=== PATIENT | female | born 1940 | race Caucasian/White ===

== ENCOUNTER 2017-06-30 09:25 | Emergency (ER) | payer MEDICARE, OTHER ==
--- NOTE | 2017-06-30 10:39 | EDM.PDOC ---
ED HPI GENERAL MEDICAL PROBLEM - General Chief Complaint: General Stated Complaint: ILL FLU VERY TIRED Time Seen by Provider: 06/30/17 10:34 Source of Information: Reports: Patient, Family History Limitations: Reports: No Limitations - History of Present Illness INITIAL COMMENTS - FREE TEXT/NARRATIVE: pt has been il for several days with a hacking cough. Today she feels very achy and she is coughing alot. She is feeling more ill in the last 36 hours. Onset: Gradual, Other ( last 36 hours. ) Duration: Hour(s): Location: Reports: Chest, Other (pt is not eating. ) Associated Symptoms: Reports: Cough, Diaphoresis, Loss of Appetite, Weakness headache and pain across lower back Pain Score (Numeric/FACES): 6 - Related Data Allergies Allergy/AdvReac Type Severity Reaction Status Date / Time codeine Allergy Mild Nausea Verified 06/30/17 09:52 Home Meds: Home Meds Acyclovir [Zovirax] 200 mg PO DAILY 06/30/17 [History] Biotin 10,000 mcg PO DAILY 06/30/17 [History] Estradiol [Estradiol] 2 mg PO DAILY 06/30/17 [History] Fexofenadine [Anne-Marie] 180 mg PO ASDIRECTED PRN 06/30/17 [History] Ibrutinib [Imbruvica] 420 mg PO DAILY 06/30/17 [History] Past Medical History Cardiovascular History: Reports: High Cholesterol Musculoskeletal History: Reports: Other (See Below) Other Musculoskeletal History: osteopenia Oncologic (Cancer) History: Reports: Leukemia, Lymphoma, Other (See Below) Other Oncologic History: CLL 2013 - Infectious Disease History Infectious Disease History: Reports: Herpes - Past Surgical History HEENT Surgical History: Reports: Tonsillectomy GI Surgical History: Reports: Colonoscopy Female Surgical History: Reports: Hysterectomy, Salpingo-Oophorectomy Social & Family History - Tobacco Use Smoking Status *Q: Former Smoker Used Tobacco, but Quit: Yes Month Tobacco Last Used: 35 years ago - Caffeine Use Caffeine Use: Reports: Coffee - Recreational Drug Use Recreational Drug Use: No ED ROS GENERAL - Review of Systems Review Of Systems: See Below Constitutional: Reports: Chills, Weakness, Other ( cough) HEENT: Reports: Other (pt has had a sore throat off and on. ) Respiratory: Reports: Cough Cardiovascular: Reports: No Symptoms Endocrine: Reports: No Symptoms GI/Abdominal: Reports: Decreased Appetite, Other (pt has not vomited or had diarrhea. ) : Reports: No Symptoms, Other (pt was achy and did have some back pain. ) Musculoskeletal: Reports: Muscle Stiffness Skin: Reports: No Symptoms ED EXAM, GENERAL - Physical Exam Exam: See Below Free Text/Narrative:: pt appeared weak. She did not have a high temp-- it was 99. She was not in resp distress but was coughing frequently. Exam Limited By: No Limitations General Appearance: Alert, Other ( very pale a fatiqued appearing. ) Ears: Normal TMs Nose: Normal Inspection Throat/Mouth: Normal Inspection, Other ( no redness or exudate. ) Head: Atraumatic Neck: Normal Inspection, Other ( Pt does not have swollen nodes. ) Respiratory/Chest: Rales, Other ( Pt has a few rales at the lung bases. ) Cardiovascular: Regular Rate, Rhythm GI/Abdominal: Soft, Other (Mild epigastric tenderness) (Female) Exam: Deferred Rectal (Female) Exam: Deferred Back Exam: Normal Inspection Extremities: Normal Inspection Neurological: Alert, Oriented, Normal Cognition Course - Vital Signs Last Recorded V/S: Last Vital Signs Temp 36.2 C 06/30/17 12:51 Pulse 72 06/30/17 12:51 Resp 16 06/30/17 12:51 BP 113/74 06/30/17 12:51 Pulse Ox 98 06/30/17 12:51 - Orders/Labs/Meds Orders: Active Orders 24 hr Category Date Time Status CULTURE BLOOD [BC] Urgent Lab 06/30/17 11:58 Received CULTURE BLOOD [BC] Urgent Lab 06/30/17 12:02 Received CULTURE URINE [RM] Stat Lab 06/30/17 12:56 Received Sodium Chloride 0.9% [Normal Saline] 1,000 ml Med 06/30/17 11:15 Active IV ASDIRECTED Sodium Chloride 0.9% [Normal Saline] 1,000 ml Med 06/30/17 12:45 Active IV ASDIRECTED Blood Culture x2 Reflex Set [OM.PC] Urgent Oth 06/30/17 11:52 Ordered Medication Orders Sodium Chloride (Normal Saline) 1,000 mls @ 999 mls/hr IV ASDIRECTED DELORIS Last Admin: 06/30/17 11:34 Dose: 999 mls/hr Sodium Chloride (Normal Saline) 1,000 mls @ 300 mls/hr IV ASDIRECTED DELORIS Last Admin: 06/30/17 12:54 Dose: 300 mls/hr Labs: Laboratory Tests 06/30/17 06/30/17 06/30/17 Range/Units 10:30 10:30 10:59 WBC 12.7 H (4.5-11.0) K/uL RBC 4.11 (3.30-5.50) M/uL Hgb 13.3 (12.0-15.0) g/dL Hct 39.3 (36.0-48.0) % MCV 96 (80-98) fL MCH 32 H (27-31) pg MCHC 34 (32-36) % Plt Count 277 (150-400) K/uL Neut % (Auto) 76 H (36-66) % Lymph % (Auto) 14 L (24-44) % [place] % (Auto) 9 H (2-6) % Eos % (Auto) 1 L (2-4) % Add Manual Diff Yes Sodium 138 L (140-148) mmol/L Potassium 3.9 (3.6-5.2) mmol/L Chloride 105 (100-108) mmol/L Carbon Dioxide 26 (21-32) mmol/L Anion Gap 10.9 (5.0-14.0) mmol/L BUN 12 (7-18) mg/dL Creatinine 1.0 (0.6-1.0) mg/dL Est Cr Clr Drug Dosing 39.74 mL/min Estimated GFR (MDRD) 54 L (>60) Glucose 92 (74-106) mg/dL Lactic Acid (0.4-2.0) mmol/L Calcium 8.1 L (8.5-10.1) mg/dL Total Bilirubin 0.8 (0.2-1.0) mg/dL AST 11 L (15-37) U/L ALT 13 (12-78) U/L Alkaline Phosphatase 81 (46-116) U/L C-Reactive Protein (0.0-0.3) mg/dL Total Protein 6.4 (6.4-8.2) g/dL Albumin 3.0 L (3.4-5.0) g/dL Globulin 3.4 (2.3-3.5) g/dL Albumin/Globulin Ratio 0.9 L (1.2-2.2) Urine Color Yellow Urine Appearance Slightly cloudy Urine pH 7.0 (4.5-8.0) Ur Specific [place] 1.005 L (1.008-1.030) Urine Protein Negative (NEGATIVE) mg/dL Urine Glucose (UA) Normal (NEGATIVE) mg/dL Urine Ketones Negative (NEGATIVE) mg/dL Urine Occult Blood Large (NEGATIVE) Urine Nitrite Negative (NEGATIVE) Urine Bilirubin Negative (NEGATIVE) Urine Urobilinogen Normal (NORMAL) mg/dL Ur Leukocyte Esterase Negative (NEGATIVE) Urine RBC 30-40 H (0-5) Urine WBC 0-5 (0-5) Ur Epithelial Cells Moderate Amorphous Sediment Not seen Urine Bacteria Few Urine Mucus Not seen 06/30/17 06/30/17 Range/Units 11:11 12:02 WBC (4.5-11.0) K/uL RBC (3.30-5.50) M/uL Hgb (12.0-15.0) g/dL Hct (36.0-48.0) % MCV (80-98) fL MCH (27-31) pg MCHC (32-36) % Plt Count (150-400) K/uL Neut % (Auto) (36-66) % Lymph % (Auto) (24-44) % [place] % (Auto) (2-6) % Eos % (Auto) (2-4) % Add Manual Diff Sodium (140-148) mmol/L Potassium (3.6-5.2) mmol/L Chloride (100-108) mmol/L Carbon Dioxide (21-32) mmol/L Anion Gap (5.0-14.0) mmol/L BUN (7-18) mg/dL Creatinine (0.6-1.0) mg/dL Est Cr Clr Drug Dosing mL/min Estimated GFR (MDRD) (>60) Glucose (74-106) mg/dL Lactic Acid 1.1 (0.4-2.0) mmol/L Calcium (8.5-10.1) mg/dL Total Bilirubin (0.2-1.0) mg/dL AST (15-37) U/L ALT (12-78) U/L Alkaline Phosphatase (46-116) U/L C-Reactive Protein 6.13 H (0.0-0.3) mg/dL Total Protein (6.4-8.2) g/dL Albumin (3.4-5.0) g/dL Globulin (2.3-3.5) g/dL Albumin/Globulin Ratio (1.2-2.2) Urine Color Urine Appearance Urine pH (4.5-8.0) Ur Specific [place] (1.008-1.030) Urine Protein (NEGATIVE) mg/dL Urine Glucose (UA) (NEGATIVE) mg/dL Urine Ketones (NEGATIVE) mg/dL Urine Occult Blood (NEGATIVE) Urine Nitrite (NEGATIVE) Urine Bilirubin (NEGATIVE) Urine Urobilinogen (NORMAL) mg/dL Ur Leukocyte Esterase (NEGATIVE) Urine RBC (0-5) Urine WBC (0-5) Ur Epithelial Cells Amorphous Sediment Urine Bacteria Urine Mucus Meds: Medications Generic Name Dose Route Start Last Admin Trade Name Freq PRN Reason Stop Dose Admin Sodium Chloride 1,000 mls @ 999 mls/hr 06/30/17 11:15 06/30/17 11:34 Normal Saline IV 999 mls/hr ASDIRECTED DELORIS Administration Sodium Chloride 1,000 mls @ 300 mls/hr 06/30/17 12:45 06/30/17 12:54 Normal Saline IV 300 mls/hr ASDIRECTED DELORIS Administration Discontinued Medications Generic Name Dose Route Start Last Admin Trade Name Freq PRN Reason Stop Dose Admin Ceftriaxone Sodium 1 gm/ 50 mls @ 100 mls/hr 06/30/17 11:52 06/30/17 12:09 Sodium Chloride IV 06/30/17 12:21 100 mls/hr ONETIME ONE Administration - Re-Assessments/Exams Free Text/Narrative Re-Assessment/Exam: 06/30/17 13:20 pt has a wbc of 12,000. Her electrolytes look good. Her urine has 40-50 wbcs. A culture was set up, Her crp is greater than 6. Her urine was cultured and blood cultures were obtained. 06/30/17 13:21 Pt was given 1 and 1/2 liters of fluid. She did eat some and had no problems with that. She was given rocephen 1 gm iv. Departure - Departure Time of Disposition: 13:23 Disposition: Home, Self-Care 01 Condition: Fair Clinical Impression: Bronchitis, Dehydration - Discharge Information Referrals: Grisel Elias NP [Primary Care Provider] - Forms: ED Department Discharge Care Plan Goals: push fluids, zithromax 250 2 tabs now and 1 tab daily for 6 days. rtc if pt feel worse, She will be notified of her blood cultures and urine culture. robitussin ac 2 tsp q6h prn for cough. - My Orders Last 24 Hours: My Active Orders 06/30/17 11:15 Sodium Chloride 0.9% [Normal Saline] 1,000 ml IV ASDIRECTED 06/30/17 11:52 Blood Culture x2 Reflex Set [OM.PC] Urgent 06/30/17 11:58 CULTURE BLOOD [BC] Urgent 06/30/17 12:02 CULTURE BLOOD [BC] Urgent 06/30/17 12:45 Sodium Chloride 0.9% [Normal Saline] 1,000 ml IV ASDIRECTED 06/30/17 12:56 CULTURE URINE [RM] Stat - Assessment/Plan Last 24 Hours: My Active Orders 06/30/17 11:15 Sodium Chloride 0.9% [Normal Saline] 1,000 ml IV ASDIRECTED 06/30/17 11:52 Blood Culture x2 Reflex Set [OM.PC] Urgent 06/30/17 11:58 CULTURE BLOOD [BC] Urgent 06/30/17 12:02 CULTURE BLOOD [BC] Urgent 06/30/17 12:45 Sodium Chloride 0.9% [Normal Saline] 1,000 ml IV ASDIRECTED 06/30/17 12:56 CULTURE URINE [RM] Stat
--- NOTE | 2017-06-30 10:55 | CR ---
Heart size within normal limits. No focal consolidation. Pulmonary vasculature within normal limits.
[2017-06-30] MEDS ORDERED: Sodium Chloride 0.9% 1,000 ML IV SCH ×2 (11:15→12:45)
[2017-06-30] MEDS ORDERED: cefTRIAXone 1 GM in Sodium Chloride 0.9% 50 ML IV ONE (11:52)
== END 2017-06-30 13:46 | disposition home or self-care (01) ==
LOC: JP.ED 09:25
DX: J40 Bronchitis, not specified as acute or chronic (principal); E86.0 Dehydration; Z88.5 Allergy status to narcotic agent; Z79.899 Other long term (current) drug therapy; Z87.891 Personal history of nicotine dependence
CPT/HCPCS: 36415; 71020; 80053; 81001; 83605; 85025; 86140; 87040; 87086; 96361; 96365; 99284; J0696; J7040; J7050; 99283

== ENCOUNTER 2020-02-24 17:57 | Emergency (ER) | payer MEDICARE, OTHER ==
--- NOTE | 2020-02-24 19:22 | EDM.PDOC ---
ED HPI GENERAL MEDICAL PROBLEM - General Chief Complaint: Fever Stated Complaint: FEVER/CHILLS Time Seen by Provider: 02/24/20 18:38 Source of Information: Reports: Patient History Limitations: Reports: No Limitations - History of Present Illness INITIAL COMMENTS - FREE TEXT/NARRATIVE: 79 y/o female with a history of CLL (on oral chemotherapy) complains of a fever , anorexia and fatigue today. She felt well last night. She notes mild nausea , but no vomiting or diarrhea. No urinary symptoms. No cough or shortness of breath. She has a small red spot on her right ankle. - Related Data Allergies Allergy/AdvReac Type Severity Reaction Status Date / Time codeine Allergy Mild Nausea Verified 02/24/20 18:45 Home Meds: Home Meds Acyclovir [Zovirax] 200 mg PO DAILY 06/30/17 [History] Biotin 10,000 mcg PO DAILY 06/30/17 [History] Estradiol 1 mg PO DAILY 06/30/17 [History] Fexofenadine [Anne-Marie] 180 mg PO ASDIRECTED PRN 06/30/17 [History] Venetoclax [Venclexta] 400 mg PO DAILY 02/24/20 [History] Past Medical History Cardiovascular History: Reports: High Cholesterol Respiratory History: Reports: Pneumonia, Recurrent Musculoskeletal History: Reports: Other (See Below) Other Musculoskeletal History: osteopenia Hematologic History: Reports: Other (See Below) Other Hematologic History: CLL Oncologic (Cancer) History: Reports: Leukemia, Lymphoma, Other (See Below) Other Oncologic History: CLL 2013 - Infectious Disease History Infectious Disease History: Reports: Herpes - Past Surgical History HEENT Surgical History: Reports: Tonsillectomy GI Surgical History: Reports: Colonoscopy Female Surgical History: Reports: Hysterectomy, Salpingo-Oophorectomy Musculoskeletal Surgical History: Reports: None Social & Family History - Tobacco Use Smoking Status *Q: Never Smoker - Caffeine Use Caffeine Use: Reports: Coffee - Recreational Drug Use Recreational Drug Use: No ED ROS GENERAL - Review of Systems Review Of Systems: See Below Constitutional: Reports: Fever. Denies: Chills, Night Sweats, Diaphoresis HEENT: Reports: Ear Pain. Denies: Throat Pain Respiratory: Denies: Shortness of Breath, Cough Endocrine: Denies: Polydypsia, Polyuria GI/Abdominal: Reports: Nausea. Denies: Abdominal Pain, Diarrhea : Denies: Dysuria, Frequency Musculoskeletal: Reports: No Symptoms Skin: Reports: Rash Neurological: Reports: No Symptoms Psychiatric: Reports: No Symptoms ED EXAM, SEPSIS - Physical Exam Exam: See Below Exam Limited By: No Limitations General Appearance: Alert, WD/WN, No Apparent Distress Ears: Normal External Exam, Normal TMs Throat/Mouth: Normal Inspection, Normal Lips, Normal Teeth Head: Normocephalic Neck: Normal Inspection, Non-Tender. No: Lymphadenopathy (R), Lymphadenopathy ( L) Respiratory/Chest: No Respiratory Distress, Lungs Clear, Normal Breath Sounds Cardiovascular: Regular Rate, Rhythm, No Murmur GI/Abdominal Exam: Normal Bowel Sounds, Soft, Non-Tender Back: Normal Inspection, Full Range of Motion Neurological: Alert, Oriented, Normal Cognition, No Motor/Sensory Deficits Skin: Other (She has a red papule above the left ankle. No tenderness or discharge. ) Course - Vital Signs Text/Narrative:: This patient who is on Venclexta (for CLL) presents with an acute fever. Her exam, other than the fever, is unremarkable. She has one red papule on the left ankle. Her lymes test is pending. CBC, CMP are unremarkable. Her urine is negative. The chest xr looks non-acute. She will continue Tylenol for fever and follow up with her doctor if not improving. She can return to the ER as needed. Last Recorded V/S: Last Vital Signs Temp 38.7 C H 02/24/20 18:48 Pulse 95 02/24/20 18:48 Resp 16 02/24/20 18:48 BP 125/60 02/24/20 18:48 Pulse Ox 99 02/24/20 18:48 - Orders/Labs/Meds Orders: Active Orders 24 hr Category Date Time Status Chest 2V [CR] Stat Exams 02/24/20 19:14 Taken LYME, TOTAL AB TEST/REFLEX Stat Lab 02/24/20 19:30 Received Labs: Laboratory Tests 02/24/20 02/24/20 02/24/20 Range/Units 19:29 19:29 19:29 WBC 2.9 L (4.5-11.0) K/uL RBC 3.90 (3.30-5.50) M/uL Hgb 12.5 (12.0-15.0) g/dL Hct 38.8 (36.0-48.0) % MCV 100 H (80-98) fL MCH 32 H (27-31) pg MCHC 32 (32-36) % Plt Count 209 (150-400) K/uL Neut % (Auto) 75 H (36-66) % Lymph % (Auto) 7 L (24-44) % [place] % (Auto) 18 H (2-6) % Eos % (Auto) 0 L (2-4) % Baso % (Auto) 0 (0-1) % Sodium 140 (140-148) mmol/L Potassium 4.1 (3.6-5.2) mmol/L Chloride 103 (100-108) mmol/L Carbon Dioxide 27 (21-32) mmol/L Anion Gap 9.6 (5.0-14.0) mmol/L BUN 17 (7-18) mg/dL Creatinine 1.1 H (0.6-1.0) mg/dL Est Cr Clr Drug Dosing 34.73 mL/min Estimated GFR (MDRD) 48 L (>60) Glucose 110 H (74-106) mg/dL Calcium 8.5 (8.5-10.1) mg/dL Total Bilirubin 1.5 H D (0.2-1.0) mg/dL AST 17 (15-37) U/L ALT 22 (12-78) U/L Alkaline Phosphatase 84 (46-116) U/L C-Reactive Protein 0.52 H (0.0-0.3) mg/dL Total Protein 6.2 L (6.4-8.2) g/dL Albumin 3.7 (3.4-5.0) g/dL Globulin 2.5 (2.3-3.5) g/dL Albumin/Globulin Ratio 1.5 (1.2-2.2) Urine Color (YELLOW) Urine Appearance (CLEAR) Urine pH (5.0-8.0) Ur Specific [place] (1.008-1.030) Urine Protein (NEGATIVE) mg/dL Urine Glucose (UA) (NEGATIVE) mg/dL Urine Ketones (NEGATIVE) mg/dL Urine Occult Blood (NEGATIVE) Urine Nitrite (NEGATIVE) Urine Bilirubin (NEGATIVE) Urine Urobilinogen (0.2-1.0) EU/dL Ur Leukocyte Esterase (NEGATIVE) Urine RBC (0-5) Urine WBC (0-5) Ur Epithelial Cells Amorphous Sediment Urine Bacteria Urine Mucus 02/24/20 Range/Units 19:51 WBC (4.5-11.0) K/uL RBC (3.30-5.50) M/uL Hgb (12.0-15.0) g/dL Hct (36.0-48.0) % MCV (80-98) fL MCH (27-31) pg MCHC (32-36) % Plt Count (150-400) K/uL Neut % (Auto) (36-66) % Lymph % (Auto) (24-44) % [place] % (Auto) (2-6) % Eos % (Auto) (2-4) % Baso % (Auto) (0-1) % Sodium (140-148) mmol/L Potassium (3.6-5.2) mmol/L Chloride (100-108) mmol/L Carbon Dioxide (21-32) mmol/L Anion Gap (5.0-14.0) mmol/L BUN (7-18) mg/dL Creatinine (0.6-1.0) mg/dL Est Cr Clr Drug Dosing mL/min Estimated GFR (MDRD) (>60) Glucose (74-106) mg/dL Calcium (8.5-10.1) mg/dL Total Bilirubin (0.2-1.0) mg/dL AST (15-37) U/L ALT (12-78) U/L Alkaline Phosphatase (46-116) U/L C-Reactive Protein (0.0-0.3) mg/dL Total Protein (6.4-8.2) g/dL Albumin (3.4-5.0) g/dL Globulin (2.3-3.5) g/dL Albumin/Globulin Ratio (1.2-2.2) Urine Color Yellow (YELLOW) Urine Appearance Clear (CLEAR) Urine pH 7.0 (5.0-8.0) Ur Specific [place] 1.025 (1.008-1.030) Urine Protein Negative (NEGATIVE) mg/dL Urine Glucose (UA) Negative (NEGATIVE) mg/dL Urine Ketones Negative (NEGATIVE) mg/dL Urine Occult Blood Moderate H (NEGATIVE) Urine Nitrite Negative (NEGATIVE) Urine Bilirubin Negative (NEGATIVE) Urine Urobilinogen 0.2 (0.2-1.0) EU/dL Ur Leukocyte Esterase Negative (NEGATIVE) Urine RBC 5-10 H (0-5) Urine WBC 0-5 (0-5) Ur Epithelial Cells Rare Amorphous Sediment Rare Urine Bacteria Not seen Urine Mucus Not seen Meds: Medications Discontinued Medications Generic Name Dose Route Start Last Admin Trade Name Shannan PRN Reason Stop Dose Admin Acetaminophen 650 mg 02/24/20 19:23 02/24/20 19:50 Tylenol PO 02/24/20 19:24 650 mg NOW ONE Administration Departure - Departure Time of Disposition: 20:35 [facility]position[facility] Condition: Good Clinical Impression: Febrile illness, acute - Discharge Information Referrals: Shahbaz Burgos NP [Primary Care Provider] - Forms: ED Department Discharge Additional Instructions: Take Tylenol for fever. Follow up with your primary care provider or return here if you're not getting better. Sepsis Event Note (ED) - Evaluation Sepsis Screening Result: No Definite Risk - Focused Exam Vital Signs: Vital Signs Temp Pulse Resp BP Pulse Ox 02/24/20 18:48 38.7 C H 95 16 125/60 99 02/24/20 18:31 38.7 C H 95 16 125/60 99 - My Orders Last 24 Hours: My Active Orders 02/24/20 19:14 Chest 2V [CR] Stat 02/24/20 19:30 LYME, TOTAL AB TEST/REFLEX Stat - Assessment/Plan Last 24 Hours: My Active Orders 02/24/20 19:14 Chest 2V [CR] Stat 02/24/20 19:30 LYME, TOTAL AB TEST/REFLEX Stat
[2020-02-24] MEDS ORDERED: Acetaminophen 325 MG Tab PO ONE (19:23)
--- NOTE | 2020-02-25 10:14 | CR ---
CHEST: 2 view CLINICAL HISTORY:Cough COMPARISON:2017 FINDINGS: The heart size, pulmonary vascularity and hilar structures are normal. No infiltrate effusion or pneumothorax is seen. IMPRESSION: No acute cardiopulmonary process.
[2020-02-27 11:12] LABS: LYME IGG/IGM AB <0.91 ISR (0.00-0.90)
== END 2020-02-24 20:50 | disposition designated cancer center or children's hospital (05) ==
LOC: JP.ED 17:57
DX: R50.9 Fever, unspecified (principal); Z88.5 Allergy status to narcotic agent; Z79.899 Other long term (current) drug therapy
CPT/HCPCS: 36415; 71046; 80053; 81001; 85025; 86140; 86618; 99285; A9270

== ENCOUNTER 2020-02-26 22:12 | Inpatient (IN) | payer MEDICARE, OTHER ==
[2020-02-26] MEDS: Sodium Chloride 0.9% 1,000 ML IV SCH (23:19)
--- NOTE | 2020-02-26 23:53 | PCM.HP.2 ---
H&P History of Present Illness - General Date of Service: 02/26/20 Admit Problem/Dx: Admission Diagnosis/Problem Admission Diagnosis/Problem Fever of unknown origin Source of Information: Patient, EMS Notes Reviewed, Provider, RN History Limitations: Reports: No Limitations - History of Present Illness Initial Comments - Free Text/Narative: chief complaint: Fever This is a 79 year old female presents to the ER via EMS for fever since 2019. She reports had a ER visit on 02-24-2020, was discharge with Febrile Illness, she has labs pending for Lyme Disease. She continues to be weakness, fevers, nausea and vomiting. She is currently having chemotherapy for CLL. 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 But after her run on Tuesday02-24-2020, felt so tired she had to take a nap which is unusual for her, she has not been able to run since Tuesday. Onset of Symptoms: Reports: Gradual Symptom Onset Date: 02/24/20 Duration of Symptoms: Reports: Getting Worse Location: Reports: Generalized Quality: Reports: Other (muscle pain and weakness. ) Severity: Moderate Improves with: Reports: Rest Worsens with: Reports: Movement Context: Reports: Other (chemotherapy CLL) Associated Symptoms: Reports: Fever/Chills, Loss of Appetite, Malaise, Nausea/ Vomiting, Weakness - Related Data Allergies/Adverse Reactions: Allergies Allergy/AdvReac Type Severity Reaction Status Date / Time No Known Allergies Allergy Verified 02/26/20 22:20 Home Medications: Home Meds Acyclovir [Zovirax] 200 mg PO DAILY 06/30/17 [History] Biotin 10,000 mcg PO DAILY 06/30/17 [History] Estradiol 1 mg PO DAILY 06/30/17 [History] Fexofenadine [Anne-Marie] 180 mg PO ASDIRECTED PRN 06/30/17 [History] Venetoclax [Venclexta] 400 mg PO DAILY 02/24/20 [History] Past Medical History Cardiovascular History: Reports: High Cholesterol Respiratory History: Reports: Pneumonia, Recurrent DISPERSION MIXER History: Reports: Musculoskeletal History: Reports: Other (See Below) Other Musculoskeletal History: osteopenia Hematologic History: Reports: Other (See Below) Other Hematologic History: CLL Immunologic History: Reports: Immunosuppression Oncologic (Cancer) History: Reports: Leukemia, Lymphoma, Other (See Below) Other Oncologic History: CLL 2013 - Infectious Disease History Infectious Disease History: Reports: Chicken Pox - Past Surgical History HEENT Surgical History: Reports: Tonsillectomy GI Surgical History: Reports: Colonoscopy Female Surgical History: Reports: Hysterectomy, Salpingo-Oophorectomy Musculoskeletal Surgical History: Reports: None Social & Family History - Tobacco Use Smoking Status *Q: Never Smoker - Caffeine Use Caffeine Use: Reports: Coffee - Living Situation & Occupation Living situation: Reports: Occupation: Retired (lives with in [place], [place]. Has 3 adult children and many Grandchildren.) H&P Review of Systems - Review of Systems: Review Of Systems: See Below General: Reports: Fever, Chills, Malaise, Weakness, Fatigue, Decreased Appetite HEENT: Reports: No Symptoms Pulmonary: Reports: No Symptoms Cardiovascular: Reports: No Symptoms Gastrointestinal: Reports: Nausea, Vomiting Genitourinary: Reports: No Symptoms Musculoskeletal: Reports: Muscle Pain, Muscle Stiffness, Other (generalized weakness) Skin: Reports: Other (left medial ankle with possible tick or insect bite. ) Psychiatric: Reports: No Symptoms Neurological: Reports: Weakness Hematologic/Lymphatic: Reports: No Symptoms Immunologic: Reports: No Symptoms Exam - Exam Exam: See Below - Vital Signs Vital Signs: Last Vital Signs Temp 38.3 C H 02/26/20 23:20 Pulse 118 H 02/26/20 23:20 Resp 15 02/26/20 23:20 BP 102/51 L 02/26/20 23:20 Pulse Ox 96 02/26/20 23:20 Weight: 51.256 kg - Exam Quality Assessment: DVT Prophylaxis General: Alert, Oriented, Cooperative, Other (very fowler, appears younger than stated age) HEENT: PERRLA, Nares Patent, Posterior Pharynx Clear, Other (natural teeth) Neck: Supple, Trachea Midline, 2 Lungs: Clear to Auscultation, Normal Respiratory Effort Cardiovascular: Regular Rate, Regular Rhythm, Normal S1, Normal S2 GI/Abdominal Exam: Normal Bowel Sounds, Soft, Non-Tender, No Distention (Female) Exam: Deferred Rectal (Female) Exam: Deferred Back Exam: Normal Inspection, Full Range of Motion Extremities: Normal Inspection, Normal Range of Motion, Non-Tender, No Pedal Edema, Normal Capillary Refill Peripheral Pulses: 2+: Radial (L), Radial (R) Skin: Warm, Dry, Intact, Other (tiny red circular dot left medial ankle.) Neurological: Reflexes Equal Bilateral, Strength Equal Bilateral Neuro Extensive - Mental Status: Alert, Oriented x3, Normal Mood/Affect, Normal Cognition Psychiatric: Alert, Normal Affect, Normal Mood - Patient Data Lab Results Last 24 hrs: Laboratory Results - last 24 hr 02/26/20 Range/Units 23:25 WBC 3.1 L (4.5-11.0) K/uL RBC 4.16 (3.30-5.50) M/uL Hgb 13.3 (12.0-15.0) g/dL Hct 40.1 (36.0-48.0) % MCV 96 (80-98) fL MCH 32 H (27-31) pg MCHC 33 (32-36) % Plt Count 98 L (150-400) K/uL Neut % (Auto) 83 H (36-66) % Lymph % (Auto) 8 L (24-44) % [place] % (Auto) 10 H (2-6) % Eos % (Auto) 0 L (2-4) % Baso % (Auto) 0 (0-1) % Result Diagrams: 02/26/20 23:25 Sepsis Event Note - Evaluation Sepsis Screening Result: Possible Severe Sepsis Risk - Focused Exam Vital Signs: Vital Signs Temp Pulse Resp BP Pulse Ox 02/26/20 23:20 38.3 C H 118 H 15 102/51 L 96 02/26/20 22:27 37.9 C 110 H 23 H 92/41 L 97 02/26/20 22:26 37.9 C 23 H 92/41 L 97 Date Exam was Performed: 02/26/20 Time Exam was Performed: 23:48 - Problem List (1) Febrile illness, acute SNOMED Code(s): 961013558 ICD Code: R50.9 - FEVER, UNSPECIFIED Status: Acute Priority: High Current Visit: Yes (2) CLL (chronic lymphocytic leukemia) SNOMED Code(s): 36377096 ICD Code: C91.10 - CHRONIC LYMPHOCYTIC LEUK OF B-CELL TYPE NOT ACHIEVE REMIS Status: Acute Priority: High Current Visit: Yes Problem List Initiated/Reviewed/Updated: Yes Orders Last 24hrs: Active Orders 24 hr Category Date Time Status Patient Status Manage Transfer [TRANSFER] Routine ADT 02/26/20 23:38 Ordered AMYLASE [CHEM] Urgent Lab 02/26/20 23:25 Received COMPREHENSIVE METABOLIC PN,CMP [CHEM] Urgent Lab 02/26/20 23:25 Received LIPASE [CHEM] Urgent Lab 02/26/20 23:25 Received MAGNESIUM [CHEM] Urgent Lab 02/26/20 23:25 Received UA W/MICROSCOPIC [URIN] Urgent Lab 02/26/20 23:11 Ordered Sodium Chloride 0.9% [Normal Saline] 1,000 ml Med 02/26/20 23:15 Active IV ASDIRECTED Resuscitation Status Routine Resus Stat 02/26/20 23:39 Ordered Medication Orders Sodium Chloride (Normal Saline) 1,000 mls @ 125 mls/hr IV ASDIRECTED DELORIS Last Admin: 02/26/20 23:19 Dose: 125 mls/hr Assessment/Plan Comment:: ASSESSMENT / PLAN: FEBRILE ILLNESS FEBRILE ILLNESS- Mrs. Marquez was seen on 02-24-2020 ER for similar concerns of fever,chills, nausea, vomiting and generalized weakness. This evening had profound weakness where she was unable to get out of bed. EMS was called to transport to ER. She reports has been sick since Monday February 24, 2020. She had testing for Lymes disease which is pending. -Admit to [address] [place] [address] for further monitoring -IV Fluids for rehydration NS 125 mL per hour. -IV Antibiotic- Rocephin 1 gram IV every 24 hours -Melatonin 6 mg po at bedtime -Tylenol, Motrin or Oxycodone for pain control -Advise to notify nurses of any fever or worsen pain -And a.m. labs: CBC, BMP CLL- Chronic Lymphocytic Leukemia, chemotherapy medication has been changed. She was first diagnosed in 2013. -continue outpatient medications Maintenance issues -Orders home meds: chronic medication -Nutrition: regular diet -George catheter not indicated -DVT- SCD -PPI- IV Protonix 40 mg daily CODE STATUS: FULL Admission status: Admit to [address] [place] [address] Admission justification. This patient will be admitted for inpatient services and is medically appropriate meeting medical necessity for inpatient admission as outlined in my documentation. I reasonably expect the patient will require inpatient services that span. Time over 2 midnights. I reasonably expect this patient to be discharged or transferred within 96 hours after admission to the critical access hospital. Disposition: home with Primary care provider: Shahbaz Burgos NP Hospitalist: Dr. Sandoval - Mortality Measure Prognosis:: Good
--- NOTE | 2020-02-27 00:15 | EDM.PDOC ---
ED HPI GENERAL MEDICAL PROBLEM - General Chief Complaint: General Stated Complaint: MEDICAL VIA [facility] Time Seen by Provider: 02/26/20 22:30 Source of Information: Reports: Patient, EMS Notes Reviewed, Provider, RN History Limitations: Reports: No Limitations - History of Present Illness INITIAL COMMENTS - FREE TEXT/NARRATIVE: Mrs. Marquez was seen on 02-24-2020 ER for similar concerns of fever,chills, nausea, vomiting and generalized weakness. This evening had profound weakness where she was unable to get out of bed. EMS was called to transport to ER. She reports has been sick since Monday February 24, 2020. She had testing for Lymes disease which is pending. Onset: Gradual Onset Date: 02/24/20 Duration: Getting Worse Location: Reports: Generalized Quality: Reports: Other (muscle pain and weakness. ) Severity: Moderate Improves with: Reports: Rest Worsens with: Reports: Movement Associated Symptoms: Reports: Fever/Chills, Loss of Appetite, Malaise, Nausea/ Vomiting, Weakness - Related Data Allergies Allergy/AdvReac Type Severity Reaction Status Date / Time No Known Allergies Allergy Verified 02/26/20 22:20 Home Meds: Home Meds Acyclovir [Zovirax] 200 mg PO DAILY 06/30/17 [History] Biotin 10,000 mcg PO DAILY 06/30/17 [History] Estradiol 1 mg PO DAILY 06/30/17 [History] Fexofenadine [Anne-Marie] 180 mg PO ASDIRECTED PRN 06/30/17 [History] Venetoclax [Venclexta] 400 mg PO DAILY 02/24/20 [History] Past Medical History Cardiovascular History: Reports: High Cholesterol Respiratory History: Reports: Pneumonia, Recurrent APPLICATIONS TESTER History: Reports: Musculoskeletal History: Reports: Other (See Below) Other Musculoskeletal History: osteopenia Hematologic History: Reports: Other (See Below) Other Hematologic History: CLL Immunologic History: Reports: Immunosuppression Oncologic (Cancer) History: Reports: Leukemia, Lymphoma, Other (See Below) Other Oncologic History: CLL 2013 - Infectious Disease History Infectious Disease History: Reports: Chicken Pox - Past Surgical History HEENT Surgical History: Reports: Tonsillectomy GI Surgical History: Reports: Colonoscopy Female Surgical History: Reports: Hysterectomy, Salpingo-Oophorectomy Musculoskeletal Surgical History: Reports: None Social & Family History - Tobacco Use Smoking Status *Q: Never Smoker - Caffeine Use Caffeine Use: Reports: Coffee - Living Situation & Occupation Living situation: Reports: Occupation: Retired (lives with in [place], [place]. Has 3 adult children and many Grandchildren.) ED ROS GENERAL - Review of Systems Review Of Systems: See Below Constitutional: Reports: Fever, Chills, Malaise, Weakness, Fatigue, Decreased Appetite HEENT: Reports: No Symptoms Respiratory: Reports: No Symptoms Cardiovascular: Reports: No Symptoms Endocrine: Reports: Fatigue GI/Abdominal: Reports: Nausea, Vomiting : Reports: No Symptoms Musculoskeletal: Reports: Joint Pain, Muscle Pain, Muscle Stiffness, Other ( generalized weakness) Skin: Reports: Other (possible insect/tick bite to left medial ankle.) Neurological: Reports: Weakness Psychiatric: Reports: Hallucinations Hematologic/Lymphatic: Reports: Other (CLL) Immunologic: Reports: No Symptoms ED EXAM, GENERAL - Physical Exam Exam: See Below Exam Limited By: No Limitations General Appearance: Alert, WD/WN, No Apparent Distress, Mild Distress, Thin, Other (appears younger than stated age, very fowler) Eye Exam: Bilateral Eye: EOMI, Normal Inspection, PERRL Ears: Normal External Exam, Normal Canal, Hearing Grossly Normal, Normal TMs Ear Exam: Bilateral Ear: Auricle Normal, Canal Normal, TM normal Nose: Normal Inspection, Normal Mucosa, No Blood Throat/Mouth: Normal Inspection, Normal Lips, Normal Teeth, Normal Gums, Normal Oropharynx, Normal Voice, No Airway Compromise Head: Atraumatic, Normocephalic Neck: Normal Inspection, Supple, Non-Tender, Full Range of Motion Respiratory/Chest: No Respiratory Distress, Lungs Clear, Normal Breath Sounds, No Accessory Muscle Use, Chest Non-Tender Cardiovascular: Normal Peripheral Pulses, Regular Rate, Rhythm, No Edema, No Gallop, No JVD, No Murmur, No Rub Peripheral Pulses: 2+: Radial (L), Radial (R) GI/Abdominal: Normal Bowel Sounds, Soft, Non-Tender, No Distention (Female) Exam: Deferred Rectal (Female) Exam: Deferred Back Exam: Normal Inspection, Full Range of Motion Extremities: Normal Inspection, Normal Range of Motion, Non-Tender, No Pedal Edema, Normal Capillary Refill Neurological: Alert, Oriented, CN II-XII Intact, Normal Cognition, Normal Gait, Normal Reflexes, No Motor/Sensory Deficits Psychiatric: Normal Affect, Normal Mood Skin Exam: Warm, Dry, Intact, Normal Color, No Rash Lymphatic: No Adenopathy Course - Vital Signs Last Recorded V/S: Last Vital Signs Temp 38.3 C H 02/26/20 23:20 Pulse 118 H 02/26/20 23:20 Resp 15 02/26/20 23:20 BP 102/51 L 02/26/20 23:20 Pulse Ox 96 02/26/20 23:20 - Orders/Labs/Meds Orders: Active Orders 24 hr Category Date Time Status Patient Status Manage Transfer [TRANSFER] Routine ADT 02/26/20 23:38 Active UA W/MICROSCOPIC [URIN] Urgent Lab 02/26/20 23:11 Ordered Sodium Chloride 0.9% [Normal Saline] 1,000 ml Med 02/26/20 23:15 Active IV ASDIRECTED Resuscitation Status Routine Resus Stat 02/26/20 23:39 Ordered Medication Orders Sodium Chloride (Normal Saline) 1,000 mls @ 125 mls/hr IV ASDIRECTED DELORIS Last Admin: 02/26/20 23:19 Dose: 125 mls/hr Labs: Laboratory Tests 02/26/20 02/26/20 02/26/20 Range/Units 23:25 23:25 23:25 WBC 3.1 L (4.5-11.0) K/uL RBC 4.16 (3.30-5.50) M/uL Hgb 13.3 (12.0-15.0) g/dL Hct 40.1 (36.0-48.0) % MCV 96 (80-98) fL MCH 32 H (27-31) pg MCHC 33 (32-36) % Plt Count 98 L (150-400) K/uL Neut % (Auto) 83 H (36-66) % Lymph % (Auto) 8 L (24-44) % [place] % (Auto) 10 H (2-6) % Eos % (Auto) 0 L (2-4) % Baso % (Auto) 0 (0-1) % Sodium 134 L (140-148) mmol/L Potassium 3.9 (3.6-5.2) mmol/L Chloride 100 (100-108) mmol/L Carbon Dioxide 22 (21-32) mmol/L Anion Gap 15.9 H (5.0-14.0) mmol/L BUN 15 (7-18) mg/dL Creatinine 1.1 H (0.6-1.0) mg/dL Est Cr Clr Drug Dosing 34.11 mL/min Estimated GFR (MDRD) 48 L (>60) Glucose 131 H (74-106) mg/dL Calcium 8.3 L (8.5-10.1) mg/dL Magnesium 2.0 (1.8-2.4) mg/dL Total Bilirubin 0.9 (0.2-1.0) mg/dL AST 44 H D (15-37) U/L ALT 40 D (12-78) U/L Alkaline Phosphatase 100 (46-116) U/L Total Protein 6.3 L (6.4-8.2) g/dL Albumin 3.3 L (3.4-5.0) g/dL Globulin 3.0 (2.3-3.5) g/dL Albumin/Globulin Ratio 1.1 L (1.2-2.2) Amylase 55 (25-115) U/L Lipase 169 (73-393) U/L Meds: Medications Generic Name Dose Route Start Last Admin Trade Name Freq PRN Reason Stop Dose Admin Sodium Chloride 1,000 mls @ 125 mls/hr 02/26/20 23:15 02/26/20 23:19 Normal Saline IV 125 mls/hr ASDIRECTED [facility] Administration - Re-Assessments/Exams Free Text/Narrative Re-Assessment/Exam: 02/27/20 00:14 IV fluids, Labs, will admit to hospital for IV fluids and antibiotics. Mrs. Marquez agrees with plan of care. Departure - Departure Time of Disposition: 00:16 Disposition: Admitted As Inpatient 67 Condition: Good Clinical Impression: CLL (chronic lymphocytic leukemia), Febrile illness, acute - Discharge Information *PRESCRIPTION DRUG MONITORING PROGRAM REVIEWED*: Not Applicable *COPY OF PRESCRIPTION DRUG MONITORING REPORT IN PATIENT LEO: Not Applicable Instructions: Fever, Adult Referrals: Shahbaz Burgos NP [Primary Care Provider] - Sepsis Event Note (ED) - Evaluation Sepsis Screening Result: Possible Severe Sepsis Risk - Focused Exam Vital Signs: Vital Signs Temp Pulse Resp BP Pulse Ox 02/26/20 23:20 38.3 C H 118 H 15 102/51 L 96 02/26/20 22:27 37.9 C 110 H 23 H 92/41 L 97 02/26/20 22:26 37.9 C 23 H 92/41 L 97 - Problem List & Annotations (1) Febrile illness, acute SNOMED Code(s): 229158498 Code(s): R50.9 - FEVER, UNSPECIFIED Status: Acute Priority: High Current Visit: Yes (2) CLL (chronic lymphocytic leukemia) SNOMED Code(s): 00976125 Code(s): C91.10 - CHRONIC LYMPHOCYTIC LEUK OF B-CELL TYPE NOT ACHIEVE REMIS Status: Acute Priority: High Current Visit: Yes - My Orders Last 24 Hours: My Active Orders 02/26/20 23:11 UA W/MICROSCOPIC [URIN] Urgent 02/26/20 23:15 Sodium Chloride 0.9% [Normal Saline] 1,000 ml IV ASDIRECTED 02/26/20 23:38 Patient Status Manage Transfer [TRANSFER] Routine 02/26/20 23:39 Resuscitation Status Routine - Assessment/Plan Last 24 Hours: My Active Orders 02/26/20 23:11 UA W/MICROSCOPIC [URIN] Urgent 02/26/20 23:15 Sodium Chloride 0.9% [Normal Saline] 1,000 ml IV ASDIRECTED 02/26/20 23:38 Patient Status Manage Transfer [TRANSFER] Routine 02/26/20 23:39 Resuscitation Status Routine
[2020-02-27] MEDS ORDERED: Docusate Sodium 100 MG Cap PO PRN (00:45)
[2020-02-27] MEDS ORDERED: Morphine 2 MG/ML Syringe IVPUSH PRN (00:45)
[2020-02-27] MEDS ORDERED: LORazepam 2 MG/ML SDV IV PRN (00:45)
[2020-02-27] MEDS ORDERED: oxyCODONE 5 MG Tab PO PRN (00:45)
[2020-02-27] MEDS ORDERED: Bisacodyl 5 MG Tab PO PRN (00:45)
[2020-02-27] MEDS ORDERED: Ondansetron 4 MG/2 ML SDV IV PRN (00:45)
[2020-02-27] MEDS ORDERED: Ketorolac 30 MG/ML SDV IVPUSH PRN ×2 (00:45→10:26)
[2020-02-27] MEDS ORDERED: Ibuprofen 600 MG Tab PO PRN (00:45)
[2020-02-27] MEDS ORDERED: Ondansetron 4 MG Tab.DIS PO PRN (00:45)
[2020-02-27] MEDS ORDERED: cefTRIAXone 1 GM in Sodium Chloride 0.9% 50 ML IV SCH ×2 (01:00→21:00)
[2020-02-27] MEDS ORDERED: Melatonin 3 MG Tab PO PRN (01:13)
[2020-02-27] MEDS: Sodium Chloride 0.9% 1,000 ML IV SCH ×2 (08:51→16:30)
[2020-02-27] MEDS ORDERED: VENETOCLAX 400 MG PO SCH (09:00)
[2020-02-27] MEDS ORDERED: Pantoprazole 40 MG Vial IV SCH (09:00)
[2020-02-27] MEDS: BIOTIN 10000 MCG PO SCH (11:24)
[2020-02-27] MEDS: Estradiol 0.5 MG Tab PO SCH (11:25)
[2020-02-27] MEDS: Pantoprazole 40 MG Tab.CR PO SCH (11:26)
[2020-02-27] MEDS: Acyclovir 200 MG Cap PO SCH (11:26)
--- NOTE | 2020-02-27 11:29 | PCM.PN ---
- General Info Date of Service: 02/27/20 Subjective Update: No acute events since admission but she continues to have a temperature elevation.She feels a little better with less headache and myalgias. She is still weak but feels a little better. Appetite is coming back slightly. Laboratory studies this morning were repeated and are stable from last night. 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 Functional Status: Reports: Pain Controlled - Review of Systems General: Reports: Fever, Weakness - Patient Data Vitals - Most Recent: Last Vital Signs Temp 38.6 C H 02/27/20 08:18 Pulse 84 02/27/20 08:18 Resp 16 02/27/20 08:18 BP 113/45 L 02/27/20 08:18 Pulse Ox 95 02/27/20 08:18 Weight - Most Recent: 49.532 kg I&O - Last 24 Hours: Intake & Output 02/26/20 02/27/20 02/27/20 22:59 06:59 14:59 Intake Total 656 Output Total 100 350 Balance -100 306 Lab Results Last 24 Hours: Laboratory Results - last 24 hr 02/26/20 02/26/20 02/26/20 Range/Units 23:25 23:25 23:25 WBC 3.1 L (4.5-11.0) K/uL RBC 4.16 (3.30-5.50) M/uL Hgb 13.3 (12.0-15.0) g/dL Hct 40.1 (36.0-48.0) % MCV 96 (80-98) fL MCH 32 H (27-31) pg MCHC 33 (32-36) % Plt Count 98 L (150-400) K/uL Neut % (Auto) 83 H (36-66) % Lymph % (Auto) 8 L (24-44) % [place] % (Auto) 10 H (2-6) % Eos % (Auto) 0 L (2-4) % Baso % (Auto) 0 (0-1) % Sodium 134 L (140-148) mmol/L Potassium 3.9 (3.6-5.2) mmol/L Chloride 100 (100-108) mmol/L Carbon Dioxide 22 (21-32) mmol/L Anion Gap 15.9 H (5.0-14.0) mmol/L BUN 15 (7-18) mg/dL Creatinine 1.1 H (0.6-1.0) mg/dL Est Cr Clr Drug Dosing 34.11 mL/min Estimated GFR (MDRD) 48 L (>60) Glucose 131 H (74-106) mg/dL Calcium 8.3 L (8.5-10.1) mg/dL Magnesium 2.0 (1.8-2.4) mg/dL Total Bilirubin 0.9 (0.2-1.0) mg/dL AST 44 H D (15-37) U/L ALT 40 D (12-78) U/L Alkaline Phosphatase 100 (46-116) U/L Total Protein 6.3 L (6.4-8.2) g/dL Albumin 3.3 L (3.4-5.0) g/dL Globulin 3.0 (2.3-3.5) g/dL Albumin/Globulin Ratio 1.1 L (1.2-2.2) Amylase 55 (25-115) U/L Lipase 169 (73-393) U/L Urine Color (YELLOW) Urine Appearance (CLEAR) Urine pH (5.0-8.0) Ur Specific [place] (1.008-1.030) Urine Protein (NEGATIVE) mg/dL Urine Glucose (UA) (NEGATIVE) mg/dL Urine Ketones (NEGATIVE) mg/dL Urine Occult Blood (NEGATIVE) Urine Nitrite (NEGATIVE) Urine Bilirubin (NEGATIVE) Urine Urobilinogen (0.2-1.0) EU/dL Ur Leukocyte Esterase (NEGATIVE) Urine RBC (0-5) Urine WBC (0-5) Ur Epithelial Cells Urine Bacteria Urine Mucus 02/27/20 02/27/20 02/27/20 Range/Units 01:09 05:11 05:11 WBC 2.3 L (4.5-11.0) K/uL RBC 3.73 (3.30-5.50) M/uL Hgb 12.1 (12.0-15.0) g/dL Hct 36.2 (36.0-48.0) % MCV 97 (80-98) fL MCH 32 H (27-31) pg MCHC 33 (32-36) % Plt Count 88 L (150-400) K/uL Neut % (Auto) 78 H (36-66) % Lymph % (Auto) 12 L (24-44) % [place] % (Auto) 10 H (2-6) % Eos % (Auto) 0 L (2-4) % Baso % (Auto) 0 (0-1) % Sodium 136 L (140-148) mmol/L Potassium 3.6 (3.6-5.2) mmol/L Chloride 103 (100-108) mmol/L Carbon Dioxide 26 (21-32) mmol/L Anion Gap 10.6 (5.0-14.0) mmol/L BUN 13 (7-18) mg/dL Creatinine 1.0 (0.6-1.0) mg/dL Est Cr Clr Drug Dosing 36.25 mL/min Estimated GFR (MDRD) 54 L (>60) Glucose 115 H (74-106) mg/dL Calcium 7.7 L (8.5-10.1) mg/dL Magnesium (1.8-2.4) mg/dL Total Bilirubin (0.2-1.0) mg/dL AST (15-37) U/L ALT (12-78) U/L Alkaline Phosphatase (46-116) U/L Total Protein (6.4-8.2) g/dL Albumin (3.4-5.0) g/dL Globulin (2.3-3.5) g/dL Albumin/Globulin Ratio (1.2-2.2) Amylase (25-115) U/L Lipase (73-393) U/L Urine Color Yellow (YELLOW) Urine Appearance Cloudy A (CLEAR) Urine pH 6.0 (5.0-8.0) Ur Specific [place] >= 1.030 (1.008-1.030) Urine Protein >=300 H (NEGATIVE) mg/dL Urine Glucose (UA) Negative (NEGATIVE) mg/dL Urine Ketones 80 H (NEGATIVE) mg/dL Urine Occult Blood Large H (NEGATIVE) Urine Nitrite Negative (NEGATIVE) Urine Bilirubin Moderate H (NEGATIVE) Urine Urobilinogen 0.2 (0.2-1.0) EU/dL Ur Leukocyte Esterase Negative (NEGATIVE) Urine RBC 10-20 H (0-5) Urine WBC 0-5 (0-5) Ur Epithelial Cells Moderate Urine Bacteria Moderate Urine Mucus Few Med Orders - Current: Current Medications Acetaminophen (Tylenol) 650 mg PO Q4H PRN PRN Reason: Pain (Mild 1-3)/fever Acyclovir (Zovirax) 200 mg PO DAILY [facility] Last Admin: 02/27/20 11:26 Dose: 200 mg Documented by: Bisacodyl (Dulcolax) 5 mg PO DAILY PRN PRN Reason: Constipation Docusate Sodium (Colace) 100 mg PO BID PRN PRN Reason: Constipation Estradiol (Estradiol) 1 mg PO DAILY [facility] Last Admin: 02/27/20 11:25 Dose: 1 mg Documented by: Sodium Chloride (Normal Saline) 1,000 mls @ 125 mls/hr IV ASDIRECTED [facility] Last Admin: 02/27/20 08:51 Dose: 125 mls/hr Documented by: Ceftriaxone Sodium 1 gm/ (Sodium Chloride) 50 mls @ 100 mls/hr IV Q24H [facility] Ibuprofen (Motrin) 600 mg PO Q6H PRN PRN Reason: Pain/Fever Ketorolac Tromethamine (Toradol) 15 mg IVPUSH Q6H PRN PRN Reason: Pain (moderate 4-6) Lorazepam (Ativan) 1 mg IV Q6H PRN PRN Reason: Nausea/Vomiting Melatonin (Melatonin) 6 mg PO BEDTIME PRN PRN Reason: Sleep Morphine Sulfate (Morphine) 2 mg IVPUSH Q2H PRN PRN Reason: Pain (severe 7-10) Biotin (Biotin) 10, (000 McgPom) 0 mcg PO DAILY [facility] Last Admin: 02/27/20 11:24 Dose: Not Given Documented by: Venetoclax ( Venclexta) 400 Mg Pom 0 mg PO DAILY [facility] Ondansetron HCl (Zofran Odt) 4 mg PO Q6H PRN PRN Reason: Nausea able to take PO Ondansetron HCl (Zofran) 4 mg IV Q4H PRN PRN Reason: Nausea/Vomiting Oxycodone HCl (Oxycodone) 5 mg PO Q4H PRN PRN Reason: Pain (moderate 4-6) Pantoprazole Sodium (Protonix) 40 mg PO DAILY@0730 [facility] Last Admin: 02/27/20 11:26 Dose: 40 mg Documented by: Discontinued Medications Ceftriaxone Sodium 1 gm/ (Sodium Chloride) 50 mls @ 100 mls/hr IV Q24H [facility] Last Admin: 02/27/20 01:28 Dose: 100 mls/hr Documented by: Ketorolac Tromethamine (Toradol) 30 mg IVPUSH Q6H PRN PRN Reason: Pain (moderate 4-6) Melatonin (Melatonin) 6 mg PO BEDTIME DELORIS - Exam Quality Assessment: No: Supplemental Oxygen General: Alert, Oriented, Cooperative, No Acute Distress Lungs: Normal Respiratory Effort Cardiovascular: Regular Rate, Regular Rhythm GI/Abdominal Exam: Soft, No Distention Extremities: No Pedal Edema Psy/Mental Status: Alert, Normal Affect Sepsis Event Note - Evaluation Sepsis Screening Result: Sepsis Risk - Focused Exam Vital Signs: Vital Signs Temp Pulse Resp BP Pulse Ox 02/27/20 08:18 38.6 C H 84 16 113/45 L 95 02/27/20 04:10 36.6 C 86 18 91/46 L 97 02/27/20 00:35 37.7 C 95 18 100/47 L 95 Date Exam was Performed: 02/27/20 Time Exam was Performed: 15:04 - Problem List Review Problem List Initiated/Reviewed/Updated: Yes - My Orders Last 24 Hours: My Active Orders 02/27/20 10:26 Ketorolac [Toradol] 15 mg IVPUSH Q6H PRN 02/28/20 05:00 BASIC METABOLIC PANEL,BMP [CHEM] Timed CBC W/O DIFF,HEMOGRAM [HEME] Timed (1) - Plan Plan:: ASSESSMENT / PLAN: Acute anaplasmosis, suspected-there is certainly a potential for tick exposure and laboratory studies as well as history would be compatible with this. Getting better with antibiotics and fluids. There is no other obvious source for infection at this time. -Continue IV fluids -Continue ceftriaxone today, anticipate transition to doxycycline tomorrow -Melatonin 6 mg po at bedtime -Symptomatic management of myalgias and fever -Repeat labs in the morning -Follow-up tick serologies CLL- Chronic Lymphocytic Leukemia has been stable. She is on oral chemotherapy. She will be talking to her oncologist today. -continue outpatient medications Maintenance issues -Nutrition: regular diet -George catheter not indicated -DVT- SCD -GI-PPI Disposition: I would anticipate discharge home after the hospital stay Skinny Sandoval MD
[2020-02-27] MEDS: Acetaminophen 325 MG Tab PO PRN ×3 (13:15→23:13)
[2020-02-27] MEDS: VENETOCLAX 100 MG PO SCH (14:50)
[2020-02-27] MEDS ORDERED: Melatonin 3 MG Tab PO SCH (21:00)
[2020-02-28] MEDS: Sodium Chloride 0.9% 1,000 ML IV SCH (01:10)
[2020-02-28] MEDS: Acetaminophen 325 MG Tab PO PRN ×3 (03:41→11:57)
[2020-02-28] MEDS: Pantoprazole 40 MG Tab.CR PO SCH (08:11)
[2020-02-28] MEDS: BIOTIN 10000 MCG PO SCH (10:57)
[2020-02-28] MEDS: Potassium Chloride 20 MEQ Tab.ER PO SCH ×2 (11:30→21:54)
[2020-02-28] MEDS: Doxycycline 100 MG in Sodium Chloride 0.9% 100 ML IV SCH ×2 (11:30→21:57)
[2020-02-28] MEDS: Estradiol 0.5 MG Tab PO SCH (11:44)
[2020-02-28] MEDS: VENETOCLAX 100 MG PO SCH (11:45)
[2020-02-28] MEDS: Acyclovir 200 MG Cap PO SCH (11:45)
--- NOTE | 2020-02-28 12:18 | PCM.PN ---
- General Info Date of Service: 02/28/20 Subjective Update: No acute events overnight. Blood pressures are on the low side of normal but stable. She did have fevers again overnight. Symptomatically she is feeling better with improvements in her strength and appetite. No significant headache or myalgias reported today. She continues to have leukopenia and thrombocytopenia. In general she is feeling better but is frustrated with the persistence of the fevers. She did talk to her oncologist yesterday and they re commended continuing her chemotherapy for CLL. Functional Status: Reports: Pain Controlled, Tolerating Diet - Review of Systems General: Reports: Fever, Weakness - Patient Data Vitals - Most Recent: Last Vital Signs Temp 37.1 C 02/28/20 11:46 Pulse 82 02/28/20 11:46 Resp 16 02/28/20 11:46 BP 107/47 L 02/28/20 11:46 Pulse Ox 94 L 02/28/20 11:46 Weight - Most Recent: 49.532 kg I&O - Last 24 Hours: Intake & Output 02/27/20 02/28/20 02/28/20 22:59 06:59 14:59 Intake Total 2315 1497 Output Total 625 450 575 Balance 1690 1047 -575 Lab Results Last 24 Hours: Laboratory Results - last 24 hr 02/28/20 02/28/20 Range/Units 05:45 05:45 WBC 1.7 L (4.5-11.0) K/uL RBC 3.27 L (3.30-5.50) M/uL Hgb 10.3 L (12.0-15.0) g/dL Hct 31.7 L (36.0-48.0) % MCV 97 (80-98) fL MCH 32 H (27-31) pg MCHC 33 (32-36) % Plt Count 53 L (150-400) K/uL Sodium 137 L (140-148) mmol/L Potassium 3.1 L (3.6-5.2) mmol/L Chloride 105 (100-108) mmol/L Carbon Dioxide 24 (21-32) mmol/L Anion Gap 11.1 (5.0-14.0) mmol/L BUN 10 (7-18) mg/dL Creatinine 1.1 H (0.6-1.0) mg/dL Est Cr Clr Drug Dosing 32.96 mL/min Estimated GFR (MDRD) 48 L (>60) Glucose 124 H (74-106) mg/dL Calcium 7.4 L (8.5-10.1) mg/dL Med Orders - Current: Current Medications Acetaminophen (Tylenol) 650 mg PO Q4H PRN PRN Reason: Pain (Mild 1-3)/fever Last Admin: 02/28/20 11:57 Dose: 650 mg Documented by: Acyclovir (Zovirax) 200 mg PO DAILY [facility] Last Admin: 02/28/20 11:45 Dose: 200 mg Documented by: Bisacodyl (Dulcolax) 5 mg PO DAILY PRN PRN Reason: Constipation Docusate Sodium (Colace) 100 mg PO BID PRN PRN Reason: Constipation Estradiol (Estradiol) 1 mg PO DAILY [facility] Last Admin: 02/28/20 11:44 Dose: 1 mg Documented by: Sodium Chloride (Normal Saline) 1,000 mls @ 125 mls/hr IV ASDIRECTED [facility] Last Admin: 02/28/20 01:10 Dose: 125 mls/hr Documented by: Doxycycline Hyclate 100 mg/ (Sodium Chloride) 100 mls @ 100 mls/hr IV Q12H [facility] Last Admin: 02/28/20 11:30 Dose: 100 mls/hr Documented by: Ibuprofen (Motrin) 600 mg PO Q6H PRN PRN Reason: Pain/Fever Ketorolac Tromethamine (Toradol) 15 mg IVPUSH Q6H PRN PRN Reason: Pain (moderate 4-6) Stop: 03/03/20 10:27 Lorazepam (Ativan) 1 mg IV Q6H PRN PRN Reason: Nausea/Vomiting Melatonin (Melatonin) 6 mg PO BEDTIME PRN PRN Reason: Sleep Morphine Sulfate (Morphine) 2 mg IVPUSH Q2H PRN PRN Reason: Pain (severe 7-10) Biotin (Biotin) 10, (000 McgPom) 0 mcg PO DAILY [facility] Last Admin: 02/28/20 10:57 Dose: Not Given Documented by: Venetoclax ( Venclexta) 100 Mg Pom 0 mg PO DAILY [facility] Last Admin: 02/28/20 11:45 Dose: 400 mg Documented by: Ondansetron HCl (Zofran Odt) 4 mg PO Q6H PRN PRN Reason: Nausea able to take PO Ondansetron HCl (Zofran) 4 mg IV Q4H PRN PRN Reason: Nausea/Vomiting Last Admin: 02/27/20 13:15 Dose: 4 mg Documented by: Oxycodone HCl (Oxycodone) 5 mg PO Q4H PRN PRN Reason: Pain (moderate 4-6) Pantoprazole Sodium (Protonix) 40 mg PO DAILY@0730 [facility] Last Admin: 02/28/20 08:11 Dose: 40 mg Documented by: Potassium Chloride (Klor-Con M20) 40 meq PO BID [facility] Last Admin: 02/28/20 11:30 Dose: 40 meq Documented by: Discontinued Medications Ceftriaxone Sodium 1 gm/ (Sodium Chloride) 50 mls @ 100 mls/hr IV Q24H [facility] Last Admin: 02/27/20 01:28 Dose: 100 mls/hr Documented by: Ceftriaxone Sodium 1 gm/ (Sodium Chloride) 50 mls @ 100 mls/hr IV Q24H [facility] Last Admin: 02/27/20 20:54 Dose: 100 mls/hr Documented by: Ketorolac Tromethamine (Toradol) 30 mg IVPUSH Q6H PRN PRN Reason: Pain (moderate 4-6) Melatonin (Melatonin) 6 mg PO BEDTIME DELORIS - Exam Quality Assessment: No: Supplemental Oxygen General: Alert, Oriented, Cooperative, No Acute Distress Lungs: Normal Respiratory Effort Cardiovascular: Regular Rate, Regular Rhythm GI/Abdominal Exam: Soft, No Distention Extremities: No Pedal Edema Psy/Mental Status: Alert, Normal Affect Sepsis Event Note - Evaluation Sepsis Screening Result: No Definite Risk - Focused Exam Vital Signs: Vital Signs Temp Temp Pulse Resp BP Pulse Ox 02/28/20 11:46 37.1 C 82 16 107/47 L 94 L 02/28/20 08:05 37.6 C 76 16 110/40 L 96 02/28/20 04:11 37.6 C 02/28/20 03:41 38.7 C H 02/28/20 03:37 38.8 C H 91 18 93/37 L 98 Date Exam was Performed: 02/28/20 Time Exam was Performed: 13:31 - Problem List Review Problem List Initiated/Reviewed/Updated: Yes - My Orders Last 24 Hours: My Active Orders 02/28/20 09:00 Potassium Chloride [Klor-Con M20] 40 meq PO BID 02/28/20 10:00 Doxycycline [Vibramycin] 100 mg Sodium Chloride 0.9% [Normal Saline] 100 ml IV Q12H 02/28/20 12:17 Convert IV to Saline Lock [OM.PC] Routine 02/29/20 05:00 BASIC METABOLIC PANEL,BMP [CHEM] Timed CBC W/O DIFF,HEMOGRAM [HEME] Timed (1) - Plan Plan:: ASSESSMENT / PLAN: Acute anaplasmosis, suspected-getting better with IV fluids and treatment for suspected tick disease but still having some fevers. She is immunocompromised as discussed below. Tick serologies are still pending. Improving but not quite safe for discharge as of yet. -Saline lock IV fluids -Change antibiotics to doxycycline -Melatonin 6 mg po at bedtime -Symptomatic management of myalgias and fever -Repeat labs in the morning -Follow-up tick serologies CLL- Chronic Lymphocytic Leukemia has been stable. She is on oral chemotherapy. -continue outpatient medications Maintenance issues -Nutrition: regular diet -George catheter not indicated -DVT- SCD -GI-PPI Disposition: I would anticipate discharge home after the hospital stay Skinny Sandoval MD
[2020-02-29] MEDS: Estradiol 0.5 MG Tab PO SCH (08:11)
[2020-02-29] MEDS: BIOTIN 10000 MCG PO SCH (08:11)
[2020-02-29] MEDS: VENETOCLAX 100 MG PO SCH (08:12)
[2020-02-29] MEDS: Acyclovir 200 MG Cap PO SCH (08:12)
[2020-02-29] MEDS: Potassium Chloride 20 MEQ Tab.ER PO SCH (08:13)
[2020-02-29] MEDS: Pantoprazole 40 MG Tab.CR PO SCH (08:13)
--- NOTE | 2020-02-29 10:36 | PCM.DCSUM1 ---
Discharge Summary - Hospital Course Brief History: 79-year-old female with CLL currently receiving oral chemotherapy who presented with fever, myalgias and fatigue. She was admitted for management of a febrile illness with suspicion that it may be anaplasmosis. Diagnosis: Stroke: No - Discharge Data Discharge Date: 02/29/20 Discharge Disposition: Home, Self-Care 01 Condition: Good - Referral to Home Health Primary Care Physician: Shahbaz Burgos NP - Discharge Diagnosis/Problem(s) (1) Anaplasmosis SNOMED Code(s): 444736666 ICD Code: A77.49 - OTHER EHRLICHIOSIS Status: Acute (2) CLL (chronic lymphocytic leukemia) SNOMED Code(s): 30902504 ICD Code: C91.10 - CHRONIC LYMPHOCYTIC LEUK OF B-CELL TYPE NOT ACHIEVE REMIS Status: Chronic Priority: High - Patient Summary/Data Labs Pending at D/C: Serology for anaplasmosis Hospital Course: Bev presented to the emergency room with persistent fever, weakness, nausea, vomiting as well as myalgias and headache. Work-up in the emergency room revealed a fever as well as low white count and low platelets. There was some suspicion that this may be a tickborne illness but other source of infection was not completely ruled out. There is no evidence for pneumonia or urinary tract infection. She was initially started on ceftriaxone. She received IV fluids. For the first 24 hours there was some improvement in her symptoms with resolution of her nausea and vomiting. Headache resolved. Myalgias improved but did not resolve. Strength started to improve. She did continue to have fevers throughout the first 48 hours of the hospital stay. Symptomatically she was improving during this time and her fever curve did improve slightly though she did continue to have fevers. With no other obvious source of infection and negative cultures we transition from ceftriaxone to doxycycline. After this transition her temperature curve improved dramatically. Symptoms continue to improve though her myalgias had not quite resolved. She was able to eat much better on the day 5 prior to discharge. She has been up and walking around the room without significant distress. She continues to have thrombocytopenia and leukopenia but her levels are stable. Her symptoms and laboratory studies fit nicely with anaplasmosis and she is improving with treatment for anaplasmosis. Her Lyme serology has returned and is negative but anaplasmosis serology is still pending. Plan is for continue treatment for anaplasmosis with doxycycline at the time of discharge. We reviewed the potential side effects of doxycycline and especially the increased sensitivity of the skin to the sun while on this antibiotic. She will be discharged home with early follow-up. - Patient Instructions Diet: Regular Diet as Tolerated Activity: As Tolerated Notify Provider of: Fever (if >101) Other/Special Instructions: 1. You were in the hospital for management of a febrile illness with manifestations of headache, myalgias and nausea. I suspect that the symptoms were caused by a tickborne infection called anaplasmosis. Your condition seems to be improving with your current antibiotic therapy. I do recommend ongoing antibiotic therapy with doxycycline. Please take 100 mg twice daily with food for 35 more doses. Your first dose outside the hospital will be due tonight. This medication can make your skin more sensitive to the sun so it is very important to use plenty of sunscreen or cover your skin when you are outside. You may have additional fevers after hospital discharge but I would expect that they should be low-grade and only persist for a couple of days. You can treat these with acetaminophen or ibuprofen. Please advance your activity slowly back to your usual amount as tolerated. - Discharge Plan *PRESCRIPTION DRUG MONITORING PROGRAM REVIEWED*: Not Applicable *COPY OF PRESCRIPTION DRUG MONITORING REPORT IN PATIENT LEO: Not Applicable Prescriptions/Med Rec: Doxycycline Hyclate 100 mg PO BID #35 capsule Ondansetron [Zofran ODT] 4 mg PO Q6H PRN #20 tab.dis PRN Reason: Nausea able to take PO Home Medications: Home Meds Acyclovir [Zovirax] 200 mg PO DAILY 06/30/17 [History] Biotin 10,000 mcg PO DAILY 06/30/17 [History] Estradiol 1 mg PO DAILY 06/30/17 [History] Fexofenadine [Anne-Marie] 180 mg PO ASDIRECTED PRN 06/30/17 [History] Venetoclax [Venclexta] 400 mg PO DAILY 02/24/20 [History] Doxycycline Hyclate 100 mg PO BID #35 capsule 02/29/20 [Rx] Ondansetron [Zofran ODT] 4 mg PO Q6H PRN #20 tab.dis 02/29/20 [Rx] Oxygen Therapy Mode: Room Air Patient Handouts: Ehrlichiosis and Anaplasmosis, [id number], Doxycycline tablets or capsules Referrals: Shahbaz Burgos [facility] [Primary Care Provider] - - Discharge Summary/Plan Comment DC Time >30 min.: No - Patient Data Vitals - Most Recent: Last Vital Signs Temp 37.1 C 02/29/20 07:42 Pulse 78 02/29/20 07:42 Resp 12 02/29/20 07:42 BP 114/61 02/29/20 07:42 Pulse Ox 98 02/29/20 07:42 Weight - Most Recent: 49.532 kg I&O - Last 24 hours: Intake & Output 02/28/20 02/29/20 02/29/20 22:59 06:59 14:59 Intake Total 200 Balance 200 Lab Results - Last 24 hrs: Laboratory Results - last 24 hr 02/29/20 02/29/20 Range/Units 04:30 04:30 WBC 1.3 L (4.5-11.0) K/uL RBC 3.30 (3.30-5.50) M/uL Hgb 10.3 L (12.0-15.0) g/dL Hct 31.9 L (36.0-48.0) % MCV 97 (80-98) fL MCH 31 (27-31) pg MCHC 32 (32-36) % Plt Count 46 L (150-400) K/uL Sodium 137 L (140-148) mmol/L Potassium 4.0 (3.6-5.2) mmol/L Chloride 104 (100-108) mmol/L Carbon Dioxide 24 (21-32) mmol/L Anion Gap 13.0 (5.0-14.0) mmol/L BUN 9 (7-18) mg/dL Creatinine 0.9 (0.6-1.0) mg/dL Est Cr Clr Drug Dosing 40.28 mL/min Estimated GFR (MDRD) > 60 (>60) Glucose 84 (74-106) mg/dL Calcium 8.0 L (8.5-10.1) mg/dL Med Orders - Current: Current Medications Acetaminophen (Tylenol) 650 mg PO Q4H PRN PRN Reason: Pain (Mild 1-3)/fever Last Admin: 02/28/20 11:57 Dose: 650 mg Documented by: Acyclovir (Zovirax) 200 mg PO DAILY [facility] Last Admin: 02/29/20 08:12 Dose: Not Given Documented by: Bisacodyl (Dulcolax) 5 mg PO DAILY PRN PRN Reason: Constipation Docusate Sodium (Colace) 100 mg PO BID PRN PRN Reason: Constipation Estradiol (Estradiol) 1 mg PO DAILY [facility] Last Admin: 02/29/20 08:11 Dose: Not Given Documented by: Doxycycline Hyclate 100 mg/ (Sodium Chloride) 100 mls @ 100 mls/hr IV Q12H [facility] Last Admin: 02/28/20 21:57 Dose: 100 mls/hr Documented by: Ibuprofen (Motrin) 600 mg PO Q6H PRN PRN Reason: Pain/Fever Ketorolac Tromethamine (Toradol) 15 mg IVPUSH Q6H PRN PRN Reason: Pain (moderate 4-6) Stop: 03/03/20 10:27 Lorazepam (Ativan) 1 mg IV Q6H PRN PRN Reason: Nausea/Vomiting Melatonin (Melatonin) 6 mg PO BEDTIME PRN PRN Reason: Sleep Last Admin: 02/29/20 02:10 Dose: 6 mg Documented by: Morphine Sulfate (Morphine) 2 mg IVPUSH Q2H PRN PRN Reason: Pain (severe 7-10) Biotin (Biotin) 10, (000 McgPom) 0 mcg PO DAILY [facility] Last Admin: 02/29/20 08:11 Dose: Not Given Documented by: Venetoclax ( Venclexta) 100 Mg Pom 0 mg PO DAILY [facility] Last Admin: 02/29/20 08:12 Dose: Not Given Documented by: Ondansetron HCl (Zofran Odt) 4 mg PO Q6H PRN PRN Reason: Nausea able to take PO Last Admin: 02/29/20 08:17 Dose: 4 mg Documented by: Ondansetron HCl (Zofran) 4 mg IV Q4H PRN PRN Reason: Nausea/Vomiting Last Admin: 02/27/20 13:15 Dose: 4 mg Documented by: Oxycodone HCl (Oxycodone) 5 mg PO Q4H PRN PRN Reason: Pain (moderate 4-6) Pantoprazole Sodium (Protonix) 40 mg PO DAILY@0730 [facility] Last Admin: 02/29/20 08:13 Dose: 40 mg Documented by: Potassium Chloride (Klor-Con M20) 40 meq PO BID [facility] Last Admin: 02/29/20 08:13 Dose: 40 meq Documented by: Discontinued Medications Sodium Chloride (Normal Saline) 1,000 mls @ 125 mls/hr IV ASDIRECTED [facility] Last Admin: 02/28/20 01:10 Dose: 125 mls/hr Documented by: Ceftriaxone Sodium 1 gm/ (Sodium Chloride) 50 mls @ 100 mls/hr IV Q24H [facility] Last Admin: 02/27/20 01:28 Dose: 100 mls/hr Documented by: Ceftriaxone Sodium 1 gm/ (Sodium Chloride) 50 mls @ 100 mls/hr IV Q24H [facility] Last Admin: 02/27/20 20:54 Dose: 100 mls/hr Documented by: Ketorolac Tromethamine (Toradol) 30 mg IVPUSH Q6H PRN PRN Reason: Pain (moderate 4-6) Melatonin (Melatonin) 6 mg PO BEDTIME [facility]
[2020-02-29] MEDS: Doxycycline 100 MG in Sodium Chloride 0.9% 100 ML IV SCH (11:00)
[2020-02-29] MEDS ORDERED: Doxycycline 100 MG Cap PO ONE (11:30)
== END 2020-02-29 11:40 | disposition home or self-care (01) | DRG 868 ==
LOC: JP.ED 22:12 → JP.MS 23:38
PROVIDERS: ADMIT Internal Medicine; ATTEND Internal Medicine
DX: A77.49 Other ehrlichiosis (principal); R50.9 Fever, unspecified; C91.10 Chronic lymphocytic leukemia of B-cell type not having achieved remission; E78.00 Pure hypercholesterolemia, unspecified; Z87.01 Personal history of pneumonia (recurrent); M85.80 Other specified disorders of bone density and structure, unspecified site; Z90.710 Acquired absence of both cervix and uterus; D84.9 Immunodeficiency, unspecified; Z85.72 Personal history of non-Hodgkin lymphomas; Z79.899 Other long term (current) drug therapy
CPT/HCPCS: 36415; 80053; 82150; 83690; 83735; 85025; 99285 ×2; J7030; 80048; 81001; 85027; A9270-GY; J0696; J2405; J3490; J7050

== ENCOUNTER 2020-06-29 11:31 | Emergency (ER) | payer MEDICARE, OTHER ==
--- NOTE | 2020-06-29 12:45 | EDM.PDOC ---
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 Today she did 30 minutes of aerobics, cool down and then two series of pilates. She walked upstairs to the bathroom and felt her heart pound, race and like she was going to faint. She did not fall of suffer LOC. she reports in the past two months she has had two episodes after exercising with her heart racing but they went away after a few minutes. Upon arrival to the emergency room she is asymptomatic. She denies fever, chills, nausea, vomiting, diarrhea, cough, chest pain, SOB or other concens. Primary provider Shahbaz Burgos TOURIST ADVISER, she power in [place] and usually goes around [facility]. - Related Data Allergies Allergy/AdvReac Type Severity Reaction Status Date / Time No Known Allergies Allergy Verified 02/26/20 22:20 Home Meds: Home Meds Acyclovir [Zovirax] 200 mg PO DAILY 06/30/17 [History] Biotin 10,000 mcg PO DAILY 06/30/17 [History] Estradiol 1 mg PO DAILY 06/30/17 [History] Fexofenadine [Anne-Marie] 180 mg PO ASDIRECTED PRN 06/30/17 [History] Ondansetron [Zofran ODT] 4 mg PO Q6H PRN #20 tab.dis 02/29/20 [Rx] Past Medical History HEENT History: Reports: None Cardiovascular History: Reports: High Cholesterol Respiratory History: Reports: Pneumonia, Recurrent Gastrointestinal History: Reports: None Genitourinary History: Reports: None 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: Musculoskeletal History: Reports: Arthritis, Other (See Below) Other Musculoskeletal History: osteopenia Hematologic History: Reports: Other (See Below) Other Hematologic History: CLL/leukemia Immunologic History: Reports: Immunosuppression Oncologic (Cancer) History: Reports: Leukemia, Lymphoma, Other (See Below) Other Oncologic History: CLL 2013 - Infectious Disease History Infectious Disease History: Reports: Chicken Pox - Past Surgical History HEENT Surgical History: Reports: LASIK, Tonsillectomy Cardiovascular Surgical History: Reports: None Respiratory Surgical History: Reports: None GI Surgical History: Reports: Colonoscopy Female Surgical History: Reports: Hysterectomy, Salpingo-Oophorectomy Musculoskeletal Surgical History: Reports: None Dermatological Surgical History: Reports: None Social & Family History - Tobacco Use Tobacco Use Status *Q: Never Tobacco User - Caffeine Use Caffeine Use: Reports: Coffee - Living Situation & Occupation Living situation: Reports: Occupation: Retired (lives with in [place], [place]. Has 3 adult children and many Grandchildren.) ED ROS GENERAL - Review of Systems Review Of Systems: See Below Constitutional: Reports: No Symptoms HEENT: Reports: No Symptoms Respiratory: Reports: No Symptoms Cardiovascular: Reports: Lightheadedness, Palpitations, Other (heart racing) Endocrine: Reports: No Symptoms GI/Abdominal: Reports: No Symptoms : Reports: No Symptoms Musculoskeletal: Reports: No Symptoms Skin: Reports: No Symptoms Neurological: Reports: No Symptoms Psychiatric: Reports: No Symptoms Hematologic/Lymphatic: Reports: No Symptoms Immunologic: Reports: No Symptoms ED EXAM, GENERAL - Physical Exam Exam: See Below Exam Limited By: No Limitations General Appearance: Alert, WD/WN, No Apparent Distress Eye Exam: Bilateral Eye: Normal Inspection, PERRL Ears: Normal External Exam, Normal Canal, Hearing Grossly Normal, Normal TMs Throat/Mouth: Normal Inspection, Normal Lips, Normal Gums, Normal Oropharynx, Normal Voice, No Airway Compromise Head: Atraumatic, Normocephalic Neck: Normal Inspection, Supple, Non-Tender, Full Range of Motion. No: Lymphadenopathy (R), Lymphadenopathy (L) Respiratory/Chest: No Respiratory Distress, Lungs Clear, Normal Breath Sounds, No Accessory Muscle Use, Chest Non-Tender. No: Crackles, Rales, Rhonchi, Wheezing, Stridor, Accessory Muscle Use, Retractions, Splinting Cardiovascular: Normal Peripheral Pulses, Regular Rate, Rhythm, No Edema, No Gallop, No JVD, No Murmur, No Rub. No: Diastolic Murmur, Systolic Murmur Peripheral Pulses: 3+: Radial (L), Radial (R), Dorsalis Pedis (L), Dorsalis Pedis (R) GI/Abdominal: Normal Bowel Sounds, Soft, Non-Tender, No Organomegaly, No Distention, No Abnormal Bruit, No Mass Back Exam: Normal Inspection, Full Range of Motion. No: CVA Tenderness (R), CVA Tenderness (L) Extremities: Normal Inspection, Normal Range of Motion, Non-Tender, No Pedal Edema, Normal Capillary Refill Neurological: Alert, Normal Cognition, Normal Gait, Normal Reflexes, No Motor/Sensory Deficits Psychiatric: Normal Affect, Normal Mood Skin Exam: Warm, Dry, Intact, Normal Color, No Rash Lymphatic: No Adenopathy #1 Interpretation EKG Date: 06/29/20 Time: 12:31 Rhythm: NSR [place]: LAD-Left [place] Deviation P-Wave: Present QRS: Normal ST-T: Normal QT: Normal Comparison: NA - No Prior EKG Course - Vital Signs Last Recorded V/S: Last Vital Signs Temp 36 C L 06/29/20 12:13 Pulse 72 06/29/20 12:13 Resp 13 06/29/20 12:13 BP 119/56 L 06/29/20 12:13 Pulse Ox 98 06/29/20 12:13 - Orders/Labs/Meds Orders: Active Orders 24 hr Category Date Time Status Chest 1V Frontal [CR] Stat Exams 06/29/20 12:40 Taken EKG 12 Lead [EK] Routine Ther 06/29/20 12:21 Ordered Labs: Laboratory Tests 06/29/20 06/29/20 06/29/20 Range/Units 12:32 12:32 12:32 WBC 3.6 L (4.5-11.0) K/uL RBC 3.70 (3.30-5.50) M/uL Hgb 12.0 (12.0-15.0) g/dL Hct 36.9 (36.0-48.0) % MCV 100 H (80-98) fL MCH 32 H (27-31) pg MCHC 33 (32-36) % Plt Count 205 (150-400) K/uL Neut % (Auto) 68 H (36-66) % Lymph % (Auto) 17 L (24-44) % [place] % (Auto) 14 H (2-6) % Eos % (Auto) 0 L (2-4) % Baso % (Auto) 0 (0-1) % Sodium 139 L (140-148) mmol/L Potassium 4.3 (3.6-5.2) mmol/L Chloride 105 (100-108) mmol/L Carbon Dioxide 28 (21-32) mmol/L Anion Gap 10.3 (5.0-14.0) mmol/L BUN 20 H D (7-18) mg/dL Creatinine 1.1 H (0.6-1.0) mg/dL Est Cr Clr Drug Dosing 34.89 mL/min Estimated GFR (MDRD) 48 L (>60) Glucose 92 (74-106) mg/dL Calcium 8.6 (8.5-10.1) mg/dL Troponin I < 0.017 (0.000-0.056) ng/mL TSH, Ultra Sensitive 2.535 (0.358-3.740) uIU/mL Patient lab work reviewed, no acute findings, decreased renal function noted, leukopenia however she is currently taking a chemotherapy agent chronically. Troponin, TSH normal. Patient case, labs and assessment reviewed with Officer, he is in agreement with plan. Patient and her are in agreement with plan. Bev will be discharged to home with close follow up of her primary and need for cardiology referral. She is advised to avoid strenuous activity and to significantly reduce her exercise routine to prevent recurrence. - Radiology Interpretation Free Text/Narrative:: chest x-ray reviewed, wet read, no acute findings. Image compared to most recent x-ray with no changes. Radiologist read pending. Departure - Departure Time of Disposition: 13:42 Disposition: Home, Self-Care 01 Condition: Good Clinical Impression: Rapid palpitations Instructions: Palpitations, [id number] Referrals: Shahbaz Burgos NP [Primary Care Provider] - Forms: ED Department Discharge Additional Instructions: You have been evaluated and treated for rapid palpitations with precipitating factor of exercise involving aerobic work out and pilates. Heart rate, vital signs, troponin, TSH normal while in the emergency room. Noted decline in renal function which can be chronic due to CLL. It is important to follow up with primary in 3 t0 7 days for recheck for cardiology followup, continued work up that could include holter monitor, ziopatch, implantable cardiac monitoring or cardiac stress test. Decrease physical activity to prevent recurrence. Push plenty of water to stay hydrated. Take current medications per routine. Return for any worsening, issues or concerns. Follow up with primary and cardiology as directed. Sepsis Event Note (ED) - Evaluation Sepsis Screening Result: No Definite Risk - Focused Exam Vital Signs: Vital Signs Temp Pulse Resp BP Pulse Ox 06/29/20 12:13 36 C L 72 13 119/56 L 98 06/29/20 12:12 36 C L 72 13 119/56 L 98 - My Orders Last 24 Hours: My Active Orders 06/29/20 12:21 EKG 12 Lead [EK] Routine 06/29/20 12:40 Chest 1V Frontal [CR] Stat - Assessment/Plan Last 24 Hours: My Active Orders 06/29/20 12:21 EKG 12 Lead [EK] Routine 06/29/20 12:40 Chest 1V Frontal [CR] Stat Assessment:: Rapid palpitations with precipitating factor of exercise involving aerobic work out and pilates. Episodes x 3 Plan: Patient evaluated and treated for rapid palpitations with precipitating factor of exercise involving aerobic work out and pilates. Heart rate, vital signs, troponin, TSH normal while in the emergency room. Noted decline in renal function which can be chronic due to CLL. It is important to follow up with primary in 3 t0 7 days for recheck for cardiology followup, continued work up that could include holter monitor, ziopatch, implantable cardiac monitoring or cardiac stress test. Decrease physical activity to prevent recurrence. Push plenty of water to stay hydrated. Take current medications per routine. Return for any worsening, issues or concerns. Follow up with primary and cardiology as directed.
--- NOTE | 2020-06-30 10:04 | CR ---
CHEST: Portable 06/29/2020 CLINICAL HISTORY:Tachycardia COMPARISON:February 2020 FINDINGS: The heart size, pulmonary vascularity and hilar structures are normal. No infiltrate effusion or pneumothorax is seen. There are atherosclerotic changes in the aorta. IMPRESSION: No acute cardiopulmonary process.
== END 2020-06-29 13:58 | disposition home or self-care (01) ==
LOC: JP.ED 11:31
DX: R00.2 Palpitations (principal); R42 Dizziness and giddiness; Z90.710 Acquired absence of both cervix and uterus
CPT/HCPCS: 36415; 71045; 71045-26; 80048; 84443; 84484; 85025; 93005; 93010; 99285-25

== ENCOUNTER 2021-06-04 18:05 | Emergency (ER) | payer MEDICARE, OTHER ==
--- NOTE | 2021-06-04 19:55 | EDM.PDOC ---
ED HPI GENERAL MEDICAL PROBLEM - General Chief Complaint: Fever Stated Complaint: WEAK,FEVER, AND ON CHEMO Time Seen by Provider: 06/04/21 18:31 Source of Information: Reports: Patient History Limitations: Reports: No Limitations - History of Present Illness INITIAL COMMENTS - FREE TEXT/NARRATIVE: Bev is an 81-year-old female presenting to the ED with concerns of possibly having COVID-19. 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 The patient has been dealing with seasonal allergies since November and has a raw and raspy throat because of this. She has a history significant for chronic lymphocytic leukemia and has had both doses of the Inventalator Covid vaccine as well as a booster in April of this year. She is currently on 2 oral chemotherapy agents for her CLL. also has had flulike symptoms. Temperature at home was 100.7 F, however here was 99.1 F. - Related Data Allergies Allergy/AdvReac Type Severity Reaction Status Date / Time No Known Allergies Allergy Verified 06/04/21 18:55 Home Meds: Home Meds Acyclovir [Zovirax] 200 mg PO BID 06/30/17 [History] Biotin 10,000 mcg PO DAILY 06/30/17 [History] Estradiol 1 mg PO DAILY 06/30/17 [History] Fexofenadine [Anne-Marie] 180 mg PO ASDIRECTED PRN 06/30/17 [History] Ondansetron [Zofran ODT] 4 mg PO Q6H PRN #20 tab.dis 02/29/20 [Rx] Acetaminophen [Acetaminophen Extra Strength] 1,000 mg PO Q6H PRN 07/01/20 [History] Venetoclax [Venclexta] 200 mg PO DAILY 07/01/20 [History] Ibrutinib [Imbruvica] 420 mg PO DAILY 06/04/21 [History] Past Medical History HEENT History: Reports: None Cardiovascular History: Reports: High Cholesterol Respiratory History: Reports: Pneumonia, Recurrent Gastrointestinal History: Reports: None Genitourinary History: Reports: None 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: Musculoskeletal History: Reports: Arthritis, Other (See Below) Other Musculoskeletal History: osteopenia Hematologic History: Reports: Other (See Below) Other Hematologic History: CLL/leukemia Immunologic History: Reports: Immunosuppression Oncologic (Cancer) History: Reports: Leukemia, Lymphoma, Other (See Below) Other Oncologic History: CLL 2013 - Infectious Disease History Infectious Disease History: Reports: Chicken Pox - Past Surgical History HEENT Surgical History: Reports: LASIK, Tonsillectomy Cardiovascular Surgical History: Reports: None Respiratory Surgical History: Reports: None GI Surgical History: Reports: Colonoscopy Female Surgical History: Reports: Hysterectomy, Salpingo-Oophorectomy Musculoskeletal Surgical History: Reports: None Dermatological Surgical History: Reports: None Social & Family History - Tobacco Use Tobacco Use Status *Q: Never Tobacco User - Caffeine Use Caffeine Use: Reports: Coffee - Living Situation & Occupation Living situation: Reports: Occupation: Retired (lives with in [place], [place]. Has 3 adult children and many Grandchildren.) ED ROS GENERAL - Review of Systems Review Of Systems: See Below Constitutional: Reports: Fever, Chills, Weakness HEENT: Reports: Throat Pain Respiratory: Reports: Shortness of Breath, Cough, Other (Chest tightness) Cardiovascular: Reports: No Symptoms Endocrine: Reports: No Symptoms GI/Abdominal: Reports: No Symptoms : Reports: No Symptoms Musculoskeletal: Reports: No Symptoms Skin: Reports: No Symptoms Neurological: Reports: Headache Psychiatric: Reports: No Symptoms Hematologic/Lymphatic: Reports: No Symptoms Immunologic: Reports: No Symptoms ED EXAM, GENERAL - Physical Exam Exam: See Below Exam Limited By: No Limitations General Appearance: Alert, No Apparent Distress, Anxious Eye Exam: Bilateral Eye: EOMI, PERRL Nose: Nasal Swelling, Clear Rhinorrhea Throat/Mouth: Normal Inspection, Normal Lips, Normal Oropharynx, Normal Voice, No Airway Compromise Head: Atraumatic, Normocephalic Neck: Normal Inspection, Supple, Non-Tender, Full Range of Motion. No: Lymphadenopathy (R), Lymphadenopathy (L) Respiratory/Chest: No Respiratory Distress, Lungs Clear, Normal Breath Sounds Cardiovascular: Normal Peripheral Pulses, Regular Rate, Rhythm, No Murmur Peripheral Pulses: 2+: Radial (L), Radial (R) GI/Abdominal: Normal Bowel Sounds, Soft, Non-Tender Back Exam: Normal Inspection, Full Range of Motion Extremities: Normal Inspection Neurological: Alert, Oriented, Normal Cognition, No Motor/Sensory Deficits Psychiatric: Normal Affect, Anxious Skin Exam: Warm, Dry, Intact, Normal Color Course - Vital Signs Last Recorded V/S: Last Vital Signs Temp 37.3 C 09/23/21 18:37 Pulse 82 06/04/21 18:37 Resp 16 06/04/21 18:37 BP 105/34 L 06/04/21 18:37 Pulse Ox 96 06/04/21 18:37 - Orders/Labs/Meds Orders: Active Orders 24 hr Category Date Time Status Chest 1V Frontal [CR] Stat Exams 06/04/21 18:42 Taken Labs: Laboratory Tests 06/04/21 06/04/21 06/04/21 Range/Units 18:42 18:42 18:49 WBC 5.2 (4.5-11.0) K/uL RBC 3.64 (3.30-5.50) M/uL Hgb 11.5 L (12.0-15.0) g/dL Hct 35.4 L (36.0-48.0) % MCV 97 (80-98) fL MCH 32 H (27-31) pg MCHC 33 (32-36) % Plt Count 237 (150-400) K/uL Neut % (Auto) 48.6 (36-66) % Lymph % (Auto) 16.3 L (24-44) % [place] % (Auto) 33.9 H (2-6) % Eos % (Auto) 0.8 L (2-4) % Baso % (Auto) 0.4 (0-1) % Sodium 137 L (140-148) mmol/L Potassium 3.9 (3.6-5.2) mmol/L Chloride 101 (100-108) mmol/L Carbon Dioxide 27 (21-32) mmol/L Anion Gap 12.9 (5.0-14.0) mmol/L BUN 16 (7-18) mg/dL Creatinine 1.0 (0.6-1.0) mg/dL Est Cr Clr Drug Dosing 36.76 mL/min Estimated GFR (MDRD) 53 L (>60) Glucose 84 (74-106) mg/dL Calcium 8.3 L (8.5-10.1) mg/dL C-Reactive Protein 0.48 H (0.0-0.3) mg/dL Urine Color (YELLOW) Urine Appearance (CLEAR) Urine pH (5.0-8.0) Ur Specific [place] (1.008-1.030) Urine Protein (NEGATIVE) mg/dL Urine Glucose (UA) (NEGATIVE) mg/dL Urine Ketones (NEGATIVE) mg/dL Urine Occult Blood (NEGATIVE) Urine Nitrite (NEGATIVE) Urine Bilirubin (NEGATIVE) Urine Urobilinogen (0.2-1.0) EU/dL Ur Leukocyte Esterase (NEGATIVE) Urine RBC (0-5) Urine WBC (0-5) Ur Epithelial Cells Amorphous Sediment Urine Bacteria Urine Mucus SARS-CoV-2 RNA (NEREYDA) Negative (NEGATIVE) 06/04/21 Range/Units 19:08 WBC (4.5-11.0) K/uL RBC (3.30-5.50) M/uL Hgb (12.0-15.0) g/dL Hct (36.0-48.0) % MCV (80-98) fL MCH (27-31) pg MCHC (32-36) % Plt Count (150-400) K/uL Neut % (Auto) (36-66) % Lymph % (Auto) (24-44) % [place] % (Auto) (2-6) % Eos % (Auto) (2-4) % Baso % (Auto) (0-1) % Sodium (140-148) mmol/L Potassium (3.6-5.2) mmol/L Chloride (100-108) mmol/L Carbon Dioxide (21-32) mmol/L Anion Gap (5.0-14.0) mmol/L BUN (7-18) mg/dL Creatinine (0.6-1.0) mg/dL Est Cr Clr Drug Dosing mL/min Estimated GFR (MDRD) (>60) Glucose (74-106) mg/dL Calcium (8.5-10.1) mg/dL C-Reactive Protein (0.0-0.3) mg/dL Urine Color Yellow (YELLOW) Urine Appearance Clear (CLEAR) Urine pH 8.5 H (5.0-8.0) Ur Specific [place] 1.020 (1.008-1.030) Urine Protein Negative (NEGATIVE) mg/dL Urine Glucose (UA) Negative (NEGATIVE) mg/dL Urine Ketones Negative (NEGATIVE) mg/dL Urine Occult Blood Moderate H (NEGATIVE) Urine Nitrite Negative (NEGATIVE) Urine Bilirubin Negative (NEGATIVE) Urine Urobilinogen 0.2 (0.2-1.0) EU/dL Ur Leukocyte Esterase Negative (NEGATIVE) Urine RBC 30-40 H (0-5) Urine WBC 0-5 (0-5) Ur Epithelial Cells Not seen Amorphous Sediment Not seen Urine Bacteria Rare Urine Mucus Not seen SARS-CoV-2 RNA (NEREYDA) (NEGATIVE) - Radiology Interpretation Free Text/Narrative:: Reviewed the 1 view chest x-ray which was unremarkable for any acute findings. - Re-Assessments/Exams Free Text/Narrative Re-Assessment/Exam: 06/04/21 19:56 I reviewed the patient's labs showing a normal CBC with a leukocyte count of 5.2, hemoglobin of 11.5, hematocrit of 35.4, and platelet count of 3 237,000. The basic metabolic profile is unremarkable. CRP is slightly elevated at 0.48 and urinalysis shows 30-40 red blood cells but no white blood cells. COVID-19 test is negative. Is likely the patient has a viral syndrome causing her low-grade fever but does not have Covid. It is unlikely that she has influenza at this time either. We discussed management including fever control with Tylenol, pushing fluids and rest. I reassured her that her Covid test was negative. Indications return to the ED were discussed and she was discharged in satisfactory condition. Departure - Departure Time of Disposition: 19:57 Disposition: Home, Self-Care 01 Clinical Impression: Acute viral syndrome - Discharge Information Instructions: Viral Illness, Adult Referrals: Shahbaz Burgos NP [Primary Care Provider] - Care Plan Goals: Your work-up today shows that you likely have a headache viral syndrome like the common cold. I recommend taking Tylenol or ibuprofen for your fever, pushing fluids to prevent dehydration, and encouraging rest to help with recovery. Sepsis Event Note (ED) - Focused Exam Vital Signs: Vital Signs Temp Pulse Resp BP Pulse Ox 06/04/21 18:37 37.3 C 82 16 105/34 L 96 06/04/21 18:28 37.3 C 82 16 105/34 L 96 - Problem List & Annotations (1) Acute viral syndrome SNOMED Code(s): 303182961 Code(s): B34.9 - VIRAL INFECTION, UNSPECIFIED Status: Acute Priority: Medium Current Visit: Yes - Problem List Review Problem List Initiated/Reviewed/Updated: Yes - My Orders Last 24 Hours: My Active Orders 06/04/21 18:42 Chest 1V Frontal [CR] Stat - Assessment/Plan Last 24 Hours: My Active Orders 06/04/21 18:42 Chest 1V Frontal [CR] Stat
--- NOTE | 2021-06-05 09:28 | CR ---
CHEST: Portable and 2321 at 7:09 PM CLINICAL HISTORY:Chest tightness, cough COMPARISON:2020 FINDINGS: The heart size, pulmonary vascularity and hilar structures are normal. No infiltrate effusion or pneumothorax is seen. There is mild hyperinflation. IMPRESSION: No acute cardiopulmonary process.
== END 2021-06-04 20:12 | disposition home or self-care (01) ==
LOC: JP.ED 18:05
DX: B34.9 Viral infection, unspecified (principal); Z20.822 Contact with and (suspected) exposure to COVID-19
CPT/HCPCS: 36415; 71045; 80048; 81001; 85025; 86140; 99284; U0002

== ENCOUNTER 2021-06-11 10:38 | Inpatient (IN) | payer MEDICARE, OTHER ==
[2021-06-11] MEDS ORDERED: Ondansetron 4 MG/2 ML SDV IVPUSH ONE (11:26)
[2021-06-11] MEDS ORDERED: Sodium Chloride 0.9% 10 ML Syringe FLUSH PRN ×2 (11:26→18:51)
--- NOTE | 2021-06-11 11:30 | EDM.PDOC ---
ED HPI GENERAL MEDICAL PROBLEM - General Chief Complaint: General Stated Complaint: CHEST PAIN, CONGESTION,WEAK-NEG FOR COVID 05/28 Time Seen by Provider: 06/11/21 11:15 Source of Information: Reports: Patient, Old Records, RN History Limitations: Reports: No Limitations - History of Present Illness INITIAL COMMENTS - FREE TEXT/NARRATIVE: 81 yo female here with a continued illness since she was last seen here on 06/04/21. She describes nausea without vomiting, diarrhea that just recently seems to have resolved, malaise, anorexia and low grade fevers. Has a pHx of CLL. Has not been in to see her primary at any point since she became ill. When she was last here here work up was pretty negative except for microscopic hematuria. She has had intermittent R flank pain ongoing, not every day. Onset: Gradual Duration: Day(s): Location: Reports: Generalized Quality: Reports: Other (pain is not a main concern) Severity: Moderate (weakness) Improves with: Reports: None Worsens with: Reports: Other (? time) Context: Reports: Other (see HPI) Associated Symptoms: Reports: Cough (occasional), Fever/Chills (intermittent), Nausea/Vomiting (no vomiting). Denies: Chest Pain, Rash, Shortness of Breath, Weakness (generalized) Treatments DIRECTOR DIVERSITY: Reports: Other (see below) (none) Right Flank Pain Score (Numeric/FACES): 1 - Related Data Allergies Allergy/AdvReac Type Severity Reaction Status Date / Time No Known Allergies Allergy Verified 06/11/21 10:45 Home Meds: Home Meds Acyclovir [Zovirax] 200 mg PO BID 06/30/17 [History] Biotin 10,000 mcg PO DAILY 06/30/17 [History] Estradiol 1 mg PO DAILY 06/30/17 [History] Fexofenadine [Anne-Marie] 180 mg PO ASDIRECTED PRN 06/30/17 [History] Ondansetron [Zofran ODT] 4 mg PO Q6H PRN #20 tab.dis 02/29/20 [Rx] Acetaminophen [Acetaminophen Extra Strength] 1,000 mg PO Q6H PRN 07/01/20 [History] Venetoclax [Venclexta] 200 mg PO DAILY 07/01/20 [History] Ibrutinib [Imbruvica] 420 mg PO DAILY 06/04/21 [History] Ondansetron [Zofran ODT] 4 mg PO Q6H PRN #12 tab.dis 06/11/21 [Rx] Past Medical History HEENT History: Reports: None Cardiovascular History: Reports: High Cholesterol Respiratory History: Reports: Pneumonia, Recurrent Gastrointestinal History: Reports: None Genitourinary History: Reports: None 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: Musculoskeletal History: Reports: Arthritis, Other (See Below) Other Musculoskeletal History: osteopenia Hematologic History: Reports: Other (See Below) Other Hematologic History: CLL/leukemia Immunologic History: Reports: Immunosuppression Oncologic (Cancer) History: Reports: Leukemia, Lymphoma, Other (See Below) Other Oncologic History: CLL 2013 - Infectious Disease History Infectious Disease History: Reports: Chicken Pox - Past Surgical History HEENT Surgical History: Reports: LASIK, Tonsillectomy Cardiovascular Surgical History: Reports: None Respiratory Surgical History: Reports: None GI Surgical History: Reports: Colonoscopy Female Surgical History: Reports: Hysterectomy, Salpingo-Oophorectomy Musculoskeletal Surgical History: Reports: None Dermatological Surgical History: Reports: None Social & Family History - Tobacco Use Tobacco Use Status *Q: Never Tobacco User - Caffeine Use Caffeine Use: Reports: Coffee - Recreational Drug Use Recreational Drug Use: No - Living Situation & Occupation Living situation: Reports: Occupation: Retired (lives with in [place], [place]. Has 3 adult children and many Grandchildren.) ED ROS GENERAL - Review of Systems Review Of Systems: See Below Constitutional: Reports: Fever, Chills, Malaise, Weakness, Decreased Appetite HEENT: Reports: Other (dry mouth) Respiratory: Reports: No Symptoms Cardiovascular: Reports: No Symptoms Endocrine: Reports: No Symptoms GI/Abdominal: Reports: Diarrhea, Nausea. Denies: Abdominal Pain, Black Stool, Bloody Stool, Distension, Flatus, Hematemesis, Hematochezia, Melena, Vomiting : Reports: Flank Pain (R side) Musculoskeletal: Reports: No Symptoms Skin: Reports: No Symptoms Neurological: Reports: No Symptoms Psychiatric: Reports: No Symptoms ED EXAM, GENERAL - Physical Exam Exam: See Below Exam Limited By: No Limitations General Appearance: Alert, WD/WN, No Apparent Distress Eye Exam: Bilateral Eye: Normal Inspection Ears: Normal External Exam, Normal Canal, Hearing Grossly Normal, Normal TMs Ear Exam: Bilateral Ear: Auricle Normal, Canal Normal, TM normal Nose: Normal Inspection, No Blood Throat/Mouth: Normal Lips, Normal Oropharynx, Normal Voice, No Airway Comprom ise, Other (dry oral mucosa) Head: Atraumatic, Normocephalic Neck: Normal Inspection Respiratory/Chest: No Respiratory Distress, Lungs Clear, Normal Breath Sounds, No Accessory Muscle Use Cardiovascular: Regular Rate, Rhythm, No Edema GI/Abdominal: Normal Bowel Sounds, Soft, Non-Tender, No Distention. No: Distended, Tender Back Exam: Normal Inspection. No: CVA Tenderness (R), CVA Tenderness (L) Extremities: Normal Inspection, Normal Range of Motion, Non-Tender, No Pedal Edema Neurological: Alert, Oriented, CN II-XII Intact, Normal Cognition, No Motor/Sensory Deficits. No: Confused Psychiatric: Normal Affect, Normal Mood Skin Exam: Warm, Dry, Intact, Normal Color, No Rash Course - Vital Signs Text/Narrative:: Case discussed with Dr. Flores @ 1501 Last Recorded V/S: Last Vital Signs Temp 36.1 C 06/11/21 11:06 Pulse 88 06/11/21 15:04 Resp 18 06/11/21 15:04 BP 103/44 L 06/11/21 13:39 Pulse Ox 94 L 06/11/21 15:04 - Orders/Labs/Meds Orders: Active Orders 24 hr Category Date Time Status Patient Status Manage Transfer [TRANSFER] Routine ADT 06/11/21 16:51 Active Vital Signs [RC] Q15M Care 06/11/21 16:58 Active CULTURE BLOOD [BC] Stat Lab 06/11/21 15:30 Received CULTURE BLOOD [BC] Stat Lab 06/11/21 15:45 Received CULTURE URINE [RM] Stat Lab 06/11/21 14:36 Received Casirivimab/Imdevimab [Regen-Cov 600-600 mg/10Ml (Eua)] Med 06/11/21 20:00 Act nevaeh 10 ml Sodium Chloride 0.9% [Normal Saline] 150 ml IV ONETIME EPINEPHrine [Adrenalin] Med 06/11/21 16:58 Active 0.3 mg IM ASDIRECTED PRN Famotidine [Pepcid] Med 06/11/21 16:58 Active 20 mg IVPUSH ASDIRECTED PRN Sodium Chloride 0.9% [Saline Flush] Med 06/11/21 11:26 Active 10 ml FLUSH ASDIRECTED PRN Sodium Chloride 0.9% [Saline Flush] Med 06/11/21 20:00 Active 30 ml FLUSH ASDIRECTED diphenhydrAMINE [Benadryl] Med 06/11/21 16:58 Active 50 mg IVPUSH ONETIME PRN methylPREDNISolone Sod Succ [Solu-MEDROL] Med 06/11/21 16:58 Active 125 mg IVPUSH ASDIRECTED PRN Blood Culture x2 Reflex Set [OM.PC] Urgent Oth 06/11/21 15:16 Ordered Saline Lock Insert [OM.PC] Routine Oth 06/11/21 11:26 Ordered Resuscitation Status Routine Resus Stat 06/11/21 15:22 Ordered Medication Orders Diphenhydramine HCl (Diphenhydramine 50 Mg/Ml Sdv) 50 mg IVPUSH ONETIME PRN PRN Reason: hypersensitivity reaction Epinephrine HCl (Epinephrine 1 Mg/Ml Sdv) 0.3 mg IM ASDIRECTED PRN PRN Reason: hypersensitivity reaction Famotidine (Famotidine 20 Mg/2 Ml Sdv) 20 mg IVPUSH ASDIRECTED PRN PRN Reason: hypersensitivity reaction CASIRIVIMAB/IMDEVIMAB 10 ml/ (Sodium Chloride) 160 mls @ 310 mls/hr IV ONETIME ONE Stop: 06/11/21 20:30 Methylprednisolone Sodium Succinate (Methylprednisolone Sodium Succinate 125 Mg/2 Ml Sdv) 125 mg IVPUSH ASDIRECTED PRN PRN Reason: hypersensitivity reaction Sodium Chloride (Sodium Chloride 0.9% 10 Ml Syringe) 10 ml FLUSH ASDIRECTED PRN PRN Reason: Keep Vein Open Last Admin: 06/11/21 11:50 Dose: 10 ml Documented by: YOLI Sodium Chloride (Sodium Chloride 0.9% 10 Ml Syringe) 30 ml FLUSH ASDIRECTED DELORIS Stop: 06/11/21 22:00 Labs: Laboratory Tests 06/11/21 06/11/21 06/11/21 Range/Units 11:26 11:39 14:05 WBC 4.5 (4.5-11.0) K/uL RBC 3.75 (3.30-5.50) M/uL Hgb 11.5 L (12.0-15.0) g/dL Hct 35.4 L (36.0-48.0) % MCV 94 (80-98) fL MCH 31 (27-31) pg MCHC 33 (32-36) % Plt Count 213 (150-400) K/uL Sodium 139 L (140-148) mmol/L Potassium 3.7 (3.6-5.2) mmol/L Chloride 101 (100-108) mmol/L Carbon Dioxide 26 (21-32) mmol/L Anion Gap 15.7 H (5.0-14.0) mmol/L BUN 14 (7-18) mg/dL Creatinine 1.1 H (0.6-1.0) mg/dL Est Cr Clr Drug Dosing 31.84 mL/min Estimated GFR (MDRD) 48 L (>60) Glucose 102 (74-106) mg/dL Lactic Acid (0.4-2.0) mmol/L Calcium 8.1 L (8.5-10.1) mg/dL Total Bilirubin 0.4 D (0.2-1.0) mg/dL AST 12 L (15-37) U/L ALT 12 (12-78) U/L Alkaline Phosphatase 74 (46-116) U/L C-Reactive Protein (0.0-0.3) mg/dL Total Protein 5.7 L (6.4-8.2) g/dL Albumin 2.8 L (3.4-5.0) g/dL Globulin 2.9 (2.3-3.5) g/dL Albumin/Globulin Ratio 1.0 L (1.2-2.2) Procalcitonin ng/mL Urine Color Yellow (YELLOW) Urine Appearance Slightly cloudy A (CLEAR) Urine pH 6.5 (5.0-8.0) Ur Specific [place] 1.020 (1.008-1.030) Urine Protein 100 H (NEGATIVE) mg/dL Urine Glucose (UA) Negative (NEGATIVE) mg/dL Urine Ketones Negative (NEGATIVE) mg/dL Urine Occult Blood Moderate H (NEGATIVE) Urine Nitrite Negative (NEGATIVE) Urine Bilirubin Negative (NEGATIVE) Urine Urobilinogen 0.2 (0.2-1.0) EU/dL Ur Leukocyte Esterase Trace H (NEGATIVE) Urine RBC 10-20 H (0-5) Urine WBC 5-10 H (0-5) Ur Epithelial Cells Few Amorphous Sediment Rare Urine Bacteria Rare Urine Mucus Not seen SARS-CoV-2 RNA (NEREYDA) (NEGATIVE) 06/11/21 06/11/21 06/11/21 Range/Units 15:01 15:17 15:20 WBC (4.5-11.0) K/uL RBC (3.30-5.50) M/uL Hgb (12.0-15.0) g/dL Hct (36.0-48.0) % MCV (80-98) fL MCH (27-31) pg MCHC (32-36) % Plt Count (150-400) K/uL Sodium (140-148) mmol/L Potassium (3.6-5.2) mmol/L Chloride (100-108) mmol/L Carbon Dioxide (21-32) mmol/L Anion Gap (5.0-14.0) mmol/L BUN (7-18) mg/dL Creatinine (0.6-1.0) mg/dL Est Cr Clr Drug Dosing mL/min Estimated GFR (MDRD) (>60) Glucose (74-106) mg/dL Lactic Acid 0.9 (0.4-2.0) mmol/L Calcium (8.5-10.1) mg/dL Total Bilirubin (0.2-1.0) mg/dL AST (15-37) U/L ALT (12-78) U/L Alkaline Phosphatase (46-116) U/L C-Reactive Protein 4.54 H (0.0-0.3) mg/dL Total Protein (6.4-8.2) g/dL Albumin (3.4-5.0) g/dL Globulin (2.3-3.5) g/dL Albumin/Globulin Ratio (1.2-2.2) Procalcitonin ng/mL Urine Color (YELLOW) Urine Appearance (CLEAR) Urine pH (5.0-8.0) Ur Specific [place] (1.008-1.030) Urine Protein (NEGATIVE) mg/dL Urine Glucose (UA) (NEGATIVE) mg/dL Urine Ketones (NEGATIVE) mg/dL Urine Occult Blood (NEGATIVE) Urine Nitrite (NEGATIVE) Urine Bilirubin (NEGATIVE) Urine Urobilinogen (0.2-1.0) EU/dL Ur Leukocyte Esterase (NEGATIVE) Urine RBC (0-5) Urine WBC (0-5) Ur Epithelial Cells Amorphous Sediment Urine Bacteria Urine Mucus SARS-CoV-2 RNA (NEREYDA) Positive H (NEGATIVE) 06/11/21 Range/Units 15:20 WBC (4.5-11.0) K/uL RBC (3.30-5.50) M/uL Hgb (12.0-15.0) g/dL Hct (36.0-48.0) % MCV (80-98) fL MCH (27-31) pg MCHC (32-36) % Plt Count (150-400) K/uL Sodium (140-148) mmol/L Potassium (3.6-5.2) mmol/L Chloride (100-108) mmol/L Carbon Dioxide (21-32) mmol/L Anion Gap (5.0-14.0) mmol/L BUN (7-18) mg/dL Creatinine (0.6-1.0) mg/dL Est Cr Clr Drug Dosing mL/min Estimated GFR (MDRD) (>60) Glucose (74-106) mg/dL Lactic Acid (0.4-2.0) mmol/L Calcium (8.5-10.1) mg/dL Total Bilirubin (0.2-1.0) mg/dL AST (15-37) U/L ALT (12-78) U/L Alkaline Phosphatase (46-116) U/L C-Reactive Protein (0.0-0.3) mg/dL Total Protein (6.4-8.2) g/dL Albumin (3.4-5.0) g/dL Globulin (2.3-3.5) g/dL Albumin/Globulin Ratio (1.2-2.2) Procalcitonin < 0.05 ng/mL Urine Color (YELLOW) Urine Appearance (CLEAR) Urine pH (5.0-8.0) Ur Specific [place] (1.008-1.030) Urine Protein (NEGATIVE) mg/dL Urine Glucose (UA) (NEGATIVE) mg/dL Urine Ketones (NEGATIVE) mg/dL Urine Occult Blood (NEGATIVE) Urine Nitrite (NEGATIVE) Urine Bilirubin (NEGATIVE) Urine Urobilinogen (0.2-1.0) EU/dL Ur Leukocyte Esterase (NEGATIVE) Urine RBC (0-5) Urine WBC (0-5) Ur Epithelial Cells Amorphous Sediment Urine Bacteria Urine Mucus SARS-CoV-2 RNA (NEREYDA) (NEGATIVE) Meds: Medications Generic Name Dose Route Start Last Admin Trade Name Shannan PRN Reason Stop Dose Admin Diphenhydramine HCl 50 mg 06/11/21 16:58 Diphenhydramine 50 Mg/Ml Sdv IVPUSH ONETIME PRN hypersensitivity reaction Epinephrine HCl 0.3 mg 06/11/21 16:58 Epinephrine 1 Mg/Ml Sdv IM ASDIRECTED PRN hypersensitivity reaction Famotidine 20 mg 06/11/21 16:58 Famotidine 20 Mg/2 Ml Sdv IVPUSH ASDIRECTED PRN hypersensitivity reaction CASIRIVIMAB/IMDEVIMAB 10 ml/ 160 mls @ 310 mls/hr 06/11/21 20:00 Sodium Chloride IV 06/11/21 20:30 ONETIME ONE Methylprednisolone Sodium Succinate 125 mg 06/11/21 16:58 Methylprednisolone Sodium Succinate 125 Mg/2 Ml Sdv IVPUSH ASDIRECTED PRN hypersensitivity reaction Sodium Chloride 10 ml 06/11/21 11:26 06/11/21 11:50 Sodium Chloride 0.9% 10 Ml Syringe FLUSH 10 ml ASDIRECTED PRN Administration Keep Vein Open Sodium Chloride 30 ml 06/11/21 20:00 Sodium Chloride 0.9% 10 Ml Syringe FLUSH 06/11/21 22:00 ASDIRECTED DELORIS Discontinued Medications Generic Name Dose Route Start Last Admin Trade Name Shannan PRN Reason Stop Dose Admin Azithromycin 500 mg 06/11/21 15:25 06/11/21 15:45 Azithromycin 250 Mg Tab PO 06/11/21 15:26 500 mg ONETIME ONE Administration Lactated Ringer's 1,000 mls @ 1,000 mls/hr 06/11/21 12:25 06/11/21 12:35 Ringers, Lactated IV 06/11/21 13:24 1,000 mls/hr BOLUS ONE Administration Ceftriaxone Sodium 1 gm/ 50 mls @ 100 mls/hr 06/11/21 16:00 06/11/21 15:33 Sodium Chloride IV 100 mls/hr Q24H DELORIS Administration Doxycycline Hyclate 100 mg/ 100 mls @ 100 mls/hr 06/11/21 16:30 06/11/21 16:10 Sodium Chloride IV Not Given Q12H DELORIS Ceftriaxone Sodium 1 gm/ 50 mls @ 100 mls/hr 06/11/21 15:25 06/11/21 15:34 Sodium Chloride IV 06/11/21 15:54 Not Given ONETIME ONE Ondansetron HCl 4 mg 06/11/21 11:26 06/11/21 11:49 Ondansetron 4 Mg/2 Ml Sdv IVPUSH 06/11/21 11:27 4 mg ONETIME ONE Administration - Radiology Interpretation Free Text/Narrative:: CXR-bilat subtle infiltrates. Departure - Departure Time of Disposition: 19:00 Disposition: Admitted As Inpatient 67 Clinical Impression: Respiratory infection, Weakness, COVID-19 - Discharge Information *PRESCRIPTION DRUG MONITORING PROGRAM REVIEWED*: Not Applicable *COPY OF PRESCRIPTION DRUG MONITORING REPORT IN PATIENT LEO: Not Applicable Prescriptions: Ondansetron [Zofran ODT] 4 mg PO Q6H PRN #12 tab.dis PRN Reason: Nausea Referrals: PCP,None [Primary Care Provider] - Forms: ED Department Discharge Sepsis Event Note (ED) - Evaluation Sepsis Screening Result: No Definite Risk - Focused Exam Vital Signs: Vital Signs Temp Pulse Resp BP Pulse Ox 06/11/21 15:04 88 18 94 L 06/11/21 13:39 76 103/44 L 06/11/21 11:06 36.1 C 97 20 106/40 L 98 - My Orders Last 24 Hours: My Active Orders 06/11/21 11:26 Sodium Chloride 0.9% [Saline Flush] 10 ml FLUSH ASDIRECTED PRN Saline Lock Insert [OM.PC] Routine 06/11/21 14:36 CULTURE URINE [RM] Stat - Assessment/Plan Last 24 Hours: My Active Orders 06/11/21 11:26 Sodium Chloride 0.9% [Saline Flush] 10 ml FLUSH ASDIRECTED PRN Saline Lock Insert [OM.PC] Routine 06/11/21 14:36 CULTURE URINE [RM] Stat
[2021-06-11] MEDS ORDERED: Lactated Ringers 1,000 ML IV ONE (12:25)
--- NOTE | 2021-06-11 13:27 | CR ---
CHEST: 2 views CLINICAL HISTORY:Cough and weakness COMPARISON:06/04/2021 FINDINGS: There is a patchy density in the left upper lobe. There is some patchy density in the right infrahilar region which is also change from prior study This is a change since prior study. Heart size pulmonary vascularity are normal. There is some scarring in the right midlung. Impression: Small patchy density left midlung field and right infrahilar region are suspect for pneumonic infiltrates. Short-term follow-up recommended until clear
[2021-06-11] MEDS ORDERED: Azithromycin 250 MG Tab PO ONE (15:25)
[2021-06-11] MEDS ORDERED: cefTRIAXone 1 GM in Sodium Chloride 0.9% 50 ML IV ONE (15:25)
--- NOTE | 2021-06-11 15:26 | PCM.HP.2 ---
H&P History of Present Illness - General Date of Service: 06/11/21 Admit Problem/Dx: Admission Diagnosis/Problem Admission Diagnosis/Problem Weakness Source of Information: Patient, Family, Provider, RN Notes Reviewed History Limitations: Reports: No Limitations - History of Present Illness Initial Comments - Free Text/Narative: Ms. Marquez is an 81-year-old woman who was admitted through the emergency department to observation status with weakness and dehydration secondary to COVID-19 infection. She has been sick for the past week including symptoms of fever, chills, nausea, diarrhea, headache, myalgias, and cough. She was seen and evaluated in the emergency room 1 week ago with onset of symptoms and at that time tested negative for COVID-19. Over the last week he has had progression of her symptoms and has become very weak to the point where she has difficulty transferring and ambulating. 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 On evaluation in the emergency department she is not hypoxic and has no obvious respiratory compromise. Initially was felt that she may have bacterial pneumonia, but then testing for Covid 19 returned positive. C-reactive protein is elevated, pro calcitonin level is within normal range. Right Flank Pain Score (Numeric/FACES): 1 - Related Data Allergies/Adverse Reactions: Allergies Allergy/AdvReac Type Severity Reaction Status Date / Time No Known Allergies Allergy Verified 06/11/21 10:45 Home Medications: Home Meds Acyclovir [Zovirax] 200 mg PO BID 06/30/17 [History] Biotin 10,000 mcg PO DAILY 06/30/17 [History] Estradiol 1 mg PO DAILY 06/30/17 [History] Fexofenadine [Anne-Marie] 180 mg PO ASDIRECTED PRN 06/30/17 [History] Ondansetron [Zofran ODT] 4 mg PO Q6H PRN #20 tab.dis 02/29/20 [Rx] Acetaminophen [Acetaminophen Extra Strength] 1,000 mg PO Q6H PRN 07/01/20 [History] Venetoclax [Venclexta] 200 mg PO DAILY 07/01/20 [History] Ibrutinib [Imbruvica] 420 mg PO DAILY 06/04/21 [History] Ondansetron [Zofran ODT] 4 mg PO Q6H PRN #12 tab.dis 06/11/21 [Rx] Past Medical History HEENT History: Reports: None Cardiovascular History: Reports: High Cholesterol Respiratory History: Reports: Pneumonia, Recurrent Gastrointestinal History: Reports: None Genitourinary History: Reports: None [employer] History: Reports: Musculoskeletal History: Reports: Arthritis, Other (See Below) Other Musculoskeletal History: osteopenia Hematologic History: Reports: Other (See Below) Other Hematologic History: CLL/leukemia Immunologic History: Reports: Immunosuppression Oncologic (Cancer) History: Reports: Leukemia, Lymphoma, Other (See Below) Other Oncologic History: CLL 2013 - Infectious Disease History Infectious Disease History: Reports: Chicken Pox - Past Surgical History HEENT Surgical History: Reports: LASIK, Tonsillectomy Cardiovascular Surgical History: Reports: None Respiratory Surgical History: Reports: None GI Surgical History: Reports: Colonoscopy Female Surgical History: Reports: Hysterectomy, Salpingo-Oophorectomy Musculoskeletal Surgical History: Reports: None Dermatological Surgical History: Reports: None Social & Family History - Tobacco Use Tobacco Use Status *Q: Never Tobacco User - Caffeine Use Caffeine Use: Reports: Coffee - Recreational Drug Use Recreational Drug Use: No - Living Situation & Occupation Living situation: Reports: Occupation: Retired (lives with in [place], [place]. Has 3 adult children and many Grandchildren.) H&P Review of Systems - Review of Systems: Review Of Systems: See Below General: Reports: Fever, Chills, Malaise, Weakness, Fatigue, Decreased Appetite HEENT: Reports: Headaches, Sinus Congestion. Denies: Dysphasia, Ear Pain, Eye Pain, Sore Throat Pulmonary: Reports: Shortness of Breath, Cough. Denies: Wheezing, Pleuritic Chest Pain, Sputum, Hemoptysis Cardiovascular: Reports: No Symptoms Gastrointestinal: Reports: Diarrhea, Nausea. Denies: Difficulty Swallowing, Distension, Hematemesis, Hematochezia, Melena, Vomiting Genitourinary: Reports: No Symptoms Musculoskeletal: Reports: Muscle Pain, Muscle Stiffness Skin: Reports: No Symptoms Psychiatric: Reports: No Symptoms Neurological: Reports: No Symptoms Hematologic/Lymphatic: Reports: No Symptoms Immunologic: Reports: No Symptoms Exam - Exam Exam: See Below - Vital Signs Vital Signs: Last Vital Signs Temp 97.0 F 06/11/21 11:06 Pulse 88 06/11/21 15:04 Resp 18 06/11/21 15:04 BP 103/44 L 06/11/21 13:39 Pulse Ox 94 L 06/11/21 15:04 Weight: 109 lb - Exam Quality Assessment: DVT Prophylaxis General: Alert, Oriented, Cooperative, Moderate Distress HEENT: Conjunctiva Clear, Hearing Intact, Normal Nasal Septum, Posterior Pharynx Clear, Pupils Equal. No: Mucosa Moist & [place] Neck: Supple, Trachea Midline, +2 Carotid Pulse wo Bruit Lungs: Clear to Auscultation, Normal Respiratory Effort. No: Rales, Rhonchi, Wheezing Cardiovascular: Regular Rate, Regular Rhythm, Normal S1, Normal S2. No: Systolic Murmur, Diastolic Murmur GI/Abdominal Exam: Soft, Non-Tender, No Organomegaly, No Distention Back Exam: Normal Inspection, Full Range of Motion Extremities: Non-Tender, No Pedal Edema Skin: Warm, Dry, Intact Neurological: Cranial Nerves Intact, Strength Equal Bilateral, Normal Speech, Normal Tone, Sensation Intact. No: Focal Deficit Neuro Extensive - Mental Status: Alert, Oriented x3, Normal Mood/Affect, Normal Cognition, Memory Intact - Patient Data Lab Results Last 24 hrs: Laboratory Results - last 24 hr 06/11/21 06/11/21 06/11/21 Range/Units 11:26 11:39 14:05 WBC 4.5 (4.5-11.0) K/uL RBC 3.75 (3.30-5.50) M/uL Hgb 11.5 L (12.0-15.0) g/dL Hct 35.4 L (36.0-48.0) % MCV 94 (80-98) fL MCH 31 (27-31) pg MCHC 33 (32-36) % Plt Count 213 (150-400) K/uL Sodium 139 L (140-148) mmol/L Potassium 3.7 (3.6-5.2) mmol/L Chloride 101 (100-108) mmol/L Carbon Dioxide 26 (21-32) mmol/L Anion Gap 15.7 H (5.0-14.0) mmol/L BUN 14 (7-18) mg/dL Creatinine 1.1 H (0.6-1.0) mg/dL Est Cr Clr Drug Dosing 31.84 mL/min Estimated GFR (MDRD) 48 L (>60) Glucose 102 (74-106) mg/dL Calcium 8.1 L (8.5-10.1) mg/dL Total Bilirubin 0.4 D (0.2-1.0) mg/dL AST 12 L (15-37) U/L ALT 12 (12-78) U/L Alkaline Phosphatase 74 (46-116) U/L C-Reactive Protein (0.0-0.3) mg/dL Total Protein 5.7 L (6.4-8.2) g/dL Albumin 2.8 L (3.4-5.0) g/dL Globulin 2.9 (2.3-3.5) g/dL Albumin/Globulin Ratio 1.0 L (1.2-2.2) Urine Color Yellow (YELLOW) Urine Appearance Slightly cloudy A (CLEAR) Urine pH 6.5 (5.0-8.0) Ur Specific [place] 1.020 (1.008-1.030) Urine Protein 100 H (NEGATIVE) mg/dL Urine Glucose (UA) Negative (NEGATIVE) mg/dL Urine Ketones Negative (NEGATIVE) mg/dL Urine Occult Blood Moderate H (NEGATIVE) Urine Nitrite Negative (NEGATIVE) Urine Bilirubin Negative (NEGATIVE) Urine Urobilinogen 0.2 (0.2-1.0) EU/dL Ur Leukocyte Esterase Trace H (NEGATIVE) Urine RBC 10-20 H (0-5) Urine WBC 5-10 H (0-5) Ur Epithelial Cells Few Amorphous Sediment Rare Urine Bacteria Rare Urine Mucus Not seen 06/11/21 Range/Units 15:01 WBC (4.5-11.0) K/uL RBC (3.30-5.50) M/uL Hgb (12.0-15.0) g/dL Hct (36.0-48.0) % MCV (80-98) fL MCH (27-31) pg MCHC (32-36) % Plt Count (150-400) K/uL Sodium (140-148) mmol/L Potassium (3.6-5.2) mmol/L Chloride (100-108) mmol/L Carbon Dioxide (21-32) mmol/L Anion Gap (5.0-14.0) mmol/L BUN (7-18) mg/dL Creatinine (0.6-1.0) mg/dL Est Cr Clr Drug Dosing mL/min Estimated GFR (MDRD) (>60) Glucose (74-106) mg/dL Calcium (8.5-10.1) mg/dL Total Bilirubin (0.2-1.0) mg/dL AST (15-37) U/L ALT (12-78) U/L Alkaline Phosphatase (46-116) U/L C-Reactive Protein 4.54 H (0.0-0.3) mg/dL Total Protein (6.4-8.2) g/dL Albumin (3.4-5.0) g/dL Globulin (2.3-3.5) g/dL Albumin/Globulin Ratio (1.2-2.2) Urine Color (YELLOW) Urine Appearance (CLEAR) Urine pH (5.0-8.0) Ur Specific [place] (1.008-1.030) Urine Protein (NEGATIVE) mg/dL Urine Glucose (UA) (NEGATIVE) mg/dL Urine Ketones (NEGATIVE) mg/dL Urine Occult Blood (NEGATIVE) Urine Nitrite (NEGATIVE) Urine Bilirubin (NEGATIVE) Urine Urobilinogen (0.2-1.0) EU/dL Ur Leukocyte Esterase (NEGATIVE) Urine RBC (0-5) Urine WBC (0-5) Ur Epithelial Cells Amorphous Sediment Urine Bacteria Urine Mucus Result Diagrams: 06/11/21 11:26 06/11/21 11:39 Sepsis Event Note - Evaluation Sepsis Screening Result: No Definite Risk - Focused Exam Vital Signs: Vital Signs Temp Pulse Resp BP Pulse Ox 06/11/21 15:04 88 18 94 L 06/11/21 13:39 76 103/44 L 06/11/21 11:06 97.0 F 97 20 106/40 L 98 *Q Meaningful Use (ADM) - VTE Risk Assess *Q Each Risk Factor Represents 1 Point: None Total Score 1 Point Risk Factors: 0 Each Risk Factor Represents 2 Points: Malignancy (present or previous) Total Score 2 Point Risk Factors: 2 Each Risk Factor Represents 3 Points: Age 75 Years or Greater Total Score 3 Point Risk Factors: 3 Each Risk Factor Represents 5 Points: None Total Score 5 Point Risk Factors: 0 Venous Thromboembolism Risk Factor Score *Q: 5 Problem List Initiated/Reviewed/Updated: Yes Orders Last 24hrs: Active Orders 24 hr Category Date Time Status Patient Status Manage Transfer [TRANSFER] Routine ADT 06/11/21 15:18 Ordered CORONAVIRUS COVID-19 NEREYDA [MOLEC] Stat Lab 06/11/21 15:17 Received CULTURE BLOOD [BC] Stat Lab 06/11/21 15:16 Ordered CULTURE BLOOD [BC] Stat Lab 06/11/21 15:16 Ordered CULTURE URINE [RM] Stat Lab 06/11/21 14:36 Received LACTIC ACID [CHEM] Stat Lab 06/11/21 15:20 Received PROCALCITONIN [CHEM] Stat Lab 06/11/21 15:20 Received Azithromycin [Zithromax] Med 06/11/21 15:25 Once 500 mg PO ONETIME ONE Doxycycline [Vibramycin] 100 mg Med 06/11/21 16:30 Active Sodium Chloride 0.9% [Normal Saline] 100 ml IV Q12H Sodium Chloride 0.9% [Saline Flush] Med 06/11/21 11:26 Active 10 ml FLUSH ASDIRECTED PRN cefTRIAXone [Rocephin] 1 gm Med 06/11/21 15:25 Active Sodium Chloride 0.9% [Normal Saline] 50 ml IV ONETIME cefTRIAXone [Rocephin] 1 gm Med 06/11/21 16:00 Active Sodium Chloride 0.9% [Normal Saline] 50 ml IV Q24H Blood Culture x2 Reflex Set [OM.PC] Urgent Oth 06/11/21 15:16 Ordered Saline Lock Insert [OM.PC] Routine Oth 06/11/21 11:26 Ordered Resuscitation Status Routine Resus Stat 06/11/21 15:22 Ordered Medication Orders Azithromycin (Azithromycin 250 Mg Tab) 500 mg PO ONETIME ONE Stop: 06/11/21 15:26 Ceftriaxone Sodium 1 gm/ (Sodium Chloride) 50 mls @ 100 mls/hr IV Q24H [facility]OR[facility] Doxycycline Hyclate 100 mg/ (Sodium Chloride) 100 mls @ 100 mls/hr IV Q12H DELORIS Ceftriaxone Sodium 1 gm/ (Sodium Chloride) 50 mls @ 100 mls/hr IV ONETIME ONE Stop: 06/11/21 15:54 Sodium Chloride (Sodium Chloride 0.9% 10 Ml Syringe) 10 ml FLUSH ASDIRECTED PRN PRN Reason: Keep Vein Open Last Admin: 06/11/21 11:50 Dose: 10 ml Documented by: YOLI Assessment/Plan Comment:: ASSESSMENT AND PLAN WEAKNESS AND DEHYDRATION-secondary to COVID-19 infection. She is very weak and unsafe for discharged home. -IV fluids for hydration -Reassess in a.m. COVID-19 INFECTION-multiple symptoms over the past week. She does have a cough, but no significant respiratory compromise or hypoxia. -Monoclonal antibody infusion CHRONIC LYMPHOCYTIC LEUKEMIA-leukemia as well as current treatment place her at risk for immune compromise -Continue outpatient medications MAINTENANCE ISSUES -DVT prophylaxis; Lovenox 40 mg subcu daily -GI prophylaxis; not indicated -George catheter; not indicated -Nutrition; regular diet -Nicotine dependence; not required CODE STATUS-FULL CODE ADMISSION STATUS-this patient will be admitted to observation status, expect no more than a one night hospital stay for evaluation and management of problems as outlined above. DISPOSITION-anticipate discharge to home after the hospital stay. - Mortality Measure Prognosis:: Good
[2021-06-11] MEDS ORDERED: cefTRIAXone 1 GM in Sodium Chloride 0.9% 50 ML IV SCH (16:00)
[2021-06-11] MEDS ORDERED: Doxycycline 100 MG in Sodium Chloride 0.9% 100 ML IV SCH (16:30)
[2021-06-11] MEDS ORDERED: Famotidine 20 MG/2 ML SDV IVPUSH PRN (16:58)
[2021-06-11] MEDS ORDERED: EPINEPHrine 1 MG/ML SDV IM PRN (16:58)
[2021-06-11] MEDS ORDERED: methylPREDNISolone Sodium Succinate 125 MG/2 ML SDV IVPUSH PRN (16:58)
[2021-06-11] MEDS ORDERED: diphenhydrAMINE 50 MG/ML SDV IVPUSH PRN (16:58)
[2021-06-11] MEDS ORDERED: Enoxaparin 40 MG/0.4 ML Syringe SUBCUT SCH (18:51)
[2021-06-11] MEDS ORDERED: Acetaminophen 325 MG Tab PO PRN (18:51)
[2021-06-11] MEDS ORDERED: Ondansetron 4 MG/2 ML SDV IV PRN (18:51)
[2021-06-11] MEDS ORDERED: Polyethylene Glycol 3350 Powder 17 GM Packet PO PRN (18:51)
[2021-06-11] MEDS: Sodium Chloride 0.9% 1,000 ML IV SCH (19:39)
[2021-06-11] MEDS ORDERED: Sodium Chloride 0.9% 10 ML Syringe FLUSH SCH (20:00)
[2021-06-11] MEDS ORDERED: CASIRIVIMAB/IMDEVIMAB 10 ML in Sodium Chloride 0.9% 150 ML IV ONE (20:00)
[2021-06-11] MEDS ORDERED: Acyclovir 200 MG Cap PO ONE (21:00)
[2021-06-11] MEDS: Melatonin 3 MG Tab PO PRN (23:28)
[2021-06-12] MEDS: Sodium Chloride 0.9% 1,000 ML IV SCH ×2 (03:47→12:46)
[2021-06-12] MEDS ORDERED: VENETOCLAX 100 MG PO SCH (09:00)
[2021-06-12] MEDS ORDERED: Non-Formulary Medication 1 Each (Ibrutinib [Imbruvica] 140 MG Capsule) PO SCH (09:00)
[2021-06-12] MEDS ORDERED: ESTRADIOL 2 MG PO SCH (09:00)
[2021-06-12] MEDS ORDERED: ACYCLOVIR 400 MG PO SCH (09:00)
[2021-06-12] MEDS ORDERED: Acyclovir 200 MG Cap PO SCH (11:00)
[2021-06-12] MEDS ORDERED: Estradiol 0.5 MG Tab PO SCH (11:00)
[2021-06-12] MEDS ORDERED: IMBRUVICA 420 MG PO SCH (11:00)
[2021-06-12] MEDS: VENCLEXTA 100 MG PO SCH (12:40)
[2021-06-12] MEDS: ESTRADIOL 1 MG PO SCH (15:33)
[2021-06-12] MEDS: ACYCLOVIR 400 MG PO SCH ×2 (15:33→21:57)
--- NOTE | 2021-06-12 16:44 | PCM.PN ---
- General Info Date of Service: 06/12/21 Subjective Update: Ms. Marquez has remained stable since admission yesterday. She has received IV fluids for dehydration. Continues to feel very weak with ongoing nonproductive cough. She has not had significant hypoxia since admission. Functional Status: Reports: Urinating - Review of Systems General: Reports: Weakness, Fatigue. Denies: Fever, Chills Pulmonary: Reports: Shortness of Breath, Cough. Denies: Pleuritic Chest Pain, Sputum, Hemoptysis, Wheezing Cardiovascular: Reports: Dyspnea on Exertion. Denies: Chest Pain, Palpitations, Orthopnea, PND, Edema, Lightheadedness Gastrointestinal: Reports: No Symptoms Genitourinary: Reports: No Symptoms - Patient Data Vitals - Most Recent: Last Vital Signs Temp 95.3 F L 06/12/21 15:28 Pulse 78 06/12/21 15:28 Resp 15 06/12/21 15:28 BP 93/40 L 06/12/21 15:28 Pulse Ox 91 L 06/12/21 15:28 Weight - Most Recent: 109 lb Lab Results Last 24 Hours: Laboratory Results - last 24 hr 06/12/21 06/12/21 Range/Units 05:32 05:32 WBC 4.7 (4.5-11.0) K/uL RBC 3.35 (3.30-5.50) M/uL Hgb 10.3 L (12.0-15.0) g/dL Hct 31.9 L (36.0-48.0) % MCV 95 (80-98) fL MCH 31 (27-31) pg MCHC 32 (32-36) % Plt Count 207 (150-400) K/uL Neut % (Auto) 71.3 H (36-66) % Lymph % (Auto) 14.5 L (24-44) % [place] % (Auto) 13.4 H (2-6) % Eos % (Auto) 0.6 L (2-4) % Baso % (Auto) 0.2 (0-1) % Sodium 138 L (140-148) mmol/L Potassium 3.7 (3.6-5.2) mmol/L Chloride 103 (100-108) mmol/L Carbon Dioxide 24 (21-32) mmol/L Anion Gap 14.7 H (5.0-14.0) mmol/L BUN 11 (7-18) mg/dL Creatinine 0.9 (0.6-1.0) mg/dL Est Cr Clr Drug Dosing 38.91 mL/min Estimated GFR (MDRD) > 60 (>60) Glucose 81 (74-106) mg/dL Calcium 7.6 L (8.5-10.1) mg/dL [place] Results Last 24 Hours: Microbiology 06/11/21 15:30 Aerobic Blood Culture - Preliminary Blood - Arm, Left NO GROWTH AFTER 1 DAY Anaerobic Blood Culture - Preliminary NO GROWTH AFTER 1 DAY 06/11/21 15:45 Aerobic Blood Culture - Preliminary Blood - Arm, Left NO GROWTH AFTER 1 DAY Anaerobic Blood Culture - Preliminary NO GROWTH AFTER 1 DAY 06/11/21 14:36 Urine Culture - Preliminary Urine, Clean Catch MIXED POSITIVE FRAN DAY 1 Med Orders - Current: Current Medications Acetaminophen (Acetaminophen 325 Mg Tab) 650 mg PO Q4H PRN PRN Reason: Pain (Mild 1-3)/fever Enoxaparin Sodium (Enoxaparin 40 Mg/0.4 Ml Syringe) 40 mg SUBCUT Q24H [facility] Melatonin (Melatonin 3 Mg Tab) 6 mg PO BEDTIME PRN PRN Reason: Sleep Last Admin: 06/11/21 23:28 Dose: 6 mg Documented by: Ondansetron HCl (Ondansetron 4 Mg/2 Ml Sdv) 4 mg IV Q4H PRN PRN Reason: Nausea/Vomiting Last Admin: 06/12/21 15:23 Dose: 4 mg Documented by: Venclexta 100mg Tab ((Ptom)) 0 each PO DAILY [facility] Last Admin: 06/12/21 12:40 Dose: 2 each Documented by: Imbruvica 420mg Tab ((Ptom)) 0 each PO Q24H [facility] Acyclovir 400mg (Ptom) 0 each PO BID [facility] Last Admin: 06/12/21 15:33 Dose: Not Given Documented by: Estradiol 1mg Ptom () 0 each PO DAILY [facility] Last Admin: 06/12/21 15:33 Dose: Not Given Documented by: Polyethylene Glycol (Polyethylene Glycol 3350 Powder 17 Gm Packet) 17 gm PO DAILY PRN PRN Reason: Constipation Sodium Chloride (Sodium Chloride 0.9% 10 Ml Syringe) 10 ml FLUSH ASDIRECTED PRN PRN Reason: Keep Vein Open Discontinued Medications Acyclovir (Acyclovir 200 Mg Cap) 200 mg PO ONETIME ONE Stop: 06/11/21 21:01 Last Admin: 06/11/21 20:53 Dose: 200 mg Documented by: Azithromycin (Azithromycin 250 Mg Tab) 500 mg PO ONETIME ONE Stop: 06/11/21 15:26 Last Admin: 06/11/21 15:45 Dose: 500 mg Documented by: Diphenhydramine HCl (Diphenhydramine 50 Mg/Ml Sdv) 50 mg IVPUSH ONETIME PRN PRN Reason: hypersensitivity reaction Enoxaparin Sodium (Enoxaparin 40 Mg/0.4 Ml Syringe) 40 mg SUBCUT DAILY [facility] Last Admin: 06/11/21 20:02 Dose: 40 mg Documented by: Epinephrine HCl (Epinephrine 1 Mg/Ml Sdv) 0.3 mg IM ASDIRECTED PRN PRN Reason: hypersensitivity reaction Famotidine (Famotidine 20 Mg/2 Ml Sdv) 20 mg IVPUSH ASDIRECTED PRN PRN Reason: hypersensitivity reaction Lactated Ringer's (Ringers, Lactated) 1,000 mls @ 1,000 mls/hr IV BOLUS ONE Stop: 06/11/21 13:24 Last Admin: 06/11/21 12:35 Dose: 1,000 mls/hr Documented by: Ceftriaxone Sodium 1 gm/ (Sodium Chloride) 50 mls @ 100 mls/hr IV Q24H [facility] Last Admin: 06/11/21 15:33 Dose: 100 mls/hr Documented by: Doxycycline Hyclate 100 mg/ (Sodium Chloride) 100 mls @ 100 mls/hr IV Q12H [facility] Last Admin: 06/11/21 16:10 Dose: Not Given Documented by: Ceftriaxone Sodium 1 gm/ (Sodium Chloride) 50 mls @ 100 mls/hr IV ONETIME ONE Stop: 06/11/21 15:54 Last Admin: 06/11/21 15:34 Dose: Not Given Documented by: CASIRIVIMAB/IMDEVIMAB 10 ml/ (Sodium Chloride) 160 mls @ 310 mls/hr IV ONETIME ONE Stop: 06/11/21 20:30 Last Admin: 06/11/21 19:45 Dose: 310 mls/hr Documented by: Sodium Chloride (Normal Saline) 1,000 mls @ 125 mls/hr IV ASDIRECTED DELORIS Last Admin: 06/12/21 12:46 Dose: 125 mls/hr Documented by: Influenza Virus Vaccine (Pharmacy To Dose - Influenza Vaccine) 1 each IM ONETIME ONE Stop: 06/12/21 10:01 Influenza Virus Vaccine (Flu Vacc Qx2150-72(65yr Up)/Pf 240 Mcg/0.7 Ml Syringe) 240 mcg IM .ONCE ONE Stop: 06/12/21 10:01 Last Admin: 06/12/21 10:10 Dose: 240 mcg Documented by: Methylprednisolone Sodium Succinate (Methylprednisolone Sodium Succinate 125 Mg/2 Ml Sdv) 125 mg IVPUSH ASDIRECTED PRN PRN Reason: hypersensitivity reaction Ondansetron HCl (Ondansetron 4 Mg/2 Ml Sdv) 4 mg IVPUSH ONETIME ONE Stop: 06/11/21 11:27 Last Admin: 06/11/21 11:49 Dose: 4 mg Documented by: Sodium Chloride (Sodium Chloride 0.9% 10 Ml Syringe) 10 ml FLUSH ASDIRECTED PRN PRN Reason: Keep Vein Open Last Admin: 06/11/21 11:50 Dose: 10 ml Documented by: Sodium Chloride (Sodium Chloride 0.9% 10 Ml Syringe) 30 ml FLUSH ASDIRECTED DELORIS Stop: 06/11/21 22:00 - Exam Quality Assessment: DVT Prophylaxis General: Alert, Oriented, Cooperative, Moderate Distress Lungs: Clear to Auscultation, Normal Respiratory Effort, Decreased Breath Sounds. No: Rales, Rhonchi, Wheezing Cardiovascular: Regular Rate, Regular Rhythm, No Murmurs GI/Abdominal Exam: Soft, Non-Tender, No Organomegaly, No Distention Extremities: Non-Tender, No Pedal Edema - Patient Data Lab Results Last 24 hrs: Laboratory Results - last 24 hr 06/12/21 06/12/21 Range/Units 05:32 05:32 WBC 4.7 (4.5-11.0) K/uL RBC 3.35 (3.30-5.50) M/uL Hgb 10.3 L (12.0-15.0) g/dL Hct 31.9 L (36.0-48.0) % MCV 95 (80-98) fL MCH 31 (27-31) pg MCHC 32 (32-36) % Plt Count 207 (150-400) K/uL Neut % (Auto) 71.3 H (36-66) % Lymph % (Auto) 14.5 L (24-44) % [place] % (Auto) 13.4 H (2-6) % Eos % (Auto) 0.6 L (2-4) % Baso % (Auto) 0.2 (0-1) % Sodium 138 L (140-148) mmol/L Potassium 3.7 (3.6-5.2) mmol/L Chloride 103 (100-108) mmol/L Carbon Dioxide 24 (21-32) mmol/L Anion Gap 14.7 H (5.0-14.0) mmol/L BUN 11 (7-18) mg/dL Creatinine 0.9 (0.6-1.0) mg/dL Est Cr Clr Drug Dosing 38.91 mL/min Estimated GFR (MDRD) > 60 (>60) Glucose 81 (74-106) mg/dL Calcium 7.6 L (8.5-10.1) mg/dL Result Diagrams: 06/12/21 05:32 06/12/21 05:32 [place] Results Last 24 hrs: Microbiology 06/11/21 15:30 Aerobic Blood Culture - Preliminary Blood - Arm, Left NO GROWTH AFTER 1 DAY Anaerobic Blood Culture - Preliminary NO GROWTH AFTER 1 DAY 06/11/21 15:45 Aerobic Blood Culture - Preliminary Blood - Arm, Left NO GROWTH AFTER 1 DAY Anaerobic Blood Culture - Preliminary NO GROWTH AFTER 1 DAY 06/11/21 14:36 Urine Culture - Preliminary Urine, Clean Catch MIXED POSITIVE FRAN DAY 1 Sepsis Event Note - Evaluation Sepsis Screening Result: No Definite Risk - Focused Exam Vital Signs: Vital Signs Temp Pulse Resp BP Pulse Ox 06/12/21 15:28 95.3 F L 78 15 93/40 L 91 L 06/12/21 12:22 93 L 06/12/21 12:00 95.2 F L 79 18 93 L 06/12/21 08:00 95.0 F L 75 18 97/32 L 90 L 06/12/21 07:22 91 L - Problem List Review Problem List Initiated/Reviewed/Updated: Yes - My Orders Last 24 Hours: My Active Orders 06/11/21 15:45 CULTURE BLOOD [BC] Stat 06/11/21 Dinner Regular Diet [DIET] 06/11/21 18:51 Acetaminophen [TylenoL] 650 mg PO Q4H PRN Ondansetron [Zofran] 4 mg IV Q4H PRN Sodium Chloride 0.9% [Saline Flush] 10 ml FLUSH ASDIRECTED PRN polyethylene glycoL 3350 [MiraLAX] 17 gm PO DAILY PRN 06/11/21 18:51 Patient Status [ADT] Routine Ambulate [RC] QID Height and Weight [RC] DAILY Intake and Output [RC] QSHIFT Notify Provider Vital Signs [RC] ASDIRECTED Oxygen Therapy [RC] PRN Peripheral IV Care [RC] . DIRECTED Pulse Oximetry [RC] CONTINUOUS Up With Assistance [RC] ASDIRECTED Up to Chair [RC] QID VTE/DVT Education [RC] Per Unit Routine Vital Signs [RC] Q4H Peripheral IV Insertion Adult [OM.PC] Routine 06/11/21 20:48 Vaccine to be Administered/Admin Charge [RC] 1000 06/12/21 11:00 Patient's Own Medication [Ptom] 0 each PO DAILY 06/12/21 14:30 Patient's Own Medication [Ptom] 0 each PO BID Patient's Own Medication [Ptom] 0 each PO DAILY 06/12/21 16:40 Convert IV to Saline Lock [OM.PC] Routine 06/12/21 18:00 Patient's Own Medication [Ptom] 0 each PO Q24H 06/12/21 20:00 Enoxaparin [Lovenox] 40 mg SUBCUT Q24H - Plan Plan:: ASSESSMENT AND PLAN WEAKNESS AND DEHYDRATION-secondary to COVID-19 infection. She is very weak and unsafe for discharged home. -Saline lock IV -Reassess in a.m. COVID-19 INFECTION-multiple symptoms over the past week. She does have a cough, but no significant respiratory compromise or hypoxia. She has received monoclonal antibody infusion. -Supportive care CHRONIC LYMPHOCYTIC LEUKEMIA-leukemia as well as current treatment place her at risk for immune compromise -Continue outpatient medications MAINTENANCE ISSUES -DVT prophylaxis; Lovenox 40 mg subcu daily -GI prophylaxis; not indicated -George catheter; not indicated -Nutrition; regular diet -Nicotine dependence; not required CODE STATUS-FULL CODE ADMISSION STATUS-this patient will be admitted to observation status, expect no more than a one night hospital stay for evaluation and management of problems as outlined above. DISPOSITION-anticipate discharge to home after the hospital stay.
[2021-06-12] MEDS: IMBRUVICA 420 MG PO SCH (17:39)
[2021-06-12] MEDS: Enoxaparin 40 MG/0.4 ML Syringe SUBCUT SCH (21:56)
[2021-06-12] MEDS: Melatonin 3 MG Tab PO PRN (23:55)
[2021-06-13] MEDS: ESTRADIOL 1 MG PO SCH (10:15)
[2021-06-13] MEDS: VENCLEXTA 100 MG PO SCH (10:15)
[2021-06-13] MEDS: ACYCLOVIR 400 MG PO SCH (10:16)
--- NOTE | 2021-06-13 10:26 | PCM.PN ---
- General Info Date of Service: 06/13/21 Subjective Update: Ms. Marquez has been noted to have significant oxygen desaturation with activity, at rest saturations are 90 to 91% on room air. She has continued cough and weak ness. Vital signs have otherwise been stable and she has remained afebrile. Functional Status: Reports: Urinating. Denies: Tolerating Diet - Review of Systems General: Reports: Weakness, Fatigue. Denies: Fever, Chills Pulmonary: Reports: Shortness of Breath, Cough. Denies: Pleuritic Chest Pain, Sputum, Hemoptysis, Wheezing Cardiovascular: Reports: Dyspnea on Exertion. Denies: Chest Pain, Palpitations, Orthopnea, PND, Edema, Lightheadedness Gastrointestinal: Reports: No Symptoms Genitourinary: Reports: No Symptoms - Patient Data Vitals - Most Recent: Last Vital Signs Temp 96.7 F L 06/13/21 09:36 Pulse 69 06/13/21 09:36 Resp 16 06/13/21 09:36 BP 94/42 L 06/13/21 09:36 Pulse Ox 93 L 06/13/21 09:36 Weight - Most Recent: 109 lb I&O - Last 24 Hours: Intake & Output 06/12/21 06/13/21 06/13/21 22:59 06:59 14:59 Intake Total 250 100 Balance 250 100 [place]asta Results Last 24 Hours: Microbiology 06/11/21 14:36 Urine Culture - Final Urine, Clean Catch MIXED POSITIVE FRAN DAY 2 06/11/21 15:30 Aerobic Blood Culture - Preliminary Blood - Arm, Left NO GROWTH AFTER 1 DAY Anaerobic Blood Culture - Preliminary NO GROWTH AFTER 1 DAY 06/11/21 15:45 Aerobic Blood Culture - Preliminary Blood - Arm, Left NO GROWTH AFTER 1 DAY Anaerobic Blood Culture - Preliminary NO GROWTH AFTER 1 DAY Med Orders - Current: Current Medications Acetaminophen (Acetaminophen 325 Mg Tab) 650 mg PO Q4H PRN PRN Reason: Pain (Mild 1-3)/fever Dexamethasone (Dexamethasone 4 Mg/Ml Sdv) 6 mg IVPUSH Q24H [facility] Enoxaparin Sodium (Enoxaparin 40 Mg/0.4 Ml Syringe) 40 mg SUBCUT Q24H [facility] Last Admin: 06/12/21 21:56 Dose: 40 mg Documented by: Remdesivir 200 mg/ Sodium (Chloride) 250 mls @ 250 mls/hr IV ONETIME ONE Stop: 06/13/21 10:22 Remdesivir 100 mg/ Sodium (Chloride) 100 mls @ 100 mls/hr IV Q24H [facility] Stop: 06/17/21 11:59 Loperamide HCl (Loperamide 2 Mg Cap) 2 mg PO Q4H PRN PRN Reason: Diarrhea Melatonin (Melatonin 3 Mg Tab) 6 mg PO BEDTIME PRN PRN Reason: Sleep Last Admin: 06/12/21 23:55 Dose: 6 mg Documented by: Ondansetron HCl (Ondansetron 4 Mg/2 Ml Sdv) 4 mg IV Q4H PRN PRN Reason: Nausea/Vomiting Last Admin: 06/12/21 15:23 Dose: 4 mg Documented by: Venclexta 100mg Tab ((Ptom)) 0 each PO DAILY [facility] Last Admin: 06/13/21 10:15 Dose: 1 each Documented by: Imbruvica 420mg Tab ((Ptom)) 0 each PO Q24H [facility] Last Admin: 06/12/21 17:39 Dose: 1 each Documented by: Acyclovir 400mg (Ptom) 0 each PO BID [facility] Last Admin: 06/13/21 10:16 Dose: 1 each Documented by: Estradiol 1mg Ptom () 0 each PO DAILY [facility] Last Admin: 06/13/21 10:15 Dose: 1 each Documented by: Polyethylene Glycol (Polyethylene Glycol 3350 Powder 17 Gm Packet) 17 gm PO DAILY PRN PRN Reason: Constipation Sodium Chloride (Sodium Chloride 0.9% 10 Ml Syringe) 10 ml FLUSH ASDIRECTED PRN PRN Reason: Keep Vein Open Discontinued Medications Acyclovir (Acyclovir 200 Mg Cap) 200 mg PO ONETIME ONE Stop: 06/11/21 21:01 Last Admin: 06/11/21 20:53 Dose: 200 mg Documented by: Azithromycin (Azithromycin 250 Mg Tab) 500 mg PO ONETIME ONE Stop: 06/11/21 15:26 Last Admin: 06/11/21 15:45 Dose: 500 mg Documented by: Diphenhydramine HCl (Diphenhydramine 50 Mg/Ml Sdv) 50 mg IVPUSH ONETIME PRN PRN Reason: hypersensitivity reaction Enoxaparin Sodium (Enoxaparin 40 Mg/0.4 Ml Syringe) 40 mg SUBCUT DAILY [facility] Last Admin: 06/11/21 20:02 Dose: 40 mg Documented by: Epinephrine HCl (Epinephrine 1 Mg/Ml Sdv) 0.3 mg IM ASDIRECTED PRN PRN Reason: hypersensitivity reaction Famotidine (Famotidine 20 Mg/2 Ml Sdv) 20 mg IVPUSH ASDIRECTED PRN PRN Reason: hypersensitivity reaction Lactated Ringer's (Ringers, Lactated) 1,000 mls @ 1,000 mls/hr IV BOLUS ONE Stop: 06/11/21 13:24 Last Admin: 06/11/21 12:35 Dose: 1,000 mls/hr Documented by: Ceftriaxone Sodium 1 gm/ (Sodium Chloride) 50 mls @ 100 mls/hr IV Q24H [facility] Last Admin: 06/11/21 15:33 Dose: 100 mls/hr Documented by: Doxycycline Hyclate 100 mg/ (Sodium Chloride) 100 mls @ 100 mls/hr IV Q12H [facility] Last Admin: 06/11/21 16:10 Dose: Not Given Documented by: Ceftriaxone Sodium 1 gm/ (Sodium Chloride) 50 mls @ 100 mls/hr IV ONETIME ONE Stop: 06/11/21 15:54 Last Admin: 06/11/21 15:34 Dose: Not Given Documented by: CASIRIVIMAB/IMDEVIMAB 10 ml/ (Sodium Chloride) 160 mls @ 310 mls/hr IV ONETIME ONE Stop: 06/11/21 20:30 Last Admin: 06/11/21 19:45 Dose: 310 mls/hr Documented by: Sodium Chloride (Normal Saline) 1,000 mls @ 125 mls/hr IV ASDIRECTED [facility] Last Admin: 06/12/21 12:46 Dose: 125 mls/hr Documented by: Influenza Virus Vaccine (Pharmacy To Dose - Influenza Vaccine) 1 each IM ONETIME ONE Stop: 06/12/21 10:01 Influenza Virus Vaccine (Flu Vacc [id number](65yr Up)/Pf 240 Mcg/0.7 Ml Syringe) 240 mcg IM .ONCE ONE Stop: 06/12/21 10:01 Last Admin: 06/12/21 10:10 Dose: 240 mcg Documented by: Methylprednisolone Sodium Succinate (Methylprednisolone Sodium Succinate 125 Mg/2 Ml Sdv) 125 mg IVPUSH ASDIRECTED PRN PRN Reason: hypersensitivity reaction Ondansetron HCl (Ondansetron 4 Mg/2 Ml Sdv) 4 mg IVPUSH ONETIME ONE Stop: 06/11/21 11:27 Last Admin: 06/11/21 11:49 Dose: 4 mg Documented by: Sodium Chloride (Sodium Chloride 0.9% 10 Ml Syringe) 10 ml FLUSH ASDIRECTED PRN PRN Reason: Keep Vein Open Last Admin: 06/11/21 11:50 Dose: 10 ml Documented by: Sodium Chloride (Sodium Chloride 0.9% 10 Ml Syringe) 30 ml FLUSH ASDIRECTED [facility] Stop: 06/11/21 22:00 - Exam Quality Assessment: DVT Prophylaxis General: Alert, Oriented, Cooperative, Moderate Distress Lungs: Rales. No: Crackles, Rhonchi, Wheezing Cardiovascular: Regular Rate, Regular Rhythm, No Murmurs GI/Abdominal Exam: Soft, Non-Tender, No Organomegaly, No Distention Extremities: Non-Tender, No Pedal Edema - Patient Data Result Diagrams: 06/12/21 05:32 06/12/21 05:32 Rasta Results Last 24 hrs: Microbiology 06/11/21 14:36 Urine Culture - Final Urine, Clean Catch MIXED POSITIVE FRAN DAY 2 06/11/21 15:30 Aerobic Blood Culture - Preliminary Blood - Arm, Left NO GROWTH AFTER 1 DAY Anaerobic Blood Culture - Preliminary NO GROWTH AFTER 1 DAY 06/11/21 15:45 Aerobic Blood Culture - Preliminary Blood - Arm, Left NO GROWTH AFTER 1 DAY Anaerobic Blood Culture - Preliminary NO GROWTH AFTER 1 DAY Sepsis Event Note - Evaluation Sepsis Screening Result: No Definite Risk - Focused Exam Vital Signs: Vital Signs Temp Pulse Resp BP Pulse Ox 06/13/21 09:36 96.7 F L 69 16 94/42 L 93 L 06/13/21 07:27 90 L 06/13/21 03:58 95.7 F L 63 16 93/38 L 91 L 06/13/21 01:13 90 L 06/13/21 00:00 68 18 90 L - Problem List Review Problem List Initiated/Reviewed/Updated: Yes - My Orders Last 24 Hours: My Active Orders 06/12/21 11:00 Patient's Own Medication [Ptom] 0 each PO DAILY 06/12/21 14:30 Patient's Own Medication [Ptom] 0 each PO BID Patient's Own Medication [Ptom] 0 each PO DAILY 06/12/21 16:40 Convert IV to Saline Lock [OM.PC] Routine 06/12/21 18:00 Patient's Own Medication [Ptom] 0 each PO Q24H 06/12/21 18:41 Loperamide [Imodium] 2 mg PO Q4H PRN 06/12/21 20:00 Enoxaparin [Lovenox] 40 mg SUBCUT Q24H 06/13/21 10:20 Patient Status [ADT] Routine 06/13/21 10:21 Remdesivir 200 mg Sodium Chloride 0.9% [Normal Saline] 250 ml IV ONETIME 06/13/21 10:22 HEPATIC FUNCTION PANEL,HFP [CHEM] Stat 06/13/21 10:30 dexAMETHasone [Decadron] 6 mg IVPUSH Q24H 06/14/21 05:00 CBC WITH AUTO DIFF [HEME] Timed COMPREHENSIVE METABOLIC PN,CMP [CHEM] Timed 06/14/21 05:11 CRP [C-REACTIVE PROTEIN] [CHEM] AM D Dimer [D-DIMER QUANTITATIVE] [COAG] AM 06/14/21 11:00 Remdesivir 100 mg Sodium Chloride 0.9% [Normal Saline] 100 ml IV Q24H - Plan Plan:: ASSESSMENT AND PLAN WEAKNESS AND DEHYDRATION-secondary to COVID-19 infection. She is very weak and unsafe for discharged home. COVID-19 INFECTION-more hypoxia noted over the last 24 hours. Desaturates with minimal activity oxygen saturation at rest is in the range of 90 to 91%. -Supplemental oxygen as needed -Limit IV fluids -Decadron 6 mg IV daily, today is day 1 -Remdesivir 200 mg IV today, then 100 mg IV daily for 4 days, today is day 1 of 5 -Supportive care CHRONIC LYMPHOCYTIC LEUKEMIA-leukemia as well as current treatment place her at risk for immune compromise -Continue outpatient medications MAINTENANCE ISSUES -DVT prophylaxis; Lovenox 40 mg subcu daily -GI prophylaxis; not indicated -George catheter; not indicated -Nutrition; regular diet -Nicotine dependence; not required CODE STATUS-FULL CODE ADMISSION STATUS-this patient will be admitted to observation status, expect no more than a one night hospital stay for evaluation and management of problems as outlined above. DISPOSITION-anticipate discharge to home after the hospital stay.
[2021-06-13] MEDS ORDERED: REMDESIVIR 200 MG in Sodium Chloride 0.9% 250 ML IV ONE (11:00)
[2021-06-13] MEDS: Dexamethasone 4 MG/ML SDV IVPUSH SCH (11:55)
[2021-06-13] MEDS: Loperamide 2 MG Cap PO PRN (12:01)
[2021-06-13] MEDS: IMBRUVICA 420 MG PO SCH (18:03)
[2021-06-13] MEDS: Enoxaparin 40 MG/0.4 ML Syringe SUBCUT SCH (20:05)
[2021-06-13] MEDS: Acyclovir 200 MG Cap PO SCH (20:05)
[2021-06-13] MEDS: Melatonin 3 MG Tab PO PRN (22:41)
[2021-06-14] MEDS: Estradiol 0.5 MG Tab PO SCH (10:12)
[2021-06-14] MEDS: VENCLEXTA 100 MG PO SCH (10:12)
[2021-06-14] MEDS: Acyclovir 200 MG Cap PO SCH ×2 (10:12→20:40)
[2021-06-14] MEDS: Loperamide 2 MG Cap PO PRN (10:24)
[2021-06-14] MEDS: REMDESIVIR 100 MG in Sodium Chloride 0.9% 100 ML IV SCH (11:20)
[2021-06-14] MEDS: Dexamethasone 4 MG/ML SDV IVPUSH SCH (11:20)
--- NOTE | 2021-06-14 11:23 | PCM.PN ---
- General Info Date of Service: 06/14/21 Subjective Update: Ms. Marquez has experienced improvement over the last 24 hours with less shortness of breath and cough. Oxygenation has improved and she currently is not requiring supplemental oxygen. Remains very weak with poor appetite. Functional Status: Reports: Urinating. Denies: Tolerating Diet - Review of Systems General: Reports: Weakness, Fatigue. Denies: Fever, Chills Pulmonary: Reports: Shortness of Breath, Cough. Denies: Pleuritic Chest Pain, Sputum, Hemoptysis, Wheezing Cardiovascular: Reports: Dyspnea on Exertion. Denies: Chest Pain, Palpitations, Orthopnea, PND, Edema, Lightheadedness Gastrointestinal: Reports: No Symptoms Genitourinary: Reports: No Symptoms - Patient Data Vitals - Most Recent: Last Vital Signs Temp 93.6 F L 06/14/21 06:00 Pulse 59 L 06/14/21 06:00 Resp 16 06/14/21 06:00 BP 92/43 L 06/14/21 06:00 Pulse Ox 94 L 06/14/21 07:26 Weight - Most Recent: 109 lb Lab Results Last 24 Hours: Laboratory Results - last 24 hr 06/14/21 06/14/21 06/14/21 Range/Units 04:40 04:40 04:40 WBC 2.6 L (4.5-11.0) K/uL RBC 3.66 (3.30-5.50) M/uL Hgb 11.1 L (12.0-15.0) g/dL Hct 33.8 L (36.0-48.0) % MCV 92 (80-98) fL MCH 30 (27-31) pg MCHC 33 (32-36) % Plt Count 253 (150-400) K/uL Neut % (Auto) 64.5 (36-66) % Lymph % (Auto) 17.9 L (24-44) % [place] % (Auto) 17.6 H (2-6) % Eos % (Auto) 0.0 L (2-4) % Baso % (Auto) 0.0 (0-1) % D-Dimer, Quantitative 1062.88 H (0.0-500.0) ng/mL Sodium 141 (140-148) mmol/L Potassium 3.7 (3.6-5.2) mmol/L Chloride 106 (100-108) mmol/L Carbon Dioxide 21 (21-32) mmol/L Anion Gap 14.1 H (5.0-14.0) mmol/L BUN 16 (7-18) mg/dL Creatinine 0.7 (0.6-1.0) mg/dL Est Cr Clr Drug Dosing 50.03 mL/min Estimated GFR (MDRD) > 60 (>60) Glucose 101 (74-106) mg/dL Calcium 7.9 L (8.5-10.1) mg/dL Total Bilirubin 0.4 (0.2-1.0) mg/dL AST 12 L (15-37) U/L ALT 13 (12-78) U/L Alkaline Phosphatase 61 (46-116) U/L C-Reactive Protein (0.0-0.3) mg/dL Total Protein 4.7 L (6.4-8.2) g/dL Albumin 2.3 L (3.4-5.0) g/dL Globulin 2.4 (2.3-3.5) g/dL Albumin/Globulin Ratio 1.0 L (1.2-2.2) 06/14/21 Range/Units 04:40 WBC (4.5-11.0) K/uL RBC (3.30-5.50) M/uL Hgb (12.0-15.0) g/dL Hct (36.0-48.0) % MCV (80-98) fL MCH (27-31) pg MCHC (32-36) % Plt Count (150-400) K/uL Neut % (Auto) (36-66) % Lymph % (Auto) (24-44) % [place] % (Auto) (2-6) % Eos % (Auto) (2-4) % Baso % (Auto) (0-1) % D-Dimer, Quantitative (0.0-500.0) ng/mL Sodium (140-148) mmol/L Potassium (3.6-5.2) mmol/L Chloride (100-108) mmol/L Carbon Dioxide (21-32) mmol/L Anion Gap (5.0-14.0) mmol/L BUN (7-18) mg/dL Creatinine (0.6-1.0) mg/dL Est Cr Clr Drug Dosing mL/min Estimated GFR (MDRD) (>60) Glucose (74-106) mg/dL Calcium (8.5-10.1) mg/dL Total Bilirubin (0.2-1.0) mg/dL AST (15-37) U/L ALT (12-78) U/L Alkaline Phosphatase (46-116) U/L C-Reactive Protein 7.50 H (0.0-0.3) mg/dL Total Protein (6.4-8.2) g/dL Albumin (3.4-5.0) g/dL Globulin (2.3-3.5) g/dL Albumin/Globulin Ratio (1.2-2.2) Rasta Results Last 24 Hours: Microbiology 06/11/21 15:45 Aerobic Blood Culture - Preliminary Blood - Arm, Left NO GROWTH AFTER 2 DAYS Anaerobic Blood Culture - Preliminary NO GROWTH AFTER 2 DAYS 06/11/21 15:30 Aerobic Blood Culture - Preliminary Blood - Arm, Left NO GROWTH AFTER 2 DAYS Anaerobic Blood Culture - Preliminary NO GROWTH AFTER 2 DAYS Med Orders - Current: Current Medications Acetaminophen (Acetaminophen 325 Mg Tab) 650 mg PO Q4H PRN PRN Reason: Pain (Mild 1-3)/fever Acyclovir (Acyclovir 200 Mg Cap) 400 mg PO BID [facility] Last Admin: 06/14/21 10:12 Dose: 400 mg Documented by: Dexamethasone (Dexamethasone 4 Mg/Ml Sdv) 6 mg IVPUSH Q24H [facility] Last Admin: 06/13/21 11:55 Dose: 6 mg Documented by: Enoxaparin Sodium (Enoxaparin 40 Mg/0.4 Ml Syringe) 40 mg SUBCUT Q24H [facility] Last Admin: 06/13/21 20:05 Dose: 40 mg Documented by: Estradiol (Estradiol 0.5 Mg Tab) 0.5 mg PO DAILY [facility] Last Admin: 06/14/21 10:12 Dose: 0.5 mg Documented by: Remdesivir 100 mg/ Sodium (Chloride) 100 mls @ 100 mls/hr IV Q24H [facility] Stop: 06/17/21 11:59 Loperamide HCl (Loperamide 2 Mg Cap) 2 mg PO Q4H PRN PRN Reason: Diarrhea Last Admin: 06/14/21 10:24 Dose: 2 mg Documented by: Melatonin (Melatonin 3 Mg Tab) 6 mg PO BEDTIME PRN PRN Reason: Sleep Last Admin: 06/13/21 22:41 Dose: 6 mg Documented by: Ondansetron HCl (Ondansetron 4 Mg/2 Ml Sdv) 4 mg IV Q4H PRN PRN Reason: Nausea/Vomiting Last Admin: 06/12/21 15:23 Dose: 4 mg Documented by: Venclexta 100mg Tab ((Ptom)) 0 each PO DAILY [facility] Last Admin: 06/14/21 10:12 Dose: 1 each Documented by: Imbruvica 420mg Tab ((Ptom)) 0 each PO Q24H [facility] Last Admin: 06/13/21 18:03 Dose: 1 each Documented by: Polyethylene Glycol (Polyethylene Glycol 3350 Powder 17 Gm Packet) 17 gm PO DAILY PRN PRN Reason: Constipation Sodium Chloride (Sodium Chloride 0.9% 10 Ml Syringe) 10 ml FLUSH ASDIRECTED PRN PRN Reason: Keep Vein Open Discontinued Medications Acyclovir (Acyclovir 200 Mg Cap) 200 mg PO ONETIME ONE Stop: 06/11/21 21:01 Last Admin: 06/11/21 20:53 Dose: 200 mg Documented by: Azithromycin (Azithromycin 250 Mg Tab) 500 mg PO ONETIME ONE Stop: 06/11/21 15:26 Last Admin: 06/11/21 15:45 Dose: 500 mg Documented by: Diphenhydramine HCl (Diphenhydramine 50 Mg/Ml Sdv) 50 mg IVPUSH ONETIME PRN PRN Reason: hypersensitivity reaction Enoxaparin Sodium (Enoxaparin 40 Mg/0.4 Ml Syringe) 40 mg SUBCUT DAILY [facility] Last Admin: 06/11/21 20:02 Dose: 40 mg Documented by: Epinephrine HCl (Epinephrine 1 Mg/Ml Sdv) 0.3 mg IM ASDIRECTED PRN PRN Reason: hypersensitivity reaction Famotidine (Famotidine 20 Mg/2 Ml Sdv) 20 mg IVPUSH ASDIRECTED PRN PRN Reason: hypersensitivity reaction Lactated Ringer's (Ringers, Lactated) 1,000 mls @ 1,000 mls/hr IV BOLUS ONE Stop: 06/11/21 13:24 Last Admin: 06/11/21 12:35 Dose: 1,000 mls/hr Documented by: Ceftriaxone Sodium 1 gm/ (Sodium Chloride) 50 mls @ 100 mls/hr IV Q24H [facility] Last Admin: 06/11/21 15:33 Dose: 100 mls/hr Documented by: Doxycycline Hyclate 100 mg/ (Sodium Chloride) 100 mls @ 100 mls/hr IV Q12H [facility] Last Admin: 06/11/21 16:10 Dose: Not Given Documented by: Ceftriaxone Sodium 1 gm/ (Sodium Chloride) 50 mls @ 100 mls/hr IV ONETIME ONE Stop: 06/11/21 15:54 Last Admin: 06/11/21 15:34 Dose: Not Given Documented by: CASIRIVIMAB/IMDEVIMAB 10 ml/ (Sodium Chloride) 160 mls @ 310 mls/hr IV ONETIME ONE Stop: 06/11/21 20:30 Last Admin: 06/11/21 19:45 Dose: 310 mls/hr Documented by: Sodium Chloride (Normal Saline) 1,000 mls @ 125 mls/hr IV ASDIRECTED [facility] Last Admin: 06/12/21 12:46 Dose: 125 mls/hr Documented by: Remdesivir 200 mg/ Sodium (Chloride) 250 mls @ 250 mls/hr IV ONETIME ONE Stop: 06/13/21 11:59 Last Admin: 06/13/21 11:55 Dose: 250 mls/hr Documented by: Influenza Virus Vaccine (Pharmacy To Dose - Influenza Vaccine) 1 each IM ONETIME ONE Stop: 06/12/21 10:01 Influenza Virus Vaccine (Flu Vacc [id number](65yr Up)/Pf 240 Mcg/0.7 Ml Syringe) 240 mcg IM .ONCE ONE Stop: 06/12/21 10:01 Last Admin: 06/12/21 10:10 Dose: 240 mcg Documented by: Methylprednisolone Sodium Succinate (Methylprednisolone Sodium Succinate 125 Mg/2 Ml Sdv) 125 mg IVPUSH ASDIRECTED PRN PRN Reason: hypersensitivity reaction Ondansetron HCl (Ondansetron 4 Mg/2 Ml Sdv) 4 mg IVPUSH ONETIME ONE Stop: 06/11/21 11:27 Last Admin: 06/11/21 11:49 Dose: 4 mg Documented by: Acyclovir 400mg (Ptom) 0 each PO BID [facility] Last Admin: 06/13/21 10:16 Dose: 1 each Documented by: Estradiol 1mg Ptom () 0 each PO DAILY [facility] Last Admin: 06/13/21 10:15 Dose: 1 each Documented by: Sodium Chloride (Sodium Chloride 0.9% 10 Ml Syringe) 10 ml FLUSH ASDIRECTED PRN PRN Reason: Keep Vein Open Last Admin: 06/11/21 11:50 Dose: 10 ml Documented by: Sodium Chloride (Sodium Chloride 0.9% 10 Ml Syringe) 30 ml FLUSH ASDIRECTED [facility] Stop: 06/11/21 22:00 - Exam Quality Assessment: DVT Prophylaxis General: Alert, Oriented, Cooperative, Mild Distress Lungs: Normal Respiratory Effort, Rales. No: Crackles, Rhonchi, Wheezing Cardiovascular: Regular Rate, Regular Rhythm, No Murmurs GI/Abdominal Exam: Soft, Non-Tender, No Organomegaly, No Distention Extremities: Non-Tender, No Pedal Edema - Patient Data Lab Results Last 24 hrs: Laboratory Results - last 24 hr 06/14/21 06/14/21 06/14/21 Range/Units 04:40 04:40 04:40 WBC 2.6 L (4.5-11.0) K/uL RBC 3.66 (3.30-5.50) M/uL Hgb 11.1 L (12.0-15.0) g/dL Hct 33.8 L (36.0-48.0) % MCV 92 (80-98) fL MCH 30 (27-31) pg MCHC 33 (32-36) % Plt Count 253 (150-400) K/uL Neut % (Auto) 64.5 (36-66) % Lymph % (Auto) 17.9 L (24-44) % [place] % (Auto) 17.6 H (2-6) % Eos % (Auto) 0.0 L (2-4) % Baso % (Auto) 0.0 (0-1) % D-Dimer, Quantitative 1062.88 H (0.0-500.0) ng/mL Sodium 141 (140-148) mmol/L Potassium 3.7 (3.6-5.2) mmol/L Chloride 106 (100-108) mmol/L Carbon Dioxide 21 (21-32) mmol/L Anion Gap 14.1 H (5.0-14.0) mmol/L BUN 16 (7-18) mg/dL Creatinine 0.7 (0.6-1.0) mg/dL Est Cr Clr Drug Dosing 50.03 mL/min Estimated GFR (MDRD) > 60 (>60) Glucose 101 (74-106) mg/dL Calcium 7.9 L (8.5-10.1) mg/dL Total Bilirubin 0.4 (0.2-1.0) mg/dL AST 12 L (15-37) U/L ALT 13 (12-78) U/L Alkaline Phosphatase 61 (46-116) U/L C-Reactive Protein (0.0-0.3) mg/dL Total Protein 4.7 L (6.4-8.2) g/dL Albumin 2.3 L (3.4-5.0) g/dL Globulin 2.4 (2.3-3.5) g/dL Albumin/Globulin Ratio 1.0 L (1.2-2.2) 06/14/21 Range/Units 04:40 WBC (4.5-11.0) K/uL RBC (3.30-5.50) M/uL Hgb (12.0-15.0) g/dL Hct (36.0-48.0) % MCV (80-98) fL MCH (27-31) pg MCHC (32-36) % Plt Count (150-400) K/uL Neut % (Auto) (36-66) % Lymph % (Auto) (24-44) % [place] % (Auto) (2-6) % Eos % (Auto) (2-4) % Baso % (Auto) (0-1) % D-Dimer, Quantitative (0.0-500.0) ng/mL Sodium (140-148) mmol/L Potassium (3.6-5.2) mmol/L Chloride (100-108) mmol/L Carbon Dioxide (21-32) mmol/L Anion Gap (5.0-14.0) mmol/L BUN (7-18) mg/dL Creatinine (0.6-1.0) mg/dL Est Cr Clr Drug Dosing mL/min Estimated GFR (MDRD) (>60) Glucose (74-106) mg/dL Calcium (8.5-10.1) mg/dL Total Bilirubin (0.2-1.0) mg/dL AST (15-37) U/L ALT (12-78) U/L Alkaline Phosphatase (46-116) U/L C-Reactive Protein 7.50 H (0.0-0.3) mg/dL Total Protein (6.4-8.2) g/dL Albumin (3.4-5.0) g/dL Globulin (2.3-3.5) g/dL Albumin/Globulin Ratio (1.2-2.2) Result Diagrams: 06/14/21 04:40 06/14/21 04:40 Rasta Results Last 24 hrs: Microbiology 06/11/21 15:45 Aerobic Blood Culture - Preliminary Blood - Arm, Left NO GROWTH AFTER 2 DAYS Anaerobic Blood Culture - Preliminary NO GROWTH AFTER 2 DAYS 06/11/21 15:30 Aerobic Blood Culture - Preliminary Blood - Arm, Left NO GROWTH AFTER 2 DAYS Anaerobic Blood Culture - Preliminary NO GROWTH AFTER 2 DAYS Sepsis Event Note - Evaluation Sepsis Screening Result: No Definite Risk - Focused Exam Vital Signs: Vital Signs Temp Pulse Resp BP Pulse Ox 06/14/21 07:26 94 L 06/14/21 06:00 93.6 F L 59 L 16 92/43 L 93 L 06/14/21 02:00 96.9 F 61 16 96/48 L 93 L 06/14/21 01:11 94 L - Problem List Review Problem List Initiated/Reviewed/Updated: Yes - My Orders Last 24 Hours: My Active Orders 06/13/21 11:00 dexAMETHasone [Decadron] 6 mg IVPUSH Q24H 06/13/21 21:00 Acyclovir [Zovirax] 400 mg PO BID 06/14/21 09:00 estradioL 0.5 mg PO DAILY 06/14/21 11:00 Remdesivir 100 mg Sodium Chloride 0.9% [Normal Saline] 100 ml IV Q24H - Plan Plan:: ASSESSMENT AND PLAN WEAKNESS AND DEHYDRATION-secondary to COVID-19 infection. Improved over the past 24 hours but still weak with poor appetite COVID-19 INFECTION-oxygenation has improved since yesterday she currently has adequate saturations on room air -Supplemental oxygen as needed -Limit IV fluids -Decadron 6 mg IV daily, today is day 2 -Remdesivir 200 mg IV today, then 100 mg IV daily for 4 days, today is day 2 of 5 -Supportive care CHRONIC LYMPHOCYTIC LEUKEMIA-leukemia as well as current treatment place her at risk for immune compromise -Continue outpatient medications MAINTENANCE ISSUES -DVT prophylaxis; Lovenox 40 mg subcu daily -GI prophylaxis; not indicated -George catheter; not indicated -Nutrition; regular diet -Nicotine dependence; not required CODE STATUS-FULL CODE ADMISSION STATUS-this patient will be admitted to observation status, expect no more than a one night hospital stay for evaluation and management of problems as outlined above. DISPOSITION-anticipate discharge to home after the hospital stay.
[2021-06-14] MEDS: IMBRUVICA 420 MG PO SCH (17:53)
[2021-06-14] MEDS: Enoxaparin 40 MG/0.4 ML Syringe SUBCUT SCH (20:40)
[2021-06-14] MEDS: Melatonin 3 MG Tab PO PRN (21:31)
[2021-06-15] MEDS: Acyclovir 200 MG Cap PO SCH (08:29)
[2021-06-15] MEDS: VENCLEXTA 100 MG PO SCH (08:29)
[2021-06-15] MEDS: Estradiol 0.5 MG Tab PO SCH (08:29)
[2021-06-15] MEDS: Dexamethasone 4 MG/ML SDV IVPUSH SCH (11:50)
[2021-06-15] MEDS: REMDESIVIR 100 MG in Sodium Chloride 0.9% 100 ML IV SCH (11:50)
--- NOTE | 2021-06-15 12:29 | PCM.DCSUM1 ---
Discharge Summary - Hospital Course Brief History: 81-year-old female with history of CLL on oral treatment who presented with a week of progressive cough, weakness and anorexia. She was admitted for hydration of the setting of COVID-19 infection. Diagnosis: Stroke: No - Discharge Data Discharge Date: 06/15/21 Discharge Disposition: Home, Self-Care 01 Condition: Fair - Referral to Home Health Primary Care Physician: PCP None - Discharge Diagnosis/Problem(s) (1) Pneumonia due to 2019 novel coronavirus SNOMED Code(s): 345569984712299130 ICD Code: U07.1 - COVID-19; J12.82 - PNEUMONIA DUE TO CORONAVIRUS DISEASE 2019 Status: Acute Current Visit: Yes (2) Acute respiratory failure due to COVID-19 SNOMED Code(s): 262279438 ICD Code: U07.1 - COVID-19; J96.00 - ACUTE RESPIRATORY FAILURE, UNSP W HYPOXIA OR HYPERCAPNIA Status: Acute Current Visit: Yes (3) Weakness SNOMED Code(s): 57058619 ICD Code: R53.1 - WEAKNESS Status: Acute Current Visit: Yes (4) CLL (chronic lymphocytic leukemia) SNOMED Code(s): 31697981 ICD Code: C91.10 - CHRONIC LYMPHOCYTIC LEUK OF B-CELL TYPE NOT ACHIEVE REMIS Status: Chronic Priority: High Current Visit: No - Patient Summary/Data Hospital Course: Pat presented to the emergency room with progressive cough, weakness and anorexia. Work-up in the emergency room suggested mild dehydration in the setting of Covid infection. She was not hypoxic. Patient was admitted to the hospital on observation status for gentle hydration. She did receive monoclonal antibodies at the time of admission because of her CLL and a high risk for progression to severe illness. Over the first 48 hours she did okay but then unfortunately had a decline in her respiratory status. She started to require supplemental oxygen and did have some progression of shortness of breath. Given the development of hypoxia she was started on a combination of dexamethasone and remdesivir. Over the next 48 hours she did have improvement in her clinical status. We have been able to wean her off the supplemental oxygen. Symptomatically she is feeling better though she does remain a little weak and still does not have much of an appetite. She has been off supplemental oxygen for more than 24 hours. She feels well enough to be safe at home at this time. Her will be there to help. Her vital signs have been stable and she has not had any fevers. I believe she is safe for outpatient management. I do not recommend continuing steroids or remdesivir at this time with her clinical improvement. She will increase activity and diet as tolerated. She should maintain quarantine through June 18. She does have a follow-up with oncology in 2 days time. - Patient Instructions Diet: Regular Diet as Tolerated Activity: As Tolerated Showering/Bathing: May Shower Notify Provider of: Fever, Increased Pain Other/Special Instructions: You were in the hospital for management of pneumonia caused by COVID-19. Your condition has been improving with therapies provided in the hospital. You do not need any specific treatment after hospital discharge. You could consider [id number] medications to help manage symptoms if you have cough, sputum or breakthrough fever. I would encourage you to increase your intake and especially protein intake as tolerated. You may increase your activity as tolerated but if you develop shortness of breath, weakness you should rest for a while before resuming your activities. I would encourage you to maintain quarantine through June 18. At that time you should have passed the infectious stage. - Discharge Plan *PRESCRIPTION DRUG MONITORING PROGRAM REVIEWED*: Not Applicable *COPY OF PRESCRIPTION DRUG MONITORING REPORT IN PATIENT LEO: Not Applicable Prescriptions/Med Rec: Ondansetron [Zofran ODT] 4 mg PO Q6H PRN #12 tab.dis PRN Reason: Nausea Home Medications: Home Meds Acyclovir [Zovirax] 400 mg PO BID 06/30/17 [History] Biotin 10,000 mcg PO DAILY 06/30/17 [History] Estradiol 0.5 mg PO DAILY 06/30/17 [History] Fexofenadine [Anne-Marie] 180 mg PO ASDIRECTED PRN 06/30/17 [History] Ondansetron [Zofran ODT] 4 mg PO Q6H PRN #20 tab.dis 02/29/20 [Rx] Acetaminophen [Acetaminophen Extra Strength] 1,000 mg PO Q6H PRN 07/01/20 [History] Venetoclax [Venclexta] 200 mg PO DAILY 07/01/20 [History] Ibrutinib [Imbruvica] 420 mg PO DAILY 06/04/21 [History] Ondansetron [Zofran ODT] 4 mg PO Q6H PRN #12 tab.dis 06/11/21 [Rx] Oxygen Therapy Mode: Room Air Patient Handouts: 10 Things You Can Do to Manage Your COVID-19 Symptoms at Home - [facility] (03/27/2021) Referrals: Shahbaz Burgos, [employer] [Nurse Practitioner] - 06/23/21 1:00 pm - Discharge Summary/Plan Comment DC Time >30 min.: No Total # of Minutes for Discharge Time: 25 - Patient Data Vitals - Most Recent: Last Vital Signs Temp 36.2 C 06/15/21 11:38 Pulse 57 L 06/15/21 11:38 Resp 16 06/15/21 11:38 BP 104/46 L 06/15/21 11:38 Pulse Ox 97 06/15/21 11:38 Weight - Most Recent: 52.707 kg I&O - Last 24 hours: Intake & Output 06/14/21 06/15/21 06/15/21 22:59 06:59 14:59 Intake Total 700 Balance 700 LESLYE Results - Last 24 hrs: Microbiology 06/11/21 15:45 Aerobic Blood Culture - Preliminary Blood - Arm, Left NO GROWTH AFTER 3 DAYS Anaerobic Blood Culture - Preliminary NO GROWTH AFTER 3 DAYS 06/11/21 15:30 Aerobic Blood Culture - Preliminary Blood - Arm, Left NO GROWTH AFTER 3 DAYS Anaerobic Blood Culture - Preliminary NO GROWTH AFTER 3 DAYS Med Orders - Current: Current Medications Acetaminophen (Acetaminophen 325 Mg Tab) 650 mg PO Q4H PRN PRN Reason: Pain (Mild 1-3)/fever Acyclovir (Acyclovir 200 Mg Cap) 400 mg PO BID [facility] Last Admin: 06/15/21 08:29 Dose: 400 mg Documented by: Dexamethasone (Dexamethasone 4 Mg/Ml Sdv) 6 mg IVPUSH Q24H [facility] Last Admin: 06/15/21 11:50 Dose: 6 mg Documented by: Enoxaparin Sodium (Enoxaparin 40 Mg/0.4 Ml Syringe) 40 mg SUBCUT Q24H [facility] Last Admin: 06/14/21 20:40 Dose: 40 mg Documented by: Estradiol (Estradiol 0.5 Mg Tab) 0.5 mg PO DAILY [facility] Last Admin: 06/15/21 08:29 Dose: 0.5 mg Documented by: Remdesivir 100 mg/ Sodium (Chloride) 100 mls @ 100 mls/hr IV Q24H [facility] Stop: 06/17/21 11:59 Last Admin: 06/15/21 11:50 Dose: 100 mls/hr Documented by: Loperamide HCl (Loperamide 2 Mg Cap) 2 mg PO Q4H PRN PRN Reason: Diarrhea Last Admin: 06/14/21 10:24 Dose: 2 mg Documented by: Melatonin (Melatonin 3 Mg Tab) 6 mg PO BEDTIME PRN PRN Reason: Sleep Last Admin: 06/14/21 21:31 Dose: 6 mg Documented by: Ondansetron HCl (Ondansetron 4 Mg/2 Ml Sdv) 4 mg IV Q4H PRN PRN Reason: Nausea/Vomiting Last Admin: 06/12/21 15:23 Dose: 4 mg Documented by: Venclexta 100mg Tab ((Ptom)) 0 each PO DAILY [facility] Last Admin: 06/15/21 08:29 Dose: 1 each Documented by: Imbruvica 420mg Tab ((Ptom)) 0 each PO Q24H [facility] Last Admin: 06/14/21 17:53 Dose: 1 each Documented by: Polyethylene Glycol (Polyethylene Glycol 3350 Powder 17 Gm Packet) 17 gm PO DAILY PRN PRN Reason: Constipation Sodium Chloride (Sodium Chloride 0.9% 10 Ml Syringe) 10 ml FLUSH ASDIRECTED PRN PRN Reason: Keep Vein Open Discontinued Medications Acyclovir (Acyclovir 200 Mg Cap) 200 mg PO ONETIME ONE Stop: 06/11/21 21:01 Last Admin: 06/11/21 20:53 Dose: 200 mg Documented by: Azithromycin (Azithromycin 250 Mg Tab) 500 mg PO ONETIME ONE Stop: 06/11/21 15:26 Last Admin: 06/11/21 15:45 Dose: 500 mg Documented by: Diphenhydramine HCl (Diphenhydramine 50 Mg/Ml Sdv) 50 mg IVPUSH ONETIME PRN PRN Reason: hypersensitivity reaction Enoxaparin Sodium (Enoxaparin 40 Mg/0.4 Ml Syringe) 40 mg SUBCUT DAILY [facility] Last Admin: 06/11/21 20:02 Dose: 40 mg Documented by: Epinephrine HCl (Epinephrine 1 Mg/Ml Sdv) 0.3 mg IM ASDIRECTED PRN PRN Reason: hypersensitivity reaction Famotidine (Famotidine 20 Mg/2 Ml Sdv) 20 mg IVPUSH ASDIRECTED PRN PRN Reason: hypersensitivity reaction Lactated Ringer's (Ringers, Lactated) 1,000 mls @ 1,000 mls/hr IV BOLUS ONE Stop: 06/11/21 13:24 Last Admin: 06/11/21 12:35 Dose: 1,000 mls/hr Documented by: Ceftriaxone Sodium 1 gm/ (Sodium Chloride) 50 mls @ 100 mls/hr IV Q24H [facility] Last Admin: 06/11/21 15:33 Dose: 100 mls/hr Documented by: Doxycycline Hyclate 100 mg/ (Sodium Chloride) 100 mls @ 100 mls/hr IV Q12H [facility] Last Admin: 06/11/21 16:10 Dose: Not Given Documented by: Ceftriaxone Sodium 1 gm/ (Sodium Chloride) 50 mls @ 100 mls/hr IV ONETIME ONE Stop: 06/11/21 15:54 Last Admin: 06/11/21 15:34 Dose: Not Given Documented by: CASIRIVIMAB/IMDEVIMAB 10 ml/ (Sodium Chloride) 160 mls @ 310 mls/hr IV ONETIME ONE Stop: 06/11/21 20:30 Last Admin: 06/11/21 19:45 Dose: 310 mls/hr Documented by: Sodium Chloride (Normal Saline) 1,000 mls @ 125 mls/hr IV ASDIRECTED [facility] Last Admin: 06/12/21 12:46 Dose: 125 mls/hr Documented by: Remdesivir 200 mg/ Sodium (Chloride) 250 mls @ 250 mls/hr IV ONETIME ONE Stop: 06/13/21 11:59 Last Admin: 06/13/21 11:55 Dose: 250 mls/hr Documented by: Influenza Virus Vaccine (Pharmacy To Dose - Influenza Vaccine) 1 each IM ONETIME ONE Stop: 06/12/21 10:01 Influenza Virus Vaccine (Flu Vacc [id number](65yr Up)/Pf 240 Mcg/0.7 Ml Syringe) 240 mcg IM .ONCE ONE Stop: 06/12/21 10:01 Last Admin: 06/12/21 10:10 Dose: 240 mcg Documented by: Methylprednisolone Sodium Succinate (Methylprednisolone Sodium Succinate 125 Mg/2 Ml Sdv) 125 mg IVPUSH ASDIRECTED PRN PRN Reason: hypersensitivity reaction Ondansetron HCl (Ondansetron 4 Mg/2 Ml Sdv) 4 mg IVPUSH ONETIME ONE Stop: 06/11/21 11:27 Last Admin: 06/11/21 11:49 Dose: 4 mg Documented by: Acyclovir 400mg (Ptom) 0 each PO BID [facility] Last Admin: 06/13/21 10:16 Dose: 1 each Documented by: Estradiol 1mg Ptom () 0 each PO DAILY [facility] Last Admin: 06/13/21 10:15 Dose: 1 each Documented by: Sodium Chloride (Sodium Chloride 0.9% 10 Ml Syringe) 10 ml FLUSH ASDIRECTED PRN PRN Reason: Keep Vein Open Last Admin: 06/11/21 11:50 Dose: 10 ml Documented by: Sodium Chloride (Sodium Chloride 0.9% 10 Ml Syringe) 30 ml FLUSH ASDIRECTED [facility] Stop: 06/11/21 22:00
== END 2021-06-15 14:33 | disposition home or self-care (01) | DRG 177 ==
LOC: JP.ED 10:38 → JP.2SS 16:51 → OBSVTOIN 06-13 10:20
PROVIDERS: ADMIT Hospitalist; ATTEND Internal Medicine
PROC: XW033G6 Introduction of REGN-COV2 Monoclonal Antibody into Peripheral Vein, Percutaneous Approach, New Technology Group 6 (ICD-10-PCS; 2021-06-11)
PROC: XW033E5 Introduction of Remdesivir Anti-infective into Peripheral Vein, Percutaneous Approach, New Technology Group 5 (ICD-10-PCS; principal; 2021-06-13)
PROC: 3E0333Z Introduction of Anti-inflammatory into Peripheral Vein, Percutaneous Approach (ICD-10-PCS; 2021-06-13)
DX: U07.1 COVID-19 (principal); R53.1 Weakness; J98.8 Other specified respiratory disorders; J12.82 Pneumonia due to coronavirus disease 2019; J96.01 Acute respiratory failure with hypoxia; C91.10 Chronic lymphocytic leukemia of B-cell type not having achieved remission; D84.9 Immunodeficiency, unspecified; E86.0 Dehydration; E78.00 Pure hypercholesterolemia, unspecified; Z23 Encounter for immunization; M19.90 Unspecified osteoarthritis, unspecified site; M85.80 Other specified disorders of bone density and structure, unspecified site; Z79.899 Other long term (current) drug therapy; Z87.01 Personal history of pneumonia (recurrent); Z90.89 Acquired absence of other organs; Z90.710 Acquired absence of both cervix and uterus
CPT/HCPCS: 36415 ×2; 71046 ×2; 80048; 80053; 81001; 83605; 84145; 85025; 85027; 86140; 87040 ×2; 87086; 90662; 94762 ×2; 96365; 96375; 99285; A9270 ×4; G0008; J0696; J1650 ×2; J2405 ×2; J7030 ×3; J7120; Q0243; U0002; 85379; 96367; 96372; G0378; J1100; J7050

== ENCOUNTER 2022-08-08 21:08 | Emergency (ER) | payer MEDICARE, OTHER ==
[2022-08-08] MEDS ORDERED: Methocarbamol 500 MG Tab PO ONE ×2 (21:39→23:14)
== END 2022-08-08 23:23 | disposition home or self-care (01) ==
LOC: JP.ED 21:08
DX: M43.6 Torticollis (principal); M62.838 Other muscle spasm; M19.90 Unspecified osteoarthritis, unspecified site
CPT/HCPCS: 36415; 72125; 76377; 80048; 82550; 85025; 86140; 99284; A9270

== ENCOUNTER 2022-11-12 20:45 | Emergency (ER) | payer MEDICARE, OTHER ==
[2022-11-12 22:33] LABS: ESTIMATED GFR 57 mL/min (>60); TROPONIN I HIGH SENSITIVITY 11.6 pg/mL (<=60.3)
[2022-11-12] MEDS: Lidocaine 5% 700 MG Patch TRDERM ONE (22:33)
== END 2022-11-12 23:35 | disposition home or self-care (01) ==
LOC: JP.ED 20:45
DX: M79.18 Myalgia, other site (principal); M54.6 Pain in thoracic spine; M19.90 Unspecified osteoarthritis, unspecified site; Z79.899 Other long term (current) drug therapy
CPT/HCPCS: 36415; 71250; 80053; 84484; 85025; 85379; 86140; 93005; 99284; A9270-GY

== ENCOUNTER 2023-02-05 06:17 | Emergency (ER) | payer MEDICARE, OTHER ==
[2023-02-05] MEDS ORDERED: Sodium Chloride 0.9% 10 ML Syringe FLUSH PRN ×2 (07:27→07:46)
[2023-02-05] MEDS ORDERED: fentaNYL 50 MCG/ML SDV IVPUSH ONE (07:28)
[2023-02-05] MEDS ORDERED: Acetaminophen/HYDROcodone 325-10 MG Tab PO ONE (07:30)
[2023-02-05 07:42] LABS: BASOPHILS PERCENT AUTO 0.2 % (0.1-1.3); EOSINOPHILS ABSOLUTE AUTO 0.18 K/uL (0.00-0.40); EOSINOPHILS PERCENT AUTO 3.3 % (0.0-5.4); HEMATOCRIT 31.2 % (34.3-46.0); HEMOGLOBIN 10.3 g/dL (11.2-15.5); IMMATURE GRAN PERCENT AUTO 0.2 % (0.0-0.7); LYMPHOCYTES ABSOLUTE AUTO 0.27 K/uL (0.8-3.3); MEAN CORPUSCULAR VOLUME 96.9 fL (81.4-99.0); MONOCYTES ABSOLUTE AUTO 0.58 K/uL (0.20-0.90); MONOCYTES PERCENT AUTO 10.6 % (3.3-12.6); NEUTROPHILS PERCENT AUTO 80.7 % (40.0-78.1); PLATELET COUNT,PLT 165 K/uL (130-375); RED BLOOD CELL COUNT 3.22 M/uL (3.77-5.24); WHITE BLOOD CELL COUNT,WBC 5.5 K/uL (3.2-11.0)
[2023-02-05 07:44] LABS: BASOPHILS ABSOLUTE AUTO 0.01 K/uL (0.00-0.10); IMMATURE GRAN ABSOLUTE AUTO 0.01 K/uL (0.00-0.23)
[2023-02-05] MEDS ORDERED: Sodium Chloride 0.9% 50 ML IV ONE (07:46)
[2023-02-05] MEDS ORDERED: Iopamidol 612 MG/ML 100 ML Bottle IV PRN (07:46)
[2023-02-05 07:58] LABS: CALCIUM 8.3 mg/dL (8.5-10.1); EST CRCL DRUG DOSING (CG) 35.07 mL/min; POTASSIUM,K 4.1 mmol/L (3.6-5.2)
[2023-02-05 07:59] LABS: ANION GAP 9.1 mmol/L (5.0-14.0)
== END 2023-02-05 10:19 | disposition home or self-care (01) ==
LOC: JP.ED 06:17
DX: M54.50 Low back pain, unspecified (principal); C91.12 Chronic lymphocytic leukemia of B-cell type in relapse; Z86.16 Personal history of COVID-19
CPT/HCPCS: 36415; 74177; 80048; 85025; 96374; 99284; A9270; J3010; J3490; Q9967

== ENCOUNTER 2023-07-27 14:56 | Emergency (ER) | payer MEDICARE, OTHER ==
[2023-07-27] MEDS ORDERED: Sodium Chloride 0.9% 10 ML Syringe FLUSH PRN (14:57)
[2023-07-27 15:19] LABS: BASOPHILS ABSOLUTE AUTO 0.03 K/uL (0.00-0.10); BASOPHILS PERCENT AUTO 0.8 % (0.1-1.3); EOSINOPHILS ABSOLUTE AUTO 0.03 K/uL (0.00-0.40); EOSINOPHILS PERCENT AUTO 0.8 % (0.0-5.4); HEMATOCRIT 33.9 % (34.3-46.0); HEMOGLOBIN 11.1 g/dL (11.2-15.5); IMMATURE GRAN PERCENT AUTO 0.3 % (0.0-0.7); LYMPHOCYTES ABSOLUTE AUTO 0.77 K/uL (0.8-3.3); LYMPHOCYTES PERCENT AUTO 19.7 % (11.4-47.7); MEAN CORPUSCULAR HEMOGLOBIN 32.2 pg (31.6-35.5); MEAN CORPUSCULAR HGB CONC 32.7 g/dL (31.6-35.5); MEAN CORPUSCULAR VOLUME 98.3 fL (81.4-99.0); MONOCYTES ABSOLUTE AUTO 0.67 K/uL (0.20-0.90); MONOCYTES PERCENT AUTO 17.2 % (3.3-12.6); NEUTROPHILS ABSOLUTE AUTO 2.39 K/uL (1.0-7.6); NEUTROPHILS PERCENT AUTO 61.2 % (40.0-78.1); PLATELET COUNT,PLT 160 K/uL (130-375); RED BLOOD CELL COUNT 3.45 M/uL (3.77-5.24); WHITE BLOOD CELL COUNT,WBC 3.9 K/uL (3.2-11.0)
[2023-07-27 15:20] LABS: IMMATURE GRAN ABSOLUTE AUTO 0.01 K/uL (0.00-0.23)
[2023-07-27 15:42] LABS: ANION GAP 9.8 mmol/L (5.0-14.0); C-REACTIVE PROTEIN 0.12 mg/dL (0.0-0.3); CALCIUM 8.1 mg/dL (8.5-10.1); CREATININE 1.1 mg/dL (0.6-1.0); EST CRCL DRUG DOSING (CG) 31.62 mL/min; POTASSIUM,K 4.2 mmol/L (3.6-5.2); TROPONIN I HIGH SENSITIVITY 5.5 pg/mL (<=60.3)
[2023-07-27 15:49] LABS: INR 0.9; PROTHROMBIN TIME 9.6 sec (9.2-10.6); PTT,PARTIAL THROMBOPLSTIN TIME 22.1 sec (21.8-27.3)
[2023-07-27 16:05] LABS: CORONAVIRUS COVID-19 NAA NEGATIVE (NEGATIVE); INFLUENZA A NAA NEGATIVE (NEGATIVE); INFLUENZA B NAA NEGATIVE (NEGATIVE); RESPIRATORY SYNCYTIAL VIR NAA NEGATIVE (NEGATIVE)
== END 2023-07-27 16:42 | disposition home or self-care (01) ==
LOC: JP.ED 14:56
DX: C91.12 Chronic lymphocytic leukemia of B-cell type in relapse (principal); R07.89 Other chest pain; Z86.16 Personal history of COVID-19; Z20.822 Contact with and (suspected) exposure to COVID-19
CPT/HCPCS: 0241U; 36415; 71045; 71045-26; 80048; 84145; 84484; 85025; 85379; 85610; 85730; 86140; 93005; 93010; 99284; 99285

== ENCOUNTER 2024-02-28 10:21 | Emergency (ER) | payer MEDICARE, OTHER ==
[2024-02-28] MEDS: Diltiazem 25 MG/5 ML SDV IVPUSH ONE (11:00)
[2024-02-28 11:10] LABS: A/G RATIO 1.1 (1.2-2.2); ALANINE AMINOTRANSFERASE,ALT 17 U/L (12-78); ALBUMIN 3.2 g/dL (3.4-5.0); ALKALINE PHOSPHATASE 58 U/L (46-116); ANION GAP 8.1 mmol/L (5.0-14.0); ASPARTATE AMNIOTRANSFERASE,AST 19 U/L (15-37); BILIRUBIN TOTAL 1.1 mg/dL (0.2-1.0); BLOOD UREA NITROGEN,BUN 16 mg/dL (7-18); CALCIUM 8.8 mg/dL (8.5-10.1); CARBON DIOXIDE,CO2 28 mmol/L (21-32); CHLORIDE,CL 105 mmol/L (100-108); CREATININE 1.2 mg/dL (0.6-1.0); EST CRCL DRUG DOSING (CG) 28.73 mL/min; ESTIMATED GFR 45 mL/min (>60); GLUCOSE RANDOM 83 mg/dL (74-106); POTASSIUM,K 4.6 mmol/L (3.6-5.2); SODIUM,NA 141 mmol/L (140-148); TROPONIN I HIGH SENSITIVITY 20.4 pg/mL (<=60.3)
[2024-02-28] MEDS: Metoprolol Succinate 25 MG Tab.ER PO ONE (13:33)
== END 2024-02-28 15:56 | disposition home or self-care (01) ==
LOC: JP.ED 10:21
DX: R00.2 Palpitations (principal); E78.00 Pure hypercholesterolemia, unspecified; Z86.16 Personal history of COVID-19; Z90.710 Acquired absence of both cervix and uterus; Z79.899 Other long term (current) drug therapy
CPT/HCPCS: 36415; 80053; 84484; 96374; 99283; 99284; A9270; J3490

== ENCOUNTER 2024-05-03 15:06 | Inpatient (IN) | payer MEDICARE, OTHER ==
[2024-05-03 16:09] LABS: BASOPHILS PERCENT AUTO 0.4 % (0.1-1.3); EOSINOPHILS PERCENT AUTO 0.2 % (0.0-5.4); HEMATOCRIT 33.6 % (34.3-46.0); HEMOGLOBIN 11.5 g/dL (11.2-15.5); IMMATURE GRAN PERCENT AUTO 0.4 % (0.0-0.7); LYMPHOCYTES ABSOLUTE AUTO 0.64 K/uL (0.8-3.3); LYMPHOCYTES PERCENT AUTO 12.8 % (11.4-47.7); MEAN CORPUSCULAR HEMOGLOBIN 32.6 pg (31.6-35.5); MEAN CORPUSCULAR HGB CONC 34.2 g/dL (31.6-35.5); MEAN CORPUSCULAR VOLUME 95.2 fL (81.4-99.0); MONOCYTES ABSOLUTE AUTO 0.93 K/uL (0.20-0.90); MONOCYTES PERCENT AUTO 18.6 % (3.3-12.6); NEUTROPHILS ABSOLUTE AUTO 3.37 K/uL (1.0-7.6); NEUTROPHILS PERCENT AUTO 67.6 % (40.0-78.1); PLATELET COUNT,PLT 155 K/uL (130-375); RED BLOOD CELL COUNT 3.53 M/uL (3.77-5.24)
[2024-05-03 16:10] LABS: BASOPHILS ABSOLUTE AUTO 0.02 K/uL (0.00-0.10); EOSINOPHILS ABSOLUTE AUTO 0.01 K/uL (0.00-0.40); IMMATURE GRAN ABSOLUTE AUTO 0.02 K/uL (0.00-0.23)
[2024-05-03] MEDS: Sodium Chloride 0.9% 1,000 ML IV SCH (16:10)
[2024-05-03 16:24] LABS: CALCIUM 8.1 mg/dL (8.5-10.1); CREATININE 1.4 mg/dL (0.6-1.0); EST CRCL DRUG DOSING (CG) 23.84 mL/min; POTASSIUM,K 3.7 mmol/L (3.6-5.2)
[2024-05-03 16:29] LABS: ANION GAP 13.7 mmol/L (5.0-14.0)
[2024-05-03 16:33] LABS: LACTIC ACID 0.9 mmol/L (0.4-2.0)
[2024-05-03] MEDS ORDERED: Ondansetron 4 MG/2 ML SDV IV PRN (19:50)
[2024-05-03] MEDS ORDERED: Ondansetron 4 MG Tab.DIS PO PRN (19:50)
[2024-05-03] MEDS ORDERED: Loperamide 2 MG Cap PO PRN (19:50)
[2024-05-03] MEDS: Acetaminophen 325 MG Tab PO SCH (20:34)
[2024-05-03] MEDS: Lactobacillus Rhamnosus GG (Probiotic) Cap PO SCH (20:34)
[2024-05-03] MEDS: Lactated Ringers 1,000 ML IV SCH (20:42)
[2024-05-03] MEDS ORDERED: ACYCLOVIR 400 MG PO PRN (20:46)
[2024-05-03] MEDS: MOLNUPIRAVIR 200 MG PO SCH (21:38)
[2024-05-04] MEDS: Melatonin 3 MG Tab PO PRN (03:17)
[2024-05-04 03:42] LABS: HEMATOCRIT 30.4 % (34.3-46.0); HEMOGLOBIN 10.4 g/dL (11.2-15.5); MEAN CORPUSCULAR HEMOGLOBIN 32.8 pg (31.6-35.5); MEAN CORPUSCULAR HGB CONC 34.2 g/dL (31.6-35.5); MEAN CORPUSCULAR VOLUME 95.9 fL (81.4-99.0); RED BLOOD CELL COUNT 3.17 M/uL (3.77-5.24); WHITE BLOOD CELL COUNT,WBC 3.1 K/uL (3.2-11.0)
[2024-05-04] MEDS: Sodium Chloride 0.9% 1,000 ML IV ONE (05:47)
[2024-05-04 07:50] LABS: CALCIUM 7.1 mg/dL (8.5-10.1); CREATININE 1.3 mg/dL (0.6-1.0); EST CRCL DRUG DOSING (CG) 25.83 mL/min; POTASSIUM,K 3.5 mmol/L (3.6-5.2)
[2024-05-04 07:51] LABS: ANION GAP 19.5 mmol/L (5.0-14.0)
[2024-05-04] MEDS ORDERED: IMBRUVICA 420 MG PO SCH (09:00)
[2024-05-04] MEDS: VENCLEXTA 100 MG PO SCH (09:13)
[2024-05-04] MEDS: Benzocaine/Cetylpyridinium/Menthol Lozenge MUCMEM PRN (09:22)
[2024-05-04] MEDS: Benzonatate 100 MG Cap PO PRN (09:22)
[2024-05-04] MEDS: Potassium Chloride 20 MEQ Tab.ER PO ONE (09:22)
[2024-05-04] MEDS: Estradiol 0.5 MG Tab PO SCH (13:21)
[2024-05-04] MEDS: IMBRUVICA 420 MG PO SCH (15:31)
[2024-05-04] MEDS ORDERED: Acetaminophen 500 MG Tab PO SCH (21:00)
[2024-05-04] MEDS: diphenhydrAMINE 25 MG Cap PO SCH (21:09)
[2024-05-04] MEDS: Acetaminophen 500 MG Tab PO SCH (21:10)
== END 2024-05-05 10:40 | disposition home or self-care (01) | DRG 178 ==
LOC: JP.ED 15:06 → JP.MS 18:55 → OBSVTOIN 05-04 11:55
PROVIDERS: ADMIT Registered Nurse; ATTEND Internal Medicine
DX: U07.1 COVID-19 (principal); C91.11 Chronic lymphocytic leukemia of B-cell type in remission; D84.9 Immunodeficiency, unspecified; Z66 Do not resuscitate; E78.00 Pure hypercholesterolemia, unspecified; M19.90 Unspecified osteoarthritis, unspecified site; E86.0 Dehydration; N18.32 Chronic kidney disease, stage 3b; I48.0 Paroxysmal atrial fibrillation; Z79.899 Other long term (current) drug therapy; Z87.01 Personal history of pneumonia (recurrent); Z90.89 Acquired absence of other organs; Z90.710 Acquired absence of both cervix and uterus; Z90.722 Acquired absence of ovaries, bilateral; Z90.79 Acquired absence of other genital organ(s)
CPT/HCPCS: 36415 ×2; 71045; 80048 ×2; 83605; 85025; 85027; 99222; A9270 ×10; J7030 ×2; J7120 ×2; 97161-GP; 99232; 99238

== ENCOUNTER 2024-08-02 11:08 | Inpatient (IN) | payer MEDICARE, OTHER ==
[2024-08-02 11:44] LABS: HEMATOCRIT 28.5 % (34.3-46.0); MEAN CORPUSCULAR HEMOGLOBIN 33.8 pg (31.6-35.5); MEAN CORPUSCULAR HGB CONC 35.1 g/dL (31.6-35.5); MEAN CORPUSCULAR VOLUME 96.3 fL (81.4-99.0); PLATELET COUNT,PLT 32 K/uL (130-375); RED BLOOD CELL COUNT 2.96 M/uL (3.77-5.24)
[2024-08-02 12:04] LABS: A/G RATIO 0.8 (1.2-2.2); ALANINE AMINOTRANSFERASE,ALT 17 U/L (12-78); ALBUMIN 2.5 g/dL (3.4-5.0); ALKALINE PHOSPHATASE 54 U/L (46-116); ASPARTATE AMNIOTRANSFERASE,AST 6 U/L (15-37); BILIRUBIN TOTAL 1.1 mg/dL (0.2-1.0); BLOOD UREA NITROGEN,BUN 20 mg/dL (7-18); CALCIUM 8.2 mg/dL (8.5-10.1); CARBON DIOXIDE,CO2 23 mmol/L (21-32); CHLORIDE,CL 97 mmol/L (100-108); CREATININE 1.1 mg/dL (0.6-1.0); EST CRCL DRUG DOSING (CG) 28.58 mL/min; ESTIMATED GFR 50 mL/min (>60); GLUCOSE RANDOM 141 mg/dL (74-106); PROTEIN TOTAL,TP 5.5 g/dL (6.4-8.2); SODIUM,NA 133 mmol/L (140-148)
[2024-08-02 12:07] LABS: ANION GAP 15.7 mmol/L (5.0-14.0); POTASSIUM,K 2.7 mmol/L (3.6-5.2); WHITE BLOOD CELL COUNT,WBC 0.4 K/uL (3.2-11.0)
[2024-08-02 12:11] LABS: LACTIC ACID 1.5 mmol/L (0.4-2.0)
[2024-08-02 12:18] LABS: BAND ABSOLUTE MAN 0.04 K/uL; BAND PERCENT MAN 9 % (5-11); EOSINOPHILS PERCENT MAN 1 % (2-4); LYMPHOCYTES ABSOLUTE MAN 0.08 K/uL (0.8-3.3); LYMPHOCYTES PERCENT MAN 20 % (24-44); METAMYELOCYTE ABSOLUTE MAN 0.01 K/uL; METAMYELOCYTE PERCENT MAN 2 %; MONOCYTES ABSOLUTE MAN 0.06 K/uL (0.20-0.90); MONOCYTES PERCENT MAN 16 % (2-6); MYELOCYTE ABSOLUTE MAN 0; MYELOCYTE PERCENT MAN 1 %; SEG NEUTROPHILS PERCENT MAN 51 % (36-66)
[2024-08-02 12:21] LABS: APPEARANCE,URINE SLIGHTLY CLOUDY (CLEAR); BILIRUBIN,URINE MODERATE (NEGATIVE); COLOR,URINE YELLOW (YELLOW); GLUCOSE,URINE NEGATIVE (NEGATIVE); KETONES,URINE 40 mg/dL (NEGATIVE); LEUKOCYTE ESTERASE,URINE NEGATIVE (NEGATIVE); NITRITE,URINE NEGATIVE (NEGATIVE); OCCULT BLOOD,URINE LARGE (NEGATIVE); PROTEIN,URINE >=300 mg/dL (NEGATIVE); UROBILINOGEN,URINE 0.2 EU/dL (0.2-1.0)
[2024-08-02] MEDS: Sodium Chloride 0.9% 10 ML Syringe FLUSH PRN (12:32)
[2024-08-02] MEDS: Iopamidol 755 Mg/ML 100 ML Bottle IV SCH (12:32)
[2024-08-02] MEDS: Sodium Chloride 0.9% 60 ML IV ONE (12:32)
[2024-08-02 12:33] LABS: RBC,URINE 20-30 (0-5); WBC,URINE 0-5 (0-5)
[2024-08-02 12:34] LABS: AMORPHOUS SEDIMENT,URINE MANY; BACTERIA,URINE FEW; EPITHELIAL CELLS,URINE MANY; MUCUS,URINE FEW
[2024-08-02] MEDS: Potassium Chloride 10 MEQ in Premix Bag 1 BAG IV ONE (12:45)
[2024-08-02] MEDS: Potassium Chloride 20 MEQ Tab.ER PO ONE ×2 (12:45→21:25)
[2024-08-02] MEDS: Magnesium Sulfate/Water Premix 2 GM in Premix Bag 1 BAG IV ONE (12:46)
[2024-08-02] MEDS: cefTRIAXone 2 GM in Sodium Chloride 0.9% 50 ML IV ONE (14:03)
[2024-08-02] MEDS: Sodium Chloride 0.9% 500 ML IV ONE ×2 (14:18→15:05)
[2024-08-02] MEDS ORDERED: Polyethylene Glycol 3350 Powder 17 GM Packet PO PRN (16:35)
[2024-08-02] MEDS ORDERED: Norepinephrine Bit/D5W Premix 4 MG in Premix Bag 1 BAG IV SCH (16:35)
[2024-08-02] MEDS ORDERED: Cefepime 2 GM in Sodium Chloride 0.9% 50 ML IV SCH (16:35)
[2024-08-02] MEDS ORDERED: Acetaminophen 325 MG Tab PO PRN (16:35)
[2024-08-02] MEDS ORDERED: Sodium Chloride 0.9% 10 ML Syringe FLUSH PRN (16:35)
[2024-08-02] MEDS ORDERED: Ondansetron 4 MG/2 ML SDV IV PRN (16:35)
[2024-08-02] MEDS: Cefepime 2 GM in Sodium Chloride 0.9% 50 ML IV SCH (17:38)
[2024-08-02] MEDS: IMBRUVICA 420 MG PO SCH (18:09)
[2024-08-02] MEDS: Estradiol 0.5 MG Tab PO SCH (18:09)
[2024-08-02] MEDS: VENCLEXTA 100 MG PO SCH (18:09)
[2024-08-02] MEDS: traMADol 50 MG Tab PO PRN (18:47)
[2024-08-02] MEDS: Sodium Chloride 0.9% 1,000 ML IV SCH (18:51)
[2024-08-02] MEDS: OLANZapine 5 MG Tab PO SCH (20:32)
[2024-08-03 05:46] LABS: HEMATOCRIT 24.7 % (34.3-46.0); HEMOGLOBIN 8.7 g/dL (11.2-15.5); MEAN CORPUSCULAR HEMOGLOBIN 33.7 pg (31.6-35.5); MEAN CORPUSCULAR HGB CONC 35.2 g/dL (31.6-35.5); MEAN CORPUSCULAR VOLUME 95.7 fL (81.4-99.0); PLATELET COUNT,PLT 31 K/uL (130-375); RED BLOOD CELL COUNT 2.58 M/uL (3.77-5.24)
[2024-08-03 05:47] LABS: WHITE BLOOD CELL COUNT,WBC 0.7 K/uL (3.2-11.0)
[2024-08-03 05:50] LABS: ANION GAP 10.5 mmol/L (5.0-14.0); CREATININE 0.8 mg/dL (0.6-1.0); EST CRCL DRUG DOSING (CG) 42.08 mL/min; MAGNESIUM 2.1 mg/dL (1.8-2.4); POTASSIUM,K 3.5 mmol/L (3.6-5.2)
[2024-08-03] MEDS: Benzocaine/Cetylpyridinium/Menthol Lozenge MUCMEM PRN (05:53)
[2024-08-03 06:15] LABS: BAND ABSOLUTE MAN 0.04 K/uL; BAND PERCENT MAN 5 % (5-11); EOSINOPHILS ABSOLUTE MAN 0.01 K/uL (0.00-0.40); EOSINOPHILS PERCENT MAN 2 % (2-4); LYMPHOCYTES ABSOLUTE MAN 0.16 K/uL (0.8-3.3); LYMPHOCYTES PERCENT MAN 23 % (24-44); MONOCYTES ABSOLUTE MAN 0.13 K/uL (0.20-0.90); MONOCYTES PERCENT MAN 19 % (2-6); MYELOCYTE ABSOLUTE MAN 0.01; MYELOCYTE PERCENT MAN 1 %; NEUTROPHILS ABSOLUTE MAN 0.35 K/uL (1.0-7.6); SEG NEUTROPHILS PERCENT MAN 50 % (36-66)
[2024-08-03] MEDS: Potassium Chloride 20 MEQ Tab.ER PO ONE ×2 (08:56→17:29)
[2024-08-03] MEDS ORDERED: Non-Formulary Medication 1 Each (Ibrutinib [Imbruvica] 140 MG Capsule) PO SCH (09:00)
[2024-08-03] MEDS ORDERED: IMBRUVICA 420 MG PO SCH (09:00)
[2024-08-03] MEDS ORDERED: Estradiol 0.5 MG Tab PO SCH (09:00)
[2024-08-03] MEDS ORDERED: Non-Formulary Medication 1 Each (Estradiol [Estradiol] 1 MG Tablet) PO SCH (09:00)
[2024-08-03] MEDS ORDERED: VENETOCLAX 100 MG PO SCH (09:00)
[2024-08-04] MEDS: Loperamide 2 MG Cap PO PRN (00:32)
[2024-08-04 05:39] LABS: HEMATOCRIT 28.8 % (34.3-46.0); HEMOGLOBIN 9.8 g/dL (11.2-15.5); MEAN CORPUSCULAR HEMOGLOBIN 33.4 pg (31.6-35.5); MEAN CORPUSCULAR VOLUME 98.3 fL (81.4-99.0); PLATELET COUNT,PLT 42 K/uL (130-375); RED BLOOD CELL COUNT 2.93 M/uL (3.77-5.24); WHITE BLOOD CELL COUNT,WBC 1.3 K/uL (3.2-11.0)
[2024-08-04 05:50] LABS: CREATININE 0.8 mg/dL (0.6-1.0); EST CRCL DRUG DOSING (CG) 41.74 mL/min; POTASSIUM,K 4.5 mmol/L (3.6-5.2)
[2024-08-04 05:51] LABS: ANION GAP 11.5 mmol/L (5.0-14.0)
[2024-08-04 06:11] LABS: HYPOCHROMASIA OCCASIONAL
[2024-08-04 14:06] LABS: SEG NEUTROPHILS PERCENT MAN 36 % (36-66)
[2024-08-04 14:07] LABS: BAND ABSOLUTE MAN 0.31 K/uL; BAND PERCENT MAN 24 % (5-11); LYMPHOCYTES ABSOLUTE MAN 0.35 K/uL (0.8-3.3); LYMPHOCYTES PERCENT MAN 27 % (24-44); MONOCYTES ABSOLUTE MAN 0.17 K/uL (0.20-0.90); MONOCYTES PERCENT MAN 13 % (2-6); NEUTROPHILS ABSOLUTE MAN 0.47 K/uL (1.0-7.6)
== END 2024-08-04 11:49 | disposition home or self-care (01) | DRG 809 ==
LOC: JP.ED 11:08 → UNDOADMIN 15:49 → JP.ICU 15:49 → EEVIPCON 15:50
PROVIDERS: ADMIT Hospitalist; ATTEND Hospitalist
DX: D61.810 Antineoplastic chemotherapy induced pancytopenia (principal); C85.10 Unspecified B-cell lymphoma, unspecified site; C83.30 Diffuse large B-cell lymphoma, unspecified site; D84.9 Immunodeficiency, unspecified; D70.1 Agranulocytosis secondary to cancer chemotherapy; I95.9 Hypotension, unspecified; Z66 Do not resuscitate; I48.91 Unspecified atrial fibrillation; E78.00 Pure hypercholesterolemia, unspecified; M19.90 Unspecified osteoarthritis, unspecified site; E87.6 Hypokalemia; E86.0 Dehydration; T45.1X5A Adverse effect of antineoplastic and immunosuppressive drugs, initial encounter; D69.6 Thrombocytopenia, unspecified; Z79.899 Other long term (current) drug therapy; Z87.01 Personal history of pneumonia (recurrent); Z90.89 Acquired absence of other organs; Z90.710 Acquired absence of both cervix and uterus; Z90.722 Acquired absence of ovaries, bilateral; Z90.79 Acquired absence of other genital organ(s); Z98.890 Other specified postprocedural states
CPT/HCPCS: 36415; 71275 ×2; 74174 ×2; 80053; 81001; 83605; 83615; 83735; 84100; 84145; 84550; 85025; 86140; 87040 ×2; 93005; 93010; 99285; A9270; J0696; J3475; J3480; J3490 ×2; J7030; J7040 ×2; Q9967; 80048; 84132; 96361; 96365; 96366; 96367; 96368; 97161-GP; 99222; 99232; 99238; J0692; J1642